=== PATIENT | female | born 1935 | race Caucasian/White ===

== ENCOUNTER → 2017-11-01 11:33 | Outpatient (CLI) | payer MEDICARE, OTHER, SELFPAY ==
[2017-11-01 12:13] LABS: Add Manual Diff / Slide Review NO; Basophils Percent Auto 0.7 % (0-2); Eosinophils Percent Auto 1.3 % (2-4); Lymphocytes Percent Auto 14.5 % (25-40); Mean Corpuscular HGB Conc 33.4 % (30-36); Mean Corpuscular Hemoglobin 31.5 PG (26-34); Mean Corpuscular Volume 94.2 fL (80-100); Monocytes Percent Auto 5.5 % (3-14); Neutrophils Absolute Auto 5700 /uL (3000-5900); Platelet Count 206 X10^3/uL (150-400); Red Blood Cell Count 4.46 X10^6/uL (4.0-5.2); Red Cell Distribution Width 13.2 % (11.6-14.8); White Blood Cell Count 7.3 X10^3/uL (4.5-11.0)
[2017-11-01 12:35] LABS: Erythrocyte Sedimentation Rate 7 MM/HR (0-20)
[2017-11-01 12:59] LABS: Hemoglobin A1C% w Est Avg Glu 6.9 % (4.0-6.0)
[2017-11-01 13:33] LABS: Alanine Aminotransferase 37 IU/L (9-52); Albumin Globulin Ratio 1.6 (1.0-2.8); Alkaline Phosphatase 78 U/L (38-126); Aspartate Aminotransferase 32 IU/L (14-36); BUN Creatinine Ratio 27.1 (6-22); Bilirubin Total 1.4 mg/dL (0.2-1.3); Blood Urea Nitrogen 19 mg/dL (7-17); Calcium 9.3 mg/dL (8.4-10.2); Carbon Dioxide 31 mmol/L (22-32); Chloride 97 mmol/L (98-107); Estimated Glomerular Filt Rate > 60.0 mL/min (>60); Globulin 2.5 g/dL (1.7-4.1); Glucose 219 mg/dL (80-110); HEMOLYSIS < 15 (0-50); Potassium 4.6 mmol/L (3.4-5.1); Sodium 138 mmol/L (137-145); Total Protein 6.5 g/dL (6.3-8.2)
== END ==
PROVIDERS: PCP Family Medicine; Visit Provider Family Medicine
DX: R51 Headache (principal); E11.9 Type 2 diabetes mellitus without complications
CPT/HCPCS: 36415; 80053; 83036; 85025; 85651

== ENCOUNTER → 2018-01-30 11:17 | Outpatient (CLI) | payer MEDICARE, OTHER, SELFPAY ==
[2018-01-30 12:39] LABS: Hemoglobin A1C% w Est Avg Glu 6.9 % (4.0-6.0)
== END ==
PROVIDERS: Family Provider Physician Assistant; PCP Family Medicine; Visit Provider Family Medicine
DX: E11.9 Type 2 diabetes mellitus without complications (principal)
CPT/HCPCS: 36415; 83036

== ENCOUNTER 2020-06-08 13:27 | Emergency (ER) | payer MEDICARE, OTHER, SELFPAY ==
[2020-06-08 13:33] VITALS: BP 171/72; PULSE 79; RESP 22; TEMP 36.4; O2SAT 98
--- NOTE | 2020-06-08 13:38 | ED_ITS ---
HPI - Fall General Chief Complaint: Fall Stated Complaint: hit head in fall today Time Seen by Provider: 06/08/20 13:33 Source: patient and family Mode of arrival: Wheelchair Limitations: other (Dementia) History of Present Illness HPI Narrative: Patient is an 85-year-old female. History of Alzheimer's. Not on anticoagulation. Here for evaluation of head injury. Patient was in the parking lot here at the hospital getting out of the back of the vehicle when she lost her balance. She reached out to try to catch herself from the vehicle however missed and fell hitting her head on the ground. There was no loss of consciousness. Patient has no complaints other than a bump on the back of her head. She is at baseline mental status per family who is at bedside. Related Data Previous Rx's Medication Instructions Recorded divalproex 125 mg capsule,delayed 125 mg PO ONCE #60 cap 05/24/20 release sprinkle donepezil 10 mg tablet 10 mg PO BEDTIME #90 tab 05/24/20 Allergies Allergy/AdvReac Type Severity Reaction Status Date / Time No Known Drug Allergies Allergy Verified 05/24/20 10:37 Review of Systems Constitutional Constitutional: Denies headache(s) Eyes Eyes: Denies change in vision ENT Ears, Nose, Mouth, and Throat: Denies headache(s) Cardiovascular Cardiovascular: Denies chest pain and Denies dyspnea Respiratory Respiratory: Denies dyspnea Musculoskeletal Musculoskeletal: Denies back pain Integumentary/Breasts Comments: Bump on head Neurologic Neurologic: Denies behavioral changes and Denies headache(s) Psychiatric Psychiatric: Denies behavioral changes Hematologic/Lymphatic On Anticoagulants: No Allergic/Immunologic Allergic/Immunologic: Denies urticaria Patient History Medical History Advance care planning Anxiety (Unknown) Breast cancer (1979) Cataracts, bilateral (~1999) Chickenpox (Unknown) Dementia Depression (Unknown) Diabetes (Unknown) Fecal incontinence (2015) Fibromyalgia (Unknown) Generalized headaches (Unknown) Hoarseness Hypercholesterolemia (Unknown) Malaria (Unknown) Memory impairment (07/13/16) Memory loss (Unknown) Migraines (Unknown) Mumps (Unknown) Poor short term memory Stiff neck (09/10/17) Type 2 diabetes mellitus without complication, without long-term current use of insulin (09/10/17) Urinary incontinence (1999) Surgical History History of tonsillectomy Status post appendectomy Status post dilation and curettage Family History Father Heart disease Social History marital status: lives independently: Yes caregiver/support person: Yes education level: master's degree Smoking Status: Never smoker alcohol intake: current substance use type: does not use Smoking Status: Never smoker alcohol intake frequency: 0-2 drinks per day Substance Use Type: does not use Exam Initial Vital Signs Initial Vital Signs: Vital Signs Temperature 97.5 F L 06/08/20 13:33 Pulse Rate 79 06/08/20 13:33 Respiratory Rate 22 06/08/20 13:33 Blood Pressure 171/72 H 06/08/20 13:33 Pulse Oximetry 98 06/08/20 13:33 Const General: cooperative, healthy appearing and comfortable HENMT Head: abrasion, contusion and No laceration Resp Effort & Inspection: normal respiratory effort Cardio Rate: regular rate Back/Spine/Pelvis Cervical Spine: No cervical spinal tenderness Thoracic/Lumbar Spine: No thoracic spinal tenderness and No lumbar spinal tenderness Skin Other: Contusion to back of head Neuro Other: Baseline mental status per family at bedside Extrem General: normal to inspection and capillary refill normal Psych Appearance: grossly normal and well kempt Course Orders Ordered: ED Orders 06/08/20 13:37 CT head/brain wo con Stat Vital Signs Vital signs: Vital Signs - 8 hr 06/08/20 13:33 Temperature 97.5 F L Pulse Rate 79 Respiratory Rate 22 Blood Pressure 171/72 H Pulse Oximetry 98 MDM - Fall Imaging Data CT scan - head: Radiologist's Impression: [address] [id number] Scan ReportSigned Patient: Vickie Alston LMR#: [id number]: 5Acct:[id number]/Sex: 85 / FDate of Service: 06/08/20Loc: EDAccession Number: [id number] Procedure: CT head/brain wo con Ordering Provider: Puneet Delacruz D.O. PROCEDURE: CT HEAD/BRAIN WO CON INDICATIONS: fall hit head no blood thinners TECHNIQUE: Noncontrast 4.5 mm thick angled axial sections acquired from the foramen magnum to the vertex, with coronal and sagittal reformats. For radiation dose reduction, the following was used: automated exposure control, adjustment of mA and/or kV according to patient size. COMPARISON: None. FINDINGS: Image quality: Excellent. CSF spaces: Basal cisterns are patent. No extra-axial fluid collections. The ventricles are symmetric in size and shape. Brain: No intracranial bleeds or masses. There is cerebral volume loss for age, with resultant ventricular and sulcal prominence. There are periventricular and deep white matter chronic small vessel ischemic changes. There is intracranial internal carotid artery atherosclerosis. Skull and face: Calvarium and visualized facial bones appear intact, without suspicious lesions. Large midline parietal scalp hematoma. Sinuses: Visualized sinuses and mastoids are clear. IMPRESSION: No acute intracranial disease process. Dictated by: Maryam Riojas MD, PhD on 06/08/2020 at 13:04 Approved by: Maryam Riojas MD, PhD on 06/08/2020 at 13:07 [facility] Narrative Medical decision making narrative: The abrasion on the back of her head needs no intervention here in the ER. Head CT shows no signs of skull fracture or bleed. She is at baseline mental status per family who is at bedside. She does not report any musculoskeletal injury. I feel we can hold on any rib further radiologic studies for now. Patient and family given return precautions and fo llow-up instructions. They expressed understanding and agreement. Discharge Plan Departure Patient Disposition: Home Clinical Impression: Fall, Closed head injury, Abrasion of scalp, Contusion of scalp Instructions: How to Prevent Falls Activity Restrictions/Additional Instructions: She can shower like normal in use open water like normal. Be careful over the next couple days with brushing her hair. Return to the emergency department for any new worsening symptoms Prescriptions: No Action divalproex 125 mg capsule, delayed rel sprinkle 125 mg PO ONCE Qty: 60 RF: 1 donepezil 10 mg tablet 10 mg PO BEDTIME Qty: 90 RF: 3 Referrals: Samantha Light ARNP [Primary Care Provider] -
== END 2020-06-08 14:34 | disposition home or self-care (01) ==
PROVIDERS: Emergency Provider Emergency Medicine; Family Provider Physician Assistant; PCP Nurse Practitioner
DX: S09.90XA Unspecified injury of head, initial encounter (principal); S00.03XA Contusion of scalp, initial encounter; S00.01XA Abrasion of scalp, initial encounter; W19.XXXA Unspecified fall, initial encounter; G30.9 Alzheimer's disease, unspecified; F02.80 Dementia in other diseases classified elsewhere, unspecified severity, without behavioral disturbance, psychotic disturbance, mood disturbance, and anxiety; E11.9 Type 2 diabetes mellitus without complications
CPT/HCPCS: 70450; 99283; 99284

== ENCOUNTER → 2020-07-20 11:13 | Outpatient (CLI) | payer MEDICARE, OTHER, SELFPAY ==
--- NOTE | 2020-07-20 | DI.MG.S_ITS ---
UNILATERAL RIGHT DIGITAL SCREENING MAMMOGRAM 3D/2D WITH CAD: 07/20/2020 CLINICAL: Routine screening. Breast cancer. Comparison is made to exams dated: 08/09/2017 mammogram, 07/18/2017 mammogram, and 05/02/2016 mammogram - [facility]. The tissue of right breast is extremely dense, which lowers the sensitivity of mammography. Current study was also evaluated with a Computer Aided Detection (CAD) system. No significant masses, calcifications, or other findings are seen in the breast. There has been no significant interval change. IMPRESSION: NEGATIVE There is no mammographic evidence of malignancy. A 1 year screening mammogram is recommended. This exam was interpreted at Station ID: [id number]. NOTE: For mammograms, a report in lay terms will be sent to the patient. Approximately 15% of breast malignancies will not be visualized mammographically. In the management of a palpable breast mass, a negative mammogram must not discourage biopsy of a clinically suspicious lesion. Electronically Signed By: Piyush nicole/amy:07/20/2020 16:17:14 letter sent: Normal Exam ACR BI-RADS Category 1: Negative [id number]
== END ==
PROVIDERS: Family Provider Physician Assistant; PCP Nurse Practitioner; Referring Provider Nurse Practitioner; Visit Provider Nurse Practitioner
DX: Z12.31 Encounter for screening mammogram for malignant neoplasm of breast (principal); Z85.3 Personal history of malignant neoplasm of breast
CPT/HCPCS: 77063; 77067

== ENCOUNTER → 2020-10-12 11:04 | Outpatient (CLI) | payer MEDICARE, OTHER, SELFPAY ==
[2020-10-12] MEDS: COVID-19 VACC, Ad26(JANSSEN)/PF 0.5 ML IM (11:14)
== END ==
PROVIDERS: Family Provider Physician Assistant; PCP Nurse Practitioner; Visit Provider Internal Medicine
DX: Z23 Encounter for immunization (principal)
CPT/HCPCS: 0031A; 91303

== ENCOUNTER → 2020-10-25 15:28 | Outpatient (ROUT) | payer MEDICARE, OTHER, SELFPAY ==
[2020-10-25 15:30] LABS: RBC Urine None Seen (0-5/HPF)
[2020-10-25 15:42] LABS: Appearance Urine UA CLOUDY; Bilirubin Urine UA NEGATIVE (NEGATIVE); Color Urine UA YELLOW; Glucose Urine UA NEGATIVE (Negative); Ketones Urine UA NEGATIVE (NEGATIVE); Leukocyte Esterase Urine UA NEGATIVE (NEGATIVE); Nitrite Urine UA POSITIVE (Negative); Occult Blood Urine UA NEGATIVE (Negative); Protein Urine UA NEGATIVE (Negative); Urobilinogen Urine UA 0.2 E.U./dL (0.2)
[2020-10-25 15:57] LABS: Amorphous Sediment Urine 2+; Bacteria Urine Many (>30); Culture Indicated Urine Specimen Cultured; Squamous Epithelial Cell Urine 0-1 /HPF (0-5/HPF); WBC Urine 1-5/HPF (0-5/HPF)
== END ==
PROVIDERS: Family Provider Physician Assistant; PCP Nurse Practitioner; Visit Provider Nurse Practitioner Family
DX: R29.6 Repeated falls (principal); R41.0 Disorientation, unspecified
CPT/HCPCS: 81001; 87077; 87086; 87186

== ENCOUNTER 2020-11-22 19:12 | Emergency (ER) | payer MEDICARE, OTHER, SELFPAY ==
--- NOTE | 2020-11-22 19:12 | DI.CT.S_ITS ---
PROCEDURE: CT HEAD/BRAIN WO CON INDICATIONS: fall with hx of dementia, contusion on back of head TECHNIQUE: Noncontrast 4.5 mm thick angled axial sections acquired from the foramen magnum to the vertex, with coronal and sagittal reformats. For radiation dose reduction, the following was used: automated exposure control, adjustment of mA and/or kV according to patient size. COMPARISON: [facility], CT, CT HEAD/BRAIN WO CON, 06/08/2020, 13:37. FINDINGS: Image quality: Excellent. CSF spaces: Basal cisterns are patent. No extra-axial fluid collections. The ventricles are symmetric in size and shape. Brain: No intracranial bleeds or masses. There is moderate cerebral volume loss for age, with resultant ventricular and sulcal prominence. There are moderate periventricular and deep white matter chronic small vessel ischemic changes. There is intracranial internal carotid artery atherosclerosis. Skull and face: Calvarium and visualized facial bones appear intact, without suspicious lesions. Posterior vertex scalp contusion/hematoma. Sinuses: Visualized sinuses and mastoids are clear. IMPRESSION: 1. CT head without acute intracranial abnormalities or acute calvarial fractures. 2. Age-related senescent changes and sequela of chronic small vessel ischemic disease. 3. Posterior vertex scalp contusion/hematoma. Dictated by: Rufus Middleton M.D. on 11/22/2020 at 20:09 Approved by: Rufus Middleton M.D. on 11/22/2020 at 20:11
[2020-11-22 19:15] VITALS: BP 125/95; PULSE 75; RESP 16; TEMP 36.6; O2SAT 98; BMI 20.1
--- NOTE | 2020-11-22 20:23 | ED_ITS ---
HPI - Fall General Chief Complaint: Fall Stated Complaint: GLF, not on thinners Time Seen by Provider: 11/22/20 19:12 Source: patient and EMS Mode of arrival: EMS History of Present Illness HPI Narrative: Patient is an 85-year-old female not on anticoagulation who is brought in by EMS from the local [facility] for evaluation of a fall. Patient states that she fell ?because I am getting old ?it appears that she has had multiple falls recently. She did hit her head. There was no loss of consciousness. She does report some pain in her right shoulder but this potentially is not new from the fall today as she states that it is been hurting since she fell a couple days ago. She denies any hip pain. No neck pain. Related Data Previous Rx's Medication Instructions Recorded donepezil 10 mg tablet 10 mg PO BEDTIME #90 tab 05/24/20 divalproex 125 mg capsule,delayed 125 mg PO ONCE #180 cap 06/14/20 release sprinkle acetaminophen 325 mg capsule 650 mg PO Q4H PRN #30 cap 08/08/20 bisacodyl 5 mg tablet 10 mg PO BEDTIME PRN #30 tab 08/08/20 magnesium hydroxide 400 mg/5 mL 30 ml PO DAILY PRN #3000 ml 08/08/20 oral suspension (Milk of Magnesia) Allergies Allergy/AdvReac Type Severity Reaction Status Date / Time No Known Drug Allergies Allergy Verified 06/14/20 12:13 Review of Systems Constitutional Constitutional: Denies headache(s) Eyes Comments: Patient denies any vision changes ENT Ears, Nose, Mouth, and Throat: Denies headache(s) Cardiovascular Comments: She denies any chest pain Respiratory Comments: She denies any shortness of breath Gastrointestinal Comments: She denies any abdominal pain Musculoskeletal Musculoskeletal: Reports as per HPI Integumentary/Breasts Comments: A bump to the back of her head Neurologic Neurologic: Denies headache(s) Psychiatric Psychiatric: Reports system reviewed and no additional complaints, except as documented Hematologic/Lymphatic On Anticoagulants: No Allergic/Immunologic Allergic/Immunologic: Reports system reviewed and no additional complaints, except as documented Patient History Medical History Advance care planning Anxiety (Unknown) Breast cancer (1979) Cataracts, bilateral (~1999) Chickenpox (Unknown) Dementia Depression (Unknown) Diabetes (Unknown) Fecal incontinence (2016) Fibromyalgia (Unknown) Generalized headaches (Unknown) Hoarseness Hypercholesterolemia (Unknown) Malaria (Unknown) Memory impairment (07/13/16) Memory loss (Unknown) Migraines (Unknown) Mumps (Unknown) Poor short term memory Stiff neck (09/10/17) Type 2 diabetes mellitus without complication, without long-term current use of insulin (09/10/17) Urinary incontinence (1999) Surgical History History of tonsillectomy Status post appendectomy Status post dilation and curettage Family History Father Heart disease Social History marital status: lives independently: Yes caregiver/support person: Yes education level: master's degree Smoking Status: Never smoker alcohol intake: current substance use type: does not use Smoking Status: Never smoker alcohol intake frequency: 0-2 drinks per day Substance Use Type: does not use Exam Initial Vital Signs Initial Vital Signs: Vital Signs Temperature 98 F 11/22/20 19:15 Pulse Rate 75 11/22/20 19:15 Respiratory Rate 16 11/22/20 19:15 Blood Pressure 125/95 H 11/22/20 19:15 Pulse Oximetry 98 11/22/20 19:15 Const General: cooperative, healthy appearing and comfortable [facility] Head: No abrasion, contusion (Right posterior aspect to the scalp.) and No laceration Eyes General: appearance normal, both eyes and all related structures Resp Auscultation: clear to auscultation bilaterally Cardio Rate: regular rate Back/Spine/Pelvis Cervical Spine: No cervical spinal tenderness Skin General: no rashes or lesions noted Neuro General: patient alert, patient awake and moves all extremities Extrem Other: She has some discomfort with active movement of her right shoulder however with passive movement she reports no discomfort. Her right elbow and right wrist unremarkable. Left upper extremity is unremarkable. Pelvis is stable. No lower extremity findings. Psych Appearance: grossly normal and well kempt Course Orders Ordered: ED Orders 11/22/20 19:12 CT head/brain wo con Stat Vital Signs Vital signs: Vital Signs - 8 hr 11/22/20 20:46 Pulse Rate 72 Respiratory Rate 17 Pulse Oximetry 99 MDM - Fall Imaging Data CT scan - head: Radiologist's Impression: [place] [id number] [place] [id number] Scan ReportSigned Patient: Vickie Alston LMR#: [id number]: 5Acct:[id number]/Sex: 85 / FDate of Service: 11/22/20Loc: EDAccession Number: [id number] Procedure: CT head/brain wo con Ordering Provider: Puneet Delacruz D.O. PROCEDURE: CT HEAD/BRAIN WO CON INDICATIONS: fall with hx of dementia, contusion on back of head TECHNIQUE: Noncontrast 4.5 mm thick angled axial sections acquired from the foramen magnum to the vertex, with coronal and sagittal reformats. For radiation dose reduction, the following was used: automated exposure control, adjustment of mA and/or kV according to patient size. COMPARISON: Merged With [facility], CT, CT HEAD/BRAIN WO CON, 06/08/2020, 13:37. FINDINGS: Image quality: Excellent. CSF spaces: Basal cisterns are patent. No extra-axial fluid collections. The ventricles are symmetric in size and shape. Brain: No intracranial bleeds or masses. There is moderate cerebral volume loss for age, with resultant ventricular and sulcal prominence. There are moderate periventricular and deep white matter chronic small vessel ischemic changes. There is intracranial internal carotid artery atherosclerosis. Skull and face: Calvarium and visualized facial bones appear intact, without suspicious lesions. Posterior vertex scalp contusion/hematoma. Sinuses: Visualized sinuses and mastoids are clear. IMPRESSION: 1. CT head without acute intracranial abnormalities or acute calvarial fractures. 2. Age-related senescent changes and sequela of chronic small vessel ischemic disease. 3. Posterior vertex scalp contusion/hematoma. Dictated by: Rufus Middleton M.D. on 11/22/2020 at 20:09 Approved by: Rufus Middleton M.D. on 11/22/2020 at 20:11 [facility] Narrative Medical decision making narrative: CT scan of the head shows no acute bleed. No signs of skull fracture. She does have a contusion to the right side seen on the CT scan and this is consistent with what is found on the exam. There is no overlying skin issues that need intervention here in the ER. No other acute issues were found on the exam no reported by the patient or family who is at bedside. I feel that we can hold on further workup for now. Will discharge patient home with return precautions. Everyone expressed understanding and agreement. Discharge Plan Departure Patient Disposition: Home Clinical Impression: Fall, Contusion of scalp Instructions: How to Prevent Falls Activity Restrictions/Additional Instructions: She can continue all of her medications as directed. Contact her primary doctor for a follow-up. Return to the emergency department for any new or worsening symptoms Prescriptions: No Action magnesium hydroxide [Milk of Magnesia] 400 mg/5 mL suspension 30 ml PO DAILY PRN (Reason: constipation) Qty: 3000 RF: 3 bisacodyl 5 mg tablet 10 mg PO BEDTIME PRN (Reason: constipation) Qty: 30 RF: 3 acetaminophen 325 mg capsule 650 mg PO Q4H PRN (Reason: fever or pain) Qty: 30 RF: 3 divalproex 125 mg capsule, delayed rel sprinkle 125 mg PO ONCE Qty: 180 RF: 3 donepezil 10 mg tablet 10 mg PO BEDTIME Qty: 90 RF: 3 Referrals: Elvi Pendleton MD [Primary Care Provider] -
[2020-11-22 20:46] VITALS: PULSE 72; RESP 17; O2SAT 99
== END 2020-11-22 20:54 | disposition home or self-care (01) ==
PROVIDERS: Emergency Provider Emergency Medicine; Family Provider Physician Assistant; PCP Internal Medicine
DX: S00.03XA Contusion of scalp, initial encounter (principal); M25.511 Pain in right shoulder; W19.XXXA Unspecified fall, initial encounter
CPT/HCPCS: 70450; 99283; 99284

== ENCOUNTER → 2020-12-17 07:32 | Outpatient (ROUT) | payer MEDICARE, OTHER, SELFPAY ==
[2020-12-17 07:34] LABS: Bacteria Urine None Seen; RBC Urine None Seen (0-5/HPF); WBC Urine None Seen (0-5/HPF)
[2020-12-17 07:39] LABS: Appearance Urine UA CLEAR; Bilirubin Urine UA NEGATIVE (NEGATIVE); Color Urine UA YELLOW; Glucose Urine UA 2+ g/dL (Negative); Ketones Urine UA NEGATIVE (NEGATIVE); Leukocyte Esterase Urine UA NEGATIVE (NEGATIVE); Nitrite Urine UA NEGATIVE (Negative); Occult Blood Urine UA NEGATIVE (Negative); Protein Urine UA NEGATIVE (Negative); Urobilinogen Urine UA 0.2 E.U./dL (0.2)
[2020-12-17 07:44] LABS: Culture Indicated Urine Cult Not Indicated; Urine Comments Microscopic Normal
== END ==
PROVIDERS: PCP Internal Medicine; Visit Provider Registered Nurse
DX: N39.9 Disorder of urinary system, unspecified (principal)
CPT/HCPCS: 81001

== ENCOUNTER 2020-12-31 17:03 | Emergency (ER) | payer MEDICARE, OTHER, SELFPAY ==
[2020-12-31 17:05] VITALS: BP 183/81; PULSE 80; RESP 21; TEMP 36.8; O2SAT 99
--- NOTE | 2020-12-31 17:05 | DI.RAD.S_ITS ---
PROCEDURE: XR RIBS LT MIN 3V W CXR1V INDICATIONS: left rib pain, GLF TECHNIQUE: 2 views of the left ribs were acquired, along with a single view chest. COMPARISON: None. FINDINGS: Surgical changes and devices: None. Bones and chest wall: Nondisplaced left 9th and minimally displaced posterior 10th rib fractures noted. No pneumothorax. Lungs and pleura: No pleural effusions or pneumothorax. Lungs appear clear. Mediastinum: Mediastinal contours appear normal. Heart size is normal. IMPRESSION: Left 9th and 10th rib fractures without pneumothorax. Incidental cholelithiasis in the right upper quadrant noted. Approved by: Stiven Jackson M.D. on 12/31/2020 at 17:17
--- NOTE | 2020-12-31 17:10 | ED.FALL ---
HPI - Fall <Darius Gurrola PA-C - Last Filed: 01/01/21 13:38> General Chief Complaint: Fall Stated Complaint: GLF, hip pain Time Seen by Provider: 12/31/20 17:12 Source: EMS Mode of arrival: EMS History of Present Illness HPI Narrative: Vickie presents today with chief complaint of ground level fall that occurred at her memory care center earlier today. She has had frequent falls recently and was brought here via EMS. She is complaining of left-sided rib pain. EMS reports that there was no loss of consciousness. Patient reports that she tripped in her room. She has significant past medical if surgery of dementia, poor short-term memory, anxiety. Patient's POA came in about a half an hour after the initial history. She reported that the patient has had 3 falls over the last 3 days. She reports that she has frequent falls but this is a bit more frequent than normal. Related Data Previous Rx's Medication Instructions Recorded donepezil 10 mg tablet 10 mg PO BEDTIME #90 tab 05/24/20 divalproex 125 mg capsule,delayed 125 mg PO ONCE #180 cap 06/14/20 release sprinkle acetaminophen 325 mg capsule 650 mg PO Q4H PRN #30 cap 08/08/20 bisacodyl 5 mg tablet 10 mg PO BEDTIME PRN #30 tab 08/08/20 magnesium hydroxide 400 mg/5 mL 30 ml PO DAILY PRN #3000 ml 08/08/20 oral suspension (Milk of Magnesia) oxycodone 5 mg capsule 5 mg PO TID PRN #14 cap 12/31/20 Allergies Allergy/AdvReac Type Severity Reaction Status Date / Time No Known Drug Allergies Allergy Verified 12/31/20 17:05 Review of Systems <Darius Gurrola PA-C - Last Filed: 01/01/21 13:38> Review of Systems Narrative: As per HPI Patient History <Darius Gurrola PA-C - Last Filed: 01/01/21 13:38> Medical History Advance care planning Anxiety (Unknown) Breast cancer (1979) Cataracts, bilateral (~2000) Chickenpox (Unknown) Dementia Depression (Unknown) Diabetes (Unknown) Fecal incontinence (2016) Fibromyalgia (Unknown) Generalized headaches (Unknown) Hoarseness Hypercholesterolemia (Unknown) Malaria (Unknown) Memory impairment (07/13/16) Memory loss (Unknown) Migraines (Unknown) Mumps (Unknown) Poor short term memory Stiff neck (09/10/17) Type 2 diabetes mellitus without complication, without long-term current use of insulin (09/10/17) Urinary incontinence (1999) Surgical History History of tonsillectomy Status post appendectomy Status post dilation and curettage Family History Father Heart disease Social History marital status: lives independently: Yes caregiver/support person: Yes education level: master's degree Smoking Status: Never smoker alcohol intake: current substance use type: does not use Smoking Status: Never smoker alcohol intake frequency: 0-2 drinks per day Substance Use Type: does not use Exam <Darius Gurrola PA-C - Last Filed: 01/01/21 13:38> Narrative Exam Narrative: Exam Narrative: Const General: cooperative, healthy appearing, comfortable, no acute distress, well developed and well groomed Nutritional Appearance: average body habitus Orientation: alert and oriented x3 HENMT Head: normal to inspection and atraumatic, no hematoma or abrasions noted, no scalp tenderness Ears: hearing grossly normal bilaterally, no hemotympanum noted Nose: external nose normal and nares normal Face and sinus: normal facial exam Neck Neck: normal visual inspection and supple, no midline spinal tenderness, full range of motion without discomfort Resp Effort & Inspection: normal respiratory effort, able to speak in complete sentences, no audible wheezes, not labored, no nasal flaring and no respiratory distress, clear to auscultation bilaterally Cardiac Regular rate and rhythm, no discernible murmur, rubs or gallops. GI Nondistended, nontender to palpation Musculoskeletal No tenderness noted to bilateral upper extremities. Full range of motion of bilateral upper extremities and lower extremities. No bony tenderness to lower extremities. No pelvic pain or instability noted. Skin No abrasions or bruising noted. Neuro General: alert, oriented x3, gait normal, tone normal and moves all extremities Cognition: normal cognition Speech: speech normal Gait: normal gait Psych Appearance: grossly normal and well kempt Mental Status: mental status grossly normal Speech and Movement: speech and movement normal Mood: congruent mood Affect: normal affect Initial Vital Signs Initial Vital Signs: Vital Signs Temperature 98.2 F 12/31/20 17:05 Pulse Rate 80 12/31/20 17:05 Respiratory Rate 21 12/31/20 17:05 Blood Pressure 183/81 H 12/31/20 17:05 Pulse Oximetry 99 12/31/20 17:05 <Karmen Mesa MD - Last Filed: 01/01/21 17:02> Initial Vital Signs Initial Vital Signs: Vital Signs Temperature 98.2 F 12/31/20 17:05 Pulse Rate 80 12/31/20 17:05 Respiratory Rate 21 12/31/20 17:05 Blood Pressure 183/81 H 12/31/20 17:05 Pulse Oximetry 99 12/31/20 17:05 Course <Darius Gurrola PA-C - Last Filed: 01/01/21 13:38> Orders Ordered: Discontinued Medications Morphine Sulfate (Morphine 2 Mg/Ml Inj) 2 mg IV NOW ONE Stop: 12/31/20 18:05 Last Admin: 12/31/20 18:26 Dose: 2 mg Documented by: ATAYLOR Vital Signs Vital signs: Vital Signs - 8 hr 12/31/20 17:05 Temperature 98.2 F Pulse Rate 80 Respiratory Rate 21 Blood Pressure 183/81 H Pulse Oximetry 99 <Karmen Mesa MD - Last Filed: 01/01/21 17:02> Orders Ordered: Discontinued Medications Morphine Sulfate (Morphine 2 Mg/Ml Inj) 2 mg IV NOW ONE Stop: 12/31/20 18:05 Last Admin: 12/31/20 18:26 Dose: 2 mg Documented by: ATAYLOR Vital Signs Vital signs: Vital Signs - 8 hr 12/31/20 17:05 Temperature 98.2 F Pulse Rate 80 Respiratory Rate 21 Blood Pressure 183/81 H Pulse Oximetry 99 MDM - Fall <Darius Gurrola PA-C - Last Filed: 01/01/21 13:38> Lab Data Result diagrams: 12/31/20 18:40 12/31/20 18:40 Labs: Lab Results 12/31/20 12/31/20 12/31/20 Range/Units 18:40 18:40 18:40 WBC 9.3 (4.5-11.0) X10^3/uL RBC 4.56 (4.0-5.2) X10^6/uL Hgb 13.6 (12.0-16.0) g/dL Hct 41.2 (36-46) % MCV 90.4 (80-100) fL MCH 29.9 (26-34) PG MCHC 33.1 (30-36) % RDW 13.7 (11.6-14.8) % Plt Count 287 (150-400) X10^3/uL Neut % (Auto) 77.5 H (50-75) % Lymph % (Auto) 15.3 L (25-40) % Stephenson % (Auto) 5.9 (3-14) % Eos % (Auto) 0.7 L (2-4) % Baso % (Auto) 0.6 (0-2) % Neut # (Auto) 7200 H (4003-4898) /uL Lymph # (Auto) 1400 (8650-2264) /uL Stephenson # (Auto) 500 (0-900) /uL Eos # (Auto) 100 (0-450) /uL Baso # (Auto) 100 (0-100) /uL PT 10.9 (10.1-12.7) SECONDS INR 1.0 (0.9-1.3) Sodium 132 L (137-145) mmol/L Potassium 3.6 (3.4-5.1) mmol/L Chloride 99 (98-107) mmol/L Carbon Dioxide 23 (22-32) mmol/L BUN 16 (7-17) mg/dL Creatinine 0.62 (0.52-1.04) mg/dL Estimated GFR > 60.0 (>60) mL/min BUN/Creatinine Ratio 25.8 H (6-22) Glucose 258 H (80-110) mg/dL Calcium 9.3 (8.4-10.2) mg/dL Total Bilirubin 1.6 H (0.2-1.3) mg/dL AST 28 (14-36) IU/L ALT 18 (<35) IU/L Alkaline Phosphatase 109 (38-126) U/L Total Creatine Kinase (30-135) U/L CK-MB (CK-2) CK-MB (CK-2) Rel Index Troponin I (0.01-0.034) ng/mL Total Protein 6.8 (6.3-8.2) g/dL Albumin 4.1 (3.5-5.0) g/dL Globulin 2.7 (1.7-4.1) g/dL Albumin/Globulin Ratio 1.5 (1.0-2.8) SARS-CoV-2 (PCR) (Negative) 12/31/20 12/31/20 Range/Units 18:40 18:40 WBC (4.5-11.0) X10^3/uL RBC (4.0-5.2) X10^6/uL Hgb (12.0-16.0) g/dL Hct (36-46) % MCV (80-100) fL MCH (26-34) PG MCHC (30-36) % RDW (11.6-14.8) % Plt Count (150-400) X10^3/uL Neut % (Auto) (50-75) % Lymph % (Auto) (25-40) % Stephenson % (Auto) (3-14) % Eos % (Auto) (2-4) % Baso % (Auto) (0-2) % Neut # (Auto) (2532-2624) /uL Lymph # (Auto) (1466-5090) /uL Stephenson # (Auto) (0-900) /uL Eos # (Auto) (0-450) /uL Baso # (Auto) (0-100) /uL PT (10.1-12.7) SECONDS INR (0.9-1.3) Sodium (137-145) mmol/L Potassium (3.4-5.1) mmol/L Chloride (98-107) mmol/L Carbon Dioxide (22-32) mmol/L BUN (7-17) mg/dL Creatinine (0.52-1.04) mg/dL Estimated GFR (>60) mL/min BUN/Creatinine Ratio (6-22) Glucose (80-110) mg/dL Calcium (8.4-10.2) mg/dL Total Bilirubin (0.2-1.3) mg/dL AST (14-36) IU/L ALT (<35) IU/L Alkaline Phosphatase (38-126) U/L Total Creatine Kinase 67 (30-135) U/L CK-MB (CK-2) TNP CK-MB (CK-2) Rel Index TNP Troponin I < 0.012 (0.01-0.034) ng/mL Total Protein (6.3-8.2) g/dL Albumin (3.5-5.0) g/dL Globulin (1.7-4.1) g/dL Albumin/Globulin Ratio (1.0-2.8) SARS-CoV-2 (PCR) Negative (Negative) MDM Narrative Medical decision making narrative: Vickie presents with what appears to be an isolated fracture to 2 of her ribs. The rest of her examination is reassuring. I called and discussed her injuries and the case with her memory care unit and they agreed to bring her back as long she had a prescription for pain management. She has not required much pain medication here in the emergency department. We will send a prescription for oxycodone back with her. POA and patient both agree to this plan. <Karmen Mesa MD - Last Filed: 01/01/21 17:02> Lab Data Labs: Lab Results 12/31/20 12/31/20 12/31/20 Range/Units 18:40 18:40 18:40 WBC 9.3 (4.5-11.0) X10^3/uL RBC 4.56 (4.0-5.2) X10^6/uL Hgb 13.6 (12.0-16.0) g/dL Hct 41.2 (36-46) % MCV 90.4 (80-100) fL MCH 29.9 (26-34) PG MCHC 33.1 (30-36) % RDW 13.7 (11.6-14.8) % Plt Count 287 (150-400) X10^3/uL Neut % (Auto) 77.5 H (50-75) % Lymph % (Auto) 15.3 L (25-40) % Stephenson % (Auto) 5.9 (3-14) % Eos % (Auto) 0.7 L (2-4) % Baso % (Auto) 0.6 (0-2) % Neut # (Auto) 7200 H (0723-8012) /uL Lymph # (Auto) 1400 (3695-0267) /uL Stephenson # (Auto) 500 (0-900) /uL Eos # (Auto) 100 (0-450) /uL Baso # (Auto) 100 (0-100) /uL PT 10.9 (10.1-12.7) SECONDS INR 1.0 (0.9-1.3) Sodium 132 L (137-145) mmol/L Potassium 3.6 (3.4-5.1) mmol/L Chloride 99 (98-107) mmol/L Carbon Dioxide 23 (22-32) mmol/L BUN 16 (7-17) mg/dL Creatinine 0.62 (0.52-1.04) mg/dL Estimated GFR > 60.0 (>60) mL/min BUN/Creatinine Ratio 25.8 H (6-22) Glucose 258 H (80-110) mg/dL Calcium 9.3 (8.4-10.2) mg/dL Total Bilirubin 1.6 H (0.2-1.3) mg/dL AST 28 (14-36) IU/L ALT 18 (<35) IU/L Alkaline Phosphatase 109 (38-126) U/L Total Creatine Kinase (30-135) U/L CK-MB (CK-2) CK-MB (CK-2) Rel Index Troponin I (0.01-0.034) ng/mL Total Protein 6.8 (6.3-8.2) g/dL Albumin 4.1 (3.5-5.0) g/dL Globulin 2.7 (1.7-4.1) g/dL Albumin/Globulin Ratio 1.5 (1.0-2.8) SARS-CoV-2 (PCR) (Negative) 12/31/20 12/31/20 Range/Units 18:40 18:40 WBC (4.5-11.0) X10^3/uL RBC (4.0-5.2) X10^6/uL Hgb (12.0-16.0) g/dL Hct (36-46) % MCV (80-100) fL MCH (26-34) PG MCHC (30-36) % RDW (11.6-14.8) % Plt Count (150-400) X10^3/uL Neut % (Auto) (50-75) % Lymph % (Auto) (25-40) % Stephenson % (Auto) (3-14) % Eos % (Auto) (2-4) % Baso % (Auto) (0-2) % Neut # (Auto) (1965-7504) /uL Lymph # (Auto) (4367-8773) /uL Stephenson # (Auto) (0-900) /uL Eos # (Auto) (0-450) /uL Baso # (Auto) (0-100) /uL PT (10.1-12.7) SECONDS INR (0.9-1.3) Sodium (137-145) mmol/L Potassium (3.4-5.1) mmol/L Chloride (98-107) mmol/L Carbon Dioxide (22-32) mmol/L BUN (7-17) mg/dL Creatinine (0.52-1.04) mg/dL Estimated GFR (>60) mL/min BUN/Creatinine Ratio (6-22) Glucose (80-110) mg/dL Calcium (8.4-10.2) mg/dL Total Bilirubin (0.2-1.3) mg/dL AST (14-36) IU/L ALT (<35) IU/L Alkaline Phosphatase (38-126) U/L Total Creatine Kinase 67 (30-135) U/L CK-MB (CK-2) TNP CK-MB (CK-2) Rel Index TNP Troponin I < 0.012 (0.01-0.034) ng/mL Total Protein (6.3-8.2) g/dL Albumin (3.5-5.0) g/dL Globulin (1.7-4.1) g/dL Albumin/Globulin Ratio (1.0-2.8) SARS-CoV-2 (PCR) Negative (Negative) Discharge Plan Departure Patient Disposition: Home Clinical Impression: Closed traumatic nondisplaced fracture of rib Instructions: DI for Rib Fracture, How to Prevent Falls Activity Restrictions/Additional Instructions: It was very nice to meet you this evening. You Fractured 2 ribs on her left side. Please use the pain medication as needed for your symptoms. If you experience significant difficulty breathing, sudden worsening pain, or have any additional concerns or complaints do not hesitate to return for re-evaluation. Thank you Darius Gurrola PAC Prescriptions: New oxycodone 5 mg capsule 5 mg PO TID PRN (Reason: rib pain) Qty: 14 RF: 0 No Action magnesium hydroxide [Milk of Magnesia] 400 mg/5 mL suspension 30 ml PO DAILY PRN (Reason: constipation) Qty: 3000 RF: 3 bisacodyl 5 mg tablet 10 mg PO BEDTIME PRN (Reason: constipation) Qty: 30 RF: 3 acetaminophen 325 mg capsule 650 mg PO Q4H PRN (Reason: fever or pain) Qty: 30 RF: 3 divalproex 125 mg capsule, delayed rel sprinkle 125 mg PO ONCE Qty: 180 RF: 3 donepezil 10 mg tablet 10 mg PO BEDTIME Qty: 90 RF: 3 Referrals: Elvi Pendleton MD [Primary Care Provider] - <Karmen Mesa MD - Last Filed: 01/01/21 17:02> [facility]: I was immediately available in the department for consultation throughout this patient's visit. I agree with documentation as above. Karmen Mesa MD
--- NOTE | 2020-12-31 18:03 | DI.CT.S_ITS ---
PROCEDURE: CT HEAD/BRAIN WO CON INDICATIONS: fall, dizziness TECHNIQUE: Noncontrast 4.5 mm thick angled axial sections acquired from the foramen magnum to the vertex, with coronal and sagittal reformats. For radiation dose reduction, the following was used: automated exposure control, adjustment of mA and/or kV according to patient size. COMPARISON: [facility], CT, CT HEAD/BRAIN WO CON, 11/22/2020, 19:19. [facility], CT, CT HEAD/BRAIN WO CON, 06/08/2020, 13:37. FINDINGS: Image quality: Excellent. CSF spaces: Basal cisterns are patent. No extra-axial fluid collections. The ventricles are symmetric in size and shape. Brain: No acute intracranial hemorrhage or mass effect. There is cerebral volume loss for age, with resultant ventricular and sulcal prominence. There are periventricular and deep white matter chronic small vessel ischemic changes. There is intracranial internal carotid artery atherosclerosis. Skull and face: Calvarium and visualized facial bones appear intact, without suspicious lesions. Sinuses: Visualized sinuses and mastoids are clear. IMPRESSION: No acute intracranial abnormality. Chronic microvascular ischemic changes and diffuse cerebral volume loss appear stable. Dictated by: Piyush Sumner M.D. on 12/31/2020 at 19:16 Approved by: Piyush Sumner M.D. on 12/31/2020 at 19:21
[2020-12-31] MEDS: MORPHINE 2 MG/ML INJ IV (18:26)
[2020-12-31 18:39] VITALS: BP 179/84; PULSE 81; RESP 16; O2SAT 99
[2020-12-31 18:54] LABS: Add Manual Diff / Slide Review NO; Basophils Absolute Auto 100 /uL (0-100); Basophils Percent Auto 0.6 % (0-2); Eosinophils Absolute Auto 100 /uL (0-450); Eosinophils Percent Auto 0.7 % (2-4); Hematocrit 41.2 % (36-46); Hemoglobin 13.6 g/dL (12.0-16.0); Lymphocytes Absolute Auto 1400 /uL (1100-4500); Lymphocytes Percent Auto 15.3 % (25-40); Mean Corpuscular HGB Conc 33.1 % (30-36); Mean Corpuscular Hemoglobin 29.9 PG (26-34); Mean Corpuscular Volume 90.4 fL (80-100); Monocytes Absolute Auto 500 /uL (0-900); Monocytes Percent Auto 5.9 % (3-14); Neutrophils Absolute Auto 7200 /uL (1500-7000); Neutrophils Percent Auto 77.5 % (50-75); Platelet Count 287 X10^3/uL (150-400); Red Blood Cell Count 4.56 X10^6/uL (4.0-5.2); Red Cell Distribution Width 13.7 % (11.6-14.8); White Blood Cell Count 9.3 X10^3/uL (4.5-11.0)
[2020-12-31 18:56] LABS: Prothrombin Time 10.9 SECONDS (10.1-12.7)
[2020-12-31 19:01] LABS: Alanine Aminotransferase 18 IU/L (<35); Albumin 4.1 g/dL (3.5-5.0); Albumin Globulin Ratio 1.5 (1.0-2.8); Alkaline Phosphatase 109 U/L (38-126); Aspartate Aminotransferase 28 IU/L (14-36); BUN Creatinine Ratio 25.8 (6-22); Bilirubin Total 1.6 mg/dL (0.2-1.3); Blood Urea Nitrogen 16 mg/dL (7-17); Calcium 9.3 mg/dL (8.4-10.2); Carbon Dioxide 23 mmol/L (22-32); Chloride 99 mmol/L (98-107); Creatine Kinase 67 U/L (30-135); Estimated Glomerular Filt Rate > 60.0 mL/min (>60); Globulin 2.7 g/dL (1.7-4.1); Glucose 258 mg/dL (80-110); HEMOLYSIS 20 (0-50); Potassium 3.6 mmol/L (3.4-5.1); Sodium 132 mmol/L (137-145); Total Protein 6.8 g/dL (6.3-8.2)
[2020-12-31 19:03] VITALS: PULSE 80; O2SAT 93
[2020-12-31 19:12] LABS: Troponin I < 0.012 ng/mL (0.01-0.034)
[2020-12-31 21:22] LABS: COVID19 - ADMIT (NP swab/PCR) Negative (Negative)
[2020-12-31 21:34] VITALS: BP 167/73; O2SAT 91
[2020-12-31 21:45] VITALS: BP 167/73; PULSE 80; RESP 16; O2SAT 94
== END 2020-12-31 21:45 | disposition home or self-care (01) ==
PROVIDERS: Emergency Provider Physician Assistant; PCP Internal Medicine
DX: S22.42XA Multiple fractures of ribs, left side, initial encounter for closed fracture (principal); W19.XXXA Unspecified fall, initial encounter; R29.6 Repeated falls; Z20.822 Contact with and (suspected) exposure to COVID-19; R07.9 Chest pain, unspecified
CPT/HCPCS: 70450; 71101; 80053; 82550; 84484; 85025; 85610; 87635; 93005; 93010; 96374; 99284; C9803; J2270

== ENCOUNTER 2021-01-07 16:48 | Emergency (ER) | payer MEDICARE, OTHER, SELFPAY ==
[2021-01-07 17:16] VITALS: BP 150/70; PULSE 75; RESP 14; TEMP 36.7; O2SAT 94
--- NOTE | 2021-01-07 17:22 | PC.NURSE ---
patient has lump on posterior aspect more on the right side of her head without laceration. She also has bruising on her left ribs from a previous fall.
--- NOTE | 2021-01-07 18:16 | ED.FALL ---
HPI - Fall General Chief Complaint: Fall Stated Complaint: fall/head pain Time Seen by Provider: 01/07/21 17:51 Source: EMS Mode of arrival: EMS History of Present Illness HPI Narrative: Patient is an 85-year-old female who resides at [facility] presenting with fall today. She actually has had increasing falls per her POA. She was seen and evaluated here on 12/31/2020 after a fall. She was found to have left-sided rib fractures she does have significant contusion on the left side. She fell again today. POA thinks that was transitioning from a sitting to a standing position. She uses a wheelchair more often these days. The she apparently hit her head but there is no evidence of head injury trauma she is not on any anticoagulation or anti-platelet. She at her baseline mental status. She has previously had UTI. Related Data Previous Rx's Medication Instructions Recorded donepezil 10 mg tablet 10 mg PO BEDTIME #90 tab 05/24/20 divalproex 125 mg capsule,delayed 125 mg PO ONCE #180 cap 06/14/20 release sprinkle acetaminophen 325 mg capsule 650 mg PO Q4H PRN #30 cap 08/08/20 bisacodyl 5 mg tablet 10 mg PO BEDTIME PRN #30 tab 08/08/20 magnesium hydroxide 400 mg/5 mL 30 ml PO DAILY PRN #3000 ml 08/08/20 oral suspension (Milk of Magnesia) oxycodone 5 mg capsule 5 mg PO TID PRN #14 cap 12/31/20 Allergies Allergy/AdvReac Type Severity Reaction Status Date / Time No Known Drug Allergies Allergy Verified 12/31/20 17:05 Review of Systems Review of Systems Narrative: see HPI, patient is poor historian Patient History Medical History Advance care planning Anxiety (Unknown) Breast cancer (1979) Cataracts, bilateral (~1999) Chickenpox (Unknown) Dementia Depression (Unknown) Diabetes (Unknown) Fecal incontinence (2016) Fibromyalgia (Unknown) Generalized headaches (Unknown) Hoarseness Hypercholesterolemia (Unknown) Malaria (Unknown) Memory impairment (07/13/16) Memory loss (Unknown) Migraines (Unknown) Mumps (Unknown) Poor short term memory Stiff neck (09/10/17) Type 2 diabetes mellitus without complication, without long-term current use of insulin (09/10/17) Urinary incontinence (1999) Surgical History History of tonsillectomy Status post appendectomy Status post dilation and curettage Family History Father Heart disease Social History marital status: lives independently: Yes caregiver/support person: Yes education level: master's degree Smoking Status: Never smoker alcohol intake: current substance use type: does not use Smoking Status: Never smoker alcohol intake frequency: 0-2 drinks per day Substance Use Type: does not use Exam Initial Vital Signs Initial Vital Signs: Vital Signs Temperature 98.1 F 01/07/21 17:16 Pulse Rate 75 01/07/21 17:16 Respiratory Rate 14 01/07/21 17:16 Blood Pressure 150/70 H 01/07/21 17:16 Pulse Oximetry 94 01/07/21 17:16 GENERAL: Alert pleasant 85-year-old female and in no acute distress. HEENT: Head atraumatic,EOMI, pupils reactive, face symmetric, moist mucous membranes CARDIOVASCULAR: Regular rate and rhythm without murmurs, rubs or gallops. RESPIRATORY: Breath sounds equal bilaterally, no wheezes rales or rhonchi. ABDOMEN: Soft, nontender. Normoactive bowel sounds all 4 quadrants. No guarding or rebound. EXTREMITIES: Normal range of motion, no clubbing or edema. Neurovascularly intact NEUROLOGICAL: Alert and oriented x2.Normal gait and speech. SKIN: Significant left-sided contusion more on hip and ribs Course Orders Ordered: ED Orders 01/07/21 18:30 XR ribs LT min 3V w CXR1V Stat 01/07/21 18:31 CT head/brain wo con Stat 01/07/21 18:35 CT chest wo con Stat 01/07/21 18:54 COVID19 -Nasal swab/Pre-Proc Stat Complete Blood Count AUTO DIFF Stat 01/07/21 19:20 Urinalysis and Microscopic Stat 01/07/21 19:50 Comprehensive Metabolic Panel Stat Vital Signs Vital signs: Vital Signs - 8 hr 01/07/21 17:16 01/07/21 19:15 01/07/21 20:20 Temperature 98.1 F Pulse Rate 75 67 74 Respiratory Rate 14 17 23 Blood Pressure 150/70 H 159/71 H 158/74 H Pulse Oximetry 94 96 96 - Fall Lab Data Result diagrams: 01/07/21 18:54 01/07/21 19:50 Labs: Lab Results 01/07/21 01/07/21 01/07/21 Range/Units 18:54 18:54 19:20 WBC 6.3 (4.5-11.0) X10^3/uL RBC 4.34 (4.0-5.2) X10^6/uL Hgb 13.2 (12.0-16.0) g/dL Hct 39.6 (36-46) % MCV 91.2 (80-100) fL MCH 30.4 (26-34) PG MCHC 33.3 (30-36) % RDW 14.2 (11.6-14.8) % Plt Count 317 (150-400) X10^3/uL Neut % (Auto) 69.6 (50-75) % Lymph % (Auto) 22.0 L (25-40) % [place] % (Auto) 5.3 (3-14) % Eos % (Auto) 2.3 (2-4) % Baso % (Auto) 0.8 (0-2) % Neut # (Auto) 4400 (0672-8860) /uL Lymph # (Auto) 1400 (6556-0553) /uL [place] # (Auto) 300 (0-900) /uL Eos # (Auto) 100 (0-450) /uL Baso # (Auto) 0 (0-100) /uL Sodium (137-145) mmol/L Potassium (3.4-5.1) mmol/L Chloride (98-107) mmol/L Carbon Dioxide (22-32) mmol/L BUN (7-17) mg/dL Creatinine (0.52-1.04) mg/dL Estimated GFR (>60) mL/min BUN/Creatinine Ratio (6-22) Glucose (80-110) mg/dL Calcium (8.4-10.2) mg/dL Total Bilirubin (0.2-1.3) mg/dL AST (14-36) IU/L ALT (<35) IU/L Alkaline Phosphatase (38-126) U/L Total Protein (6.3-8.2) g/dL Albumin (3.5-5.0) g/dL Globulin (1.7-4.1) g/dL Albumin/Globulin Ratio (1.0-2.8) Urine Color Yellow Urine Appearance Clear Urine pH 6.0 (4.5-8.0) Ur Specific Or[place] 1.010 (1.000-1.035) Urine Protein Negative (Negative) Urine Glucose (UA) 2+ H (Negative) g/dL Urine Ketones Negative (NEGATIVE) Urine Occult Blood Negative (Negative) Urine Nitrate Negative (Negative) Urine Bilirubin Negative (NEGATIVE) Urine Urobilinogen 0.2 (0.2) E.U./dL Ur Leukocyte Esterase Negative (NEGATIVE) Urine RBC None seen (0-5/HPF) Urine WBC 1-5/hpf (0-5/HPF) Ur Squamous Epith Cells 1-5 /hpf (0-5/HPF) Urine Bacteria Few (2-10) H (None) Ur Culture Indicated? Cult not indicated SARS-CoV-2 (PCR) Negative (Negative) 01/07/21 Range/Units 19:50 WBC (4.5-11.0) X10^3/uL RBC (4.0-5.2) X10^6/uL Hgb (12.0-16.0) g/dL Hct (36-46) % MCV (80-100) fL MCH (26-34) PG MCHC (30-36) % RDW (11.6-14.8) % Plt Count (150-400) X10^3/uL Neut % (Auto) (50-75) % Lymph % (Auto) (25-40) % [place] % (Auto) (3-14) % Eos % (Auto) (2-4) % Baso % (Auto) (0-2) % Neut # (Auto) (4961-2082) /uL Lymph # (Auto) (5765-7542) /uL [place] # (Auto) (0-900) /uL Eos # (Auto) (0-450) /uL Baso # (Auto) (0-100) /uL Sodium 135 L (137-145) mmol/L Potassium 3.9 (3.4-5.1) mmol/L Chloride 100 (98-107) mmol/L Carbon Dioxide 30 (22-32) mmol/L BUN 12 (7-17) mg/dL Creatinine 0.51 L (0.52-1.04) mg/dL Estimated GFR > 60.0 (>60) mL/min BUN/Creatinine Ratio 23.5 H (6-22) Glucose 320 H (80-110) mg/dL Calcium 8.8 (8.4-10.2) mg/dL Total Bilirubin 1.2 (0.2-1.3) mg/dL AST 24 (14-36) IU/L ALT 18 (<35) IU/L Alkaline Phosphatase 84 (38-126) U/L Total Protein 6.0 L (6.3-8.2) g/dL Albumin 3.5 (3.5-5.0) g/dL Globulin 2.5 (1.7-4.1) g/dL Albumin/Globulin Ratio 1.4 (1.0-2.8) Urine Color Urine Appearance Urine pH (4.5-8.0) Ur Specific Orion (1.000-1.035) Urine Protein (Negative) Urine Glucose (UA) (Negative) g/dL Urine Ketones (NEGATIVE) Urine Occult Blood (Negative) Urine Nitrate (Negative) Urine Bilirubin (NEGATIVE) Urine Urobilinogen (0.2) E.U./dL Ur Leukocyte Esterase (NEGATIVE) Urine RBC (0-5/HPF) Urine WBC (0-5/HPF) Ur Squamous Epith Cells (0-5/HPF) Urine Bacteria (None) Ur Culture Indicated? SARS-CoV-2 (PCR) (Negative) Imaging Data CT scan - head: Radiologist's Impression: PROCEDURE: CT HEAD/BRAIN WO CON INDICATIONS: frequent falls TECHNIQUE: Noncontrast 4.5 mm thick angled axial sections acquired from the foramen magnum to the vertex, with coronal and sagittal reformats. For radiation dose reduction, the following was used: automated exposure control, adjustment of mA and/or kV according to patient size. COMPARISON: [facility], CT, CT HEAD/BRAIN WO CON, 11/22/2020, 19:19. [facility], CT, CT HEAD/BRAIN WO CON, 12/31/2020, 18:42. [facility], CT, CT HEAD/BRAIN WO CON, 06/08/2020, 13:37. FINDINGS: Image quality: Excellent. CSF spaces: Basal cisterns are patent. No extra-axial fluid collections. The ventricles are symmetric in size and shape. Brain: When compared with the prior study there is no significant change in the danced global cerebral volume loss and chronic microvascular ischemic change. No acute intracranial hemorrhage demonstrated. Cyr-white matter differentiation is grossly maintained, with no CT evidence of acute large territory infarct. Skull and face: Calvarium and visualized facial bones appear intact, without suspicious lesions. Sinuses: Visualized sinuses and mastoids are clear. IMPRESSION: No acute intracranial finding. Advanced global cerebral volume loss and chronic microvascular ischemic changes. Dictated by: Liang Valentin M.D. on 01/07/2021 at 19:02 CT scan - chest: Radiologist's Impression: PROCEDURE: CT CHEST WO CON INDICATIONS: known rib fractures TECHNIQUE: Noncontrast 5 mm thick sections acquired from the pulmonary apices to the posterior costophrenic angles. 1 mm lung window, 5 mm thick coronal and sagittal and 7 mm axial MIP reformats were then acquired. For radiation dose reduction, the following was used: automated exposure control, adjustment of mA and/or kV according to patient size. COMPARISON: [facility], CR, XR RIBS LT MIN 3V W CXR1V, 01/07/2021, 18:27. FINDINGS: There are fractures of the left 9th, 10th, 11th, and 12th ribs posteriorly. Each of the fractures is mildly displaced. The left 11th and 12th rib fractures are either new since the prior radiographic studies or radiographically occult due to their location inferiorly and posteriorly. There is a small left pleural effusion with overlying atelectasis. Remaining ribs and thoracic osseous structures intact. Normal thoracic vertebral body height and alignment. The right lung and pleural space are clear. Unenhanced mediastinal cardiac and vascular structures demonstrate no acute finding. There is coronary and aortic atherosclerosis. No thoracic lymphadenopathy identified. No acute finding in the included unenhanced upper abdomen. IMPRESSION: Acute mildly displaced fractures of left ribs 9-12. Degree of displacement at the 9th and 10th ribs has increased when compared with the rib radiographs obtained 12/31/2020. The 11th and 12th rib fractures have no definite radiographic correlate on the 12/31 or 01/07 examinations. Dictated by: Liang Valentin M.D. on 01/07/2021 at 19:07 Chest x-ray: Radiologist's Impression: PROCEDURE: XR RIBS LT MIN 3V W CXR1V INDICATIONS: rib fractures falls TECHNIQUE: 2 views of the left ribs were acquired, along with a single view chest. COMPARISON: [facility], CR, XR RIBS LT MIN 3V W CXR1V, 12/31/2020, 17:35. FINDINGS: Both the left 9th and 10th rib fractures have increased in displacement when compared with the prior study. No new rib fracture identified definitively. Thoracic vertebral body heights grossly maintained. There is some blunting of the left costophrenic angle which is likely a pleural effusion. No pneumothorax. No focal airspace opacity. IMPRESSION: Increased displacement of 9th and 10th rib fractures when compared with the recent prior study. Interval development of a small left pleural effusion. Dictated by: Liang Valentin M.D. on 01/07/2021 at 19:04 MDM Narrative Medical decision making narrative: The patient has contusion on left side from when she fell previously. Chest CT does show fractures of ribs 9 through 12 [address]. Head CT is negative. Blood work is overall reassuring no sign of UTI or other infection at this time. She fell 7 days ago and doing okay. Probably fell transitioning today. Encouraged wheelchair use with POA. At this time may return back to [facility] Discharge Plan Departure Patient Disposition: Home Clinical Impression: Fall, Fracture, rib Instructions: How to Prevent Falls Activity Restrictions/Additional Instructions: *You have been diagnosed with fall and known rib fracture *What to do: Read by through 12 are broken. Continue to use wheelchair. At this time blood work is reassuring no bladder infection. *Continue to take medications as directed Continue to take pain medication as directed *Follow up with your primary care provider in 2-3 days *Return to ER if you should have worsening falls, worsening confusion, fevers or any new, worsening or concerning symptoms Prescriptions: No Action magnesium hydroxide [Milk of Magnesia] 400 mg/5 mL suspension 30 ml PO DAILY PRN (Reason: constipation) Qty: 3000 RF: 3 bisacodyl 5 mg tablet 10 mg PO BEDTIME PRN (Reason: constipation) Qty: 30 RF: 3 acetaminophen 325 mg capsule 650 mg PO Q4H PRN (Reason: fever or pain) Qty: 30 RF: 3 divalproex 125 mg capsule, delayed rel sprinkle 125 mg PO ONCE Qty: 180 RF: 3 donepezil 10 mg tablet 10 mg PO BEDTIME Qty: 90 RF: 3 oxycodone 5 mg capsule 5 mg PO TID PRN (Reason: rib pain) Qty: 14 RF: 0 Referrals: Elvi Pendleton MD [Primary Care Provider] -
--- NOTE | 2021-01-07 18:30 | DI.RAD.S_ITS ---
PROCEDURE: XR RIBS LT MIN 3V W CXR1V INDICATIONS: rib fractures falls TECHNIQUE: 2 views of the left ribs were acquired, along with a single view chest. COMPARISON: [facility], , XR RIBS LT MIN 3V W CXR1V, 12/31/2020, 17:35. FINDINGS: Both the left 9th and 10th rib fractures have increased in displacement when compared with the prior study. No new rib fracture identified definitively. Thoracic vertebral body heights grossly maintained. There is some blunting of the left costophrenic angle which is likely a pleural effusion. No pneumothorax. No focal airspace opacity. IMPRESSION: Increased displacement of 9th and 10th rib fractures when compared with the recent prior study. Interval development of a small left pleural effusion. Dictated by: Liang Valentin M.D. on 01/07/2021 at 19:04 Approved by: Liang Valentin M.D. on 01/07/2021 at 19:06
--- NOTE | 2021-01-07 18:31 | DI.CT.S_ITS ---
PROCEDURE: CT HEAD/BRAIN WO CON INDICATIONS: frequent falls TECHNIQUE: Noncontrast 4.5 mm thick angled axial sections acquired from the foramen magnum to the vertex, with coronal and sagittal reformats. For radiation dose reduction, the following was used: automated exposure control, adjustment of mA and/or kV according to patient size. COMPARISON: [facility], CT, CT HEAD/BRAIN WO CON, 11/22/2020, 19:19. [facility], CT, CT HEAD/BRAIN WO CON, 12/31/2020, 18:42. [facility], CT, CT HEAD/BRAIN WO CON, 06/08/2020, 13:37. FINDINGS: Image quality: Excellent. CSF spaces: Basal cisterns are patent. No extra-axial fluid collections. The ventricles are symmetric in size and shape. Brain: When compared with the prior study there is no significant change in the danced global cerebral volume loss and chronic microvascular ischemic change. No acute intracranial hemorrhage demonstrated. Cyr-white matter differentiation is grossly maintained, with no CT evidence of acute large territory infarct. Skull and face: Calvarium and visualized facial bones appear intact, without suspicious lesions. Sinuses: Visualized sinuses and mastoids are clear. IMPRESSION: No acute intracranial finding. Advanced global cerebral volume loss and chronic microvascular ischemic changes. Dictated by: Liang Valentin M.D. on 01/07/2021 at 19:02 Approved by: Liang Valentin M.D. on 01/07/2021 at 19:03
--- NOTE | 2021-01-07 18:35 | DI.CT.S_ITS ---
PROCEDURE: CT CHEST WO CON INDICATIONS: known rib fractures TECHNIQUE: Noncontrast 5 mm thick sections acquired from the pulmonary apices to the posterior costophrenic angles. 1 mm lung window, 5 mm thick coronal and sagittal and 7 mm axial MIP reformats were then acquired. For radiation dose reduction, the following was used: automated exposure control, adjustment of mA and/or kV according to patient size. COMPARISON: [facility], CR, XR RIBS LT MIN 3V W CXR1V, 01/07/2021, 18:27. FINDINGS: There are fractures of the left 9th, 10th, 11th, and 12th ribs posteriorly. Each of the fractures is mildly displaced. The left 11th and 12th rib fractures are either new since the prior radiographic studies or radiographically occult due to their location inferiorly and posteriorly. There is a small left pleural effusion with overlying atelectasis. Remaining ribs and thoracic osseous structures intact. Normal thoracic vertebral body height and alignment. The right lung and pleural space are clear. Unenhanced mediastinal cardiac and vascular structures demonstrate no acute finding. There is coronary and aortic atherosclerosis. No thoracic lymphadenopathy identified. No acute finding in the included unenhanced upper abdomen. IMPRESSION: Acute mildly displaced fractures of left ribs 9-12. Degree of displacement at the 9th and 10th ribs has increased when compared with the rib radiographs obtained 12/31/2020. The 11th and 12th rib fractures have no definite radiographic correlate on the 12/31 or 01/07 examinations. Dictated by: Liang Valentin M.D. on 01/07/2021 at 19:07 Approved by: Liang Valentin M.D. on 01/07/2021 at 19:12
[2021-01-07 19:13] LABS: Add Manual Diff / Slide Review NO; Basophils Absolute Auto 0 /uL (0-100); Basophils Percent Auto 0.8 % (0-2); Eosinophils Absolute Auto 100 /uL (0-450); Eosinophils Percent Auto 2.3 % (2-4); Hematocrit 39.6 % (36-46); Hemoglobin 13.2 g/dL (12.0-16.0); Lymphocytes Absolute Auto 1400 /uL (1100-4500); Mean Corpuscular HGB Conc 33.3 % (30-36); Mean Corpuscular Hemoglobin 30.4 PG (26-34); Mean Corpuscular Volume 91.2 fL (80-100); Monocytes Absolute Auto 300 /uL (0-900); Monocytes Percent Auto 5.3 % (3-14); Neutrophils Absolute Auto 4400 /uL (1500-7000); Neutrophils Percent Auto 69.6 % (50-75); Platelet Count 317 X10^3/uL (150-400); Red Blood Cell Count 4.34 X10^6/uL (4.0-5.2); Red Cell Distribution Width 14.2 % (11.6-14.8); White Blood Cell Count 6.3 X10^3/uL (4.5-11.0)
[2021-01-07 19:15] VITALS: BP 159/71; PULSE 67; RESP 17; O2SAT 96
[2021-01-07 19:29] LABS: COVID19 -Nasal RAPID Negative (Negative)
[2021-01-07 19:32] LABS: RBC Urine None Seen (0-5/HPF)
[2021-01-07 19:33] LABS: Appearance Urine UA CLEAR; Bilirubin Urine UA NEGATIVE (NEGATIVE); Color Urine UA YELLOW; Glucose Urine UA 2+ g/dL (Negative); Ketones Urine UA NEGATIVE (NEGATIVE); Leukocyte Esterase Urine UA NEGATIVE (NEGATIVE); Nitrite Urine UA NEGATIVE (Negative); Occult Blood Urine UA NEGATIVE (Negative); Protein Urine UA NEGATIVE (Negative); Urobilinogen Urine UA 0.2 E.U./dL (0.2)
[2021-01-07 19:41] LABS: Bacteria Urine Few (2-10); Culture Indicated Urine Cult Not Indicated; Squamous Epithelial Cell Urine 1-5 /HPF (0-5/HPF); WBC Urine 1-5/HPF (0-5/HPF)
[2021-01-07 20:16] LABS: Alanine Aminotransferase 18 IU/L (<35); Albumin 3.5 g/dL (3.5-5.0); Albumin Globulin Ratio 1.4 (1.0-2.8); Alkaline Phosphatase 84 U/L (38-126); Aspartate Aminotransferase 24 IU/L (14-36); BUN Creatinine Ratio 23.5 (6-22); Bilirubin Total 1.2 mg/dL (0.2-1.3); Blood Urea Nitrogen 12 mg/dL (7-17); Calcium 8.8 mg/dL (8.4-10.2); Carbon Dioxide 30 mmol/L (22-32); Chloride 100 mmol/L (98-107); Estimated Glomerular Filt Rate > 60.0 mL/min (>60); Globulin 2.5 g/dL (1.7-4.1); Glucose 320 mg/dL (80-110); HEMOLYSIS < 15 (0-50); Potassium 3.9 mmol/L (3.4-5.1); Sodium 135 mmol/L (137-145)
[2021-01-07 20:20] VITALS: BP 158/74; PULSE 74; RESP 23; O2SAT 96
== END 2021-01-07 20:22 | disposition home or self-care (01) ==
PROVIDERS: Emergency Provider Emergency Medicine; PCP Internal Medicine
DX: S22.42XA Multiple fractures of ribs, left side, initial encounter for closed fracture (principal); S09.90XA Unspecified injury of head, initial encounter; R29.6 Repeated falls; W19.XXXA Unspecified fall, initial encounter; Z20.822 Contact with and (suspected) exposure to COVID-19
CPT/HCPCS: 36415; 70450; 71101; 71250; 80053; 81001; 85025; 87635; 93005; 93010; 99284; C9803

== ENCOUNTER 2021-01-12 19:20 | Emergency (ER) | payer MEDICARE, OTHER, SELFPAY ==
[2021-01-12 19:25] VITALS: BP 181/88; PULSE 81; RESP 16; TEMP 36.7; O2SAT 97
--- NOTE | 2021-01-12 19:38 | ED_ITS ---
HPI - Fall General Chief Complaint: Fall Stated Complaint: GLF Time Seen by Provider: 01/12/21 19:25 History of Present Illness HPI Narrative: 85-year-old female nonsmoker with history of dementia presents by EMS for evaluation of an unwitnessed ground level fall just prior to arrival. Matt santa does not take any blood thinners. She comes from a memory care center. She has no recall, which is baseline for her. She was recently seen for a fall in which she suffered some broken ribs on the left side. She has had no altered mental status per family. She has had no vomiting. She complains only of head pain over her occiput and some left thigh pain. She is otherwise well and free of complaint. She is activated as a modified trauma given her age and suspicion of injury. Related Data Previous Rx's Medication Instructions Recorded donepezil 10 mg tablet 10 mg PO BEDTIME #90 tab 05/24/20 divalproex 125 mg capsule,delayed 125 mg PO ONCE #180 cap 06/14/20 release sprinkle acetaminophen 325 mg capsule 650 mg PO Q4H PRN #30 cap 08/08/20 bisacodyl 5 mg tablet 10 mg PO BEDTIME PRN #30 tab 08/08/20 magnesium hydroxide 400 mg/5 mL 30 ml PO DAILY PRN #3000 ml 08/08/20 oral suspension (Milk of Magnesia) oxycodone 5 mg capsule 5 mg PO TID PRN #14 cap 12/31/20 Allergies Allergy/AdvReac Type Severity Reaction Status Date / Time No Known Drug Allergies Allergy Verified 12/31/20 17:05 Review of Systems Review of Systems Narrative: GENERAL: Denies chills, fatigue, malaise, fever, sweats. HEENT: Denies sinus pain, ear pain, sore throat, difficulty swallowing, dizziness. RESPIRATORY: Denies dyspnea, cough, wheezing, hemoptysis, sputum. CARDIOVASCULAR: Denies chest pain, palpitations, orthopnea, edema, GASTROINTESTINAL: Denies nausea, vomiting, abdominal pain, diarrhea, constipation, melena. : Denies dysuria, frequency, incontinence, hematuria, urinary retention. MUSCULOSKELETAL: see HPI SKIN: Denies rash, skin lesions, or other NEUROLOGIC: Denies weakness, headache, numbness, change in speech, confusion, seizures, incoordination. PSYCHIATRIC: No concerning psychosocial issues. 12 point review of systems is negative except for those stated above Patient History Medical History Advance care planning Anxiety (Unknown) Breast cancer (1979) Cataracts, bilateral (~1999) Chickenpox (Unknown) Dementia Depression (Unknown) Diabetes (Unknown) Fecal incontinence (2016) Fibromyalgia (Unknown) Generalized headaches (Unknown) Hoarseness Hypercholesterolemia (Unknown) Malaria (Unknown) Memory impairment (07/13/16) Memory loss (Unknown) Migraines (Unknown) Mumps (Unknown) Poor short term memory Stiff neck (09/10/17) Type 2 diabetes mellitus without complication, without long-term current use of insulin (09/10/17) Urinary incontinence (1999) Surgical History History of tonsillectomy Status post appendectomy Status post dilation and curettage Family History Father Heart disease Social History marital status: lives independently: Yes caregiver/support person: Yes education level: master's degree Smoking Status: Never smoker alcohol intake: current substance use type: does not use Smoking Status: Never smoker alcohol intake frequency: 0-2 drinks per day Substance Use Type: does not use Exam Narrative Exam Narrative: GENERAL: [85] year old patient appears stated age. Well- developed patient, in mild distress. Pleasantly confused, GCS 14 HEAD: Occipital hematoma, no bleeding or evidence of depressed skull fracture EYES: Pupils equal round and reactive. Extraocular motions intact. No scleral icterus. No injection or drainage. ENT: Nose without bleeding, purulent drainage. Throat without erythema, to nsillar hypertrophy or exudate. Airway patent. NECK: Trachea midline. Non tender CARDIOVASCULAR: Regular rate and rhythm without murmurs, gallops, or rubs. RESPIRATORY: Clear to auscultation. Breath sounds equal bilaterally. No wheezes, rales, or rhonchi. GASTROINTESTINAL: Abdomen soft, non-tender, nondistended. EXTREMITIES: Pain on palpation of left hip and left thigh on palpation. She does, however have excellent range of motion and no pain with axial loading.. BACK: Nontender without deformity or crepitance. No flank tenderness. NEURO: Awake and alert, CNII-XII grossly in tact SKIN: No rash or erythema of visible areas Initial Vital Signs Initial Vital Signs: Vital Signs Temperature 98.1 F 01/12/21 19:25 Pulse Rate 81 01/12/21 19:25 Respiratory Rate 16 01/12/21 19:25 Blood Pressure 181/88 H 01/12/21 19:25 Pulse Oximetry 97 01/12/21 19:25 Course Orders Ordered: ED Orders 01/12/21 19:42 CT head/brain wo con Stat 01/12/21 20:46 XR femur LT min 2V Stat XR pelvis 1-2V Stat Vital Signs Vital signs: Vital Signs - 8 hr 01/12/21 19:25 01/12/21 20:17 01/12/21 20:30 Temperature 98.1 F Pulse Rate 81 80 77 Respiratory Rate 16 Blood Pressure 181/88 H Pulse Oximetry 97 97 98 01/12/21 21:00 Temperature Pulse Rate 82 Respiratory Rate Blood Pressure Pulse Oximetry 98 MDM - Fall Imaging Data CT scan - head: Radiologist's Impression: [address] [id number] Scan ReportSigned Patient: Vickie Alston LMR#: [id number]: 5Acct:[id number]/Sex: 85 / FDate of Service: 01/12/21Loc: EDAccession Number: [id number] Procedure: CT head/brain wo con Ordering Provider: Wally Nieto D.O. PROCEDURE: CT HEAD/BRAIN WO CON INDICATIONS: fall with head injury TECHNIQUE: Noncontrast 4.5 mm thick angled axial sections acquired from the foramen magnum to the vertex, with coronal and sagittal reformats. For radiation dose reduction, the following was used: automated exposure control, adjustment of mA and/or kV according to patient size. COMPARISON: [facility], CT, CT HEAD/BRAIN WO CON, 01/07/2021, 18:36. FINDINGS: Image quality: Excellent. CSF spaces: Basal cisterns are patent. No extra-axial fluid collections. The lateral ventricles are diffusely enlarged, stable. 3rd and 4th ventricles remain midline. Brain: No intracranial bleeds or masses. There is moderate cerebral volume loss for age, with resultant ventricular and sulcal prominence. There are moderate periventricular and deep white matter chronic small vessel ischemic changes. There is intracranial internal carotid artery atherosclerosis. Skull and face: There is a soft tissue hematoma at the posterior vertex. No laceration or foreign body visible. No underlying fracture Calvarium and visualized facial bones appear otherwise intact, without suspicious lesions. Sinuses: Visualized sinuses and mastoids are clear. IMPRESSION: 1. No CT evidence of acute intracranial process. 2. Stable ventriculomegaly and moderate cortical volume loss. Consider normal- pressure hydrocephalus. 3. Moderate microvascular ischemic changes in the white matter. 4. Posterior vertex subcutaneous hematoma without underlying fracture or foreign body. Dictated by: Aniyah Gilbert M.D. on 01/12/2021 at 20:17 Approved by: Aniyah Gilbert M.D. on 01/12/2021 at 20:21 Extremity x-ray #1: Radiologist's Impression: [address] [id number] ReportSigned Patient: Vickie Alston LMR#: [id number]: 5Acct:[id number]/Sex: 85 / FDate of Service: 01/12/21Loc: EDAccession Number: [id number] Procedure: XR femur LT min 2V Ordering Provider: Wally Nieto D.O. PROCEDURE: XR FEMUR LT MIN 2V INDICATIONS: fall with pain TECHNIQUE: Two views of the femur were acquired. COMPARISON: None. FINDINGS: Bones: No fractures or dislocations. No suspicious bony lesions. Decreased mineralization. Decreased hip and knee joint space with axial migration of the femoral head. Soft tissues: No suspicious soft tissue calcifications or masses. IMPRESSION: 1. No visible fracture or dislocation. 2. Osteopenia. Dictated by: Aniyah Gilbert M.D. on 01/12/2021 at 21:30 Approved by: Aniyah Gilbert M.D. on 01/12/2021 at 21:32 MDM Narrative Medical decision making narrative: Images are all very reassuring. Though neisha holden did not have hip or thigh pain at the onset she developed this discomfort over the course of the visit. Physical exam amended, x-rays ordered, no significant findings. Patient stood up without pain and was able to ambulate at her baseline. Discharge Plan Departure Patient Disposition: Home Clinical Impression: Hematoma of occipital region of scalp Instructions: How to Prevent Falls Activity Restrictions/Additional Instructions: There is no evidence of an emergent or life threatening illness at this time, but follow up with your doctor in 1-2 days is recommended nonetheless to continue to rule out serious underlying causes of your symptoms. Please call the office for an appointment. Please return to the Emergency Department for any worsening or persistent symptoms. Please take medications as directed. Prescriptions: No Action magnesium hydroxide [Milk of Magnesia] 400 mg/5 mL suspension 30 ml PO DAILY PRN (Reason: constipation) Qty: 3000 RF: 3 bisacodyl 5 mg tablet 10 mg PO BEDTIME PRN (Reason: constipation) Qty: 30 RF: 3 acetaminophen 325 mg capsule 650 mg PO Q4H PRN (Reason: fever or pain) Qty: 30 RF: 3 divalproex 125 mg capsule, delayed rel sprinkle 125 mg PO ONCE Qty: 180 RF: 3 donepezil 10 mg tablet 10 mg PO BEDTIME Qty: 90 RF: 3 oxycodone 5 mg capsule 5 mg PO TID PRN (Reason: rib pain) Qty: 14 RF: 0 Referrals: Elvi Pendleton MD [Primary Care Provider] -
--- NOTE | 2021-01-12 19:42 | DI.CT.S_ITS ---
PROCEDURE: CT HEAD/BRAIN WO CON INDICATIONS: fall with head injury TECHNIQUE: Noncontrast 4.5 mm thick angled axial sections acquired from the foramen magnum to the vertex, with coronal and sagittal reformats. For radiation dose reduction, the following was used: automated exposure control, adjustment of mA and/or kV according to patient size. COMPARISON: [facility], CT, CT HEAD/BRAIN WO CON, 01/07/2021, 18:36. FINDINGS: Image quality: Excellent. CSF spaces: Basal cisterns are patent. No extra-axial fluid collections. The lateral ventricles are diffusely enlarged, stable. 3rd and 4th ventricles remain midline. Brain: No intracranial bleeds or masses. There is moderate cerebral volume loss for age, with resultant ventricular and sulcal prominence. There are moderate periventricular and deep white matter chronic small vessel ischemic changes. There is intracranial internal carotid artery atherosclerosis. Skull and face: There is a soft tissue hematoma at the posterior vertex. No laceration or foreign body visible. No underlying fracture Calvarium and visualized facial bones appear otherwise intact, without suspicious lesions. Sinuses: Visualized sinuses and mastoids are clear. IMPRESSION: 1. No CT evidence of acute intracranial process. 2. Stable ventriculomegaly and moderate cortical volume loss. Consider normal-pressure hydrocephalus. 3. Moderate microvascular ischemic changes in the white matter. 4. Posterior vertex subcutaneous hematoma without underlying fracture or foreign body. Dictated by: Aniyah Gilbert M.D. on 01/12/2021 at 20:17 Approved by: Aniyah Gilbert M.D. on 01/12/2021 at 20:21
[2021-01-12 20:17] VITALS: PULSE 80; O2SAT 97
[2021-01-12 20:30] VITALS: PULSE 77; O2SAT 98
--- NOTE | 2021-01-12 20:46 | DI.RAD.S_ITS ---
PROCEDURE: XR PELVIS 1-2V INDICATIONS: fall with left hip pain TECHNIQUE: One view(s) of the pelvis acquired. COMPARISON: None. FINDINGS: Bones: Decreased mineralization. No visible displaced fractures. Bony alignment is normal. The patient is slightly rotated. Soft tissues: Visualized bowel gas pattern is normal. No suspicious soft tissue calcifications. IMPRESSION: 1. No visible fractures, the bones are osteopenic and a nondisplaced occult fracture may be missed. If the patient cannot ambulate, CT or MRI may be useful for to detect an occult fracture. Dictated by: Aniyah Gilbert M.D. on 01/12/2021 at 21:32 Approved by: Aniyah Gilbert M.D. on 01/12/2021 at 21:34
--- NOTE | 2021-01-12 20:46 | DI.RAD.S_ITS ---
PROCEDURE: XR FEMUR LT MIN 2V INDICATIONS: fall with pain TECHNIQUE: Two views of the femur were acquired. COMPARISON: None. FINDINGS: Bones: No fractures or dislocations. No suspicious bony lesions. Decreased mineralization. Decreased hip and knee joint space with axial migration of the femoral head. Soft tissues: No suspicious soft tissue calcifications or masses. IMPRESSION: 1. No visible fracture or dislocation. 2. Osteopenia. Dictated by: Aniyah Gilbert M.D. on 01/12/2021 at 21:30 Approved by: Aniyah Gilbert M.D. on 01/12/2021 at 21:32
[2021-01-12 21:00] VITALS: PULSE 82; O2SAT 98
[2021-01-12 22:00] VITALS: BP 169/77; PULSE 72; O2SAT 100
== END 2021-01-12 22:02 | disposition home or self-care (01) ==
PROVIDERS: Emergency Provider Emergency Medicine; PCP Internal Medicine
DX: S00.03XA Contusion of scalp, initial encounter (principal); M79.652 Pain in left thigh; R41.0 Disorientation, unspecified; W19.XXXA Unspecified fall, initial encounter
CPT/HCPCS: 70450; 72170; 73552; 93005; 93010; 99284

== ENCOUNTER 2021-01-23 18:37 | Emergency (ER) | payer MEDICARE, OTHER, SELFPAY ==
[2021-01-23 18:40] VITALS: BP 114/55; PULSE 80; RESP 20; TEMP 36.4; O2SAT 97
--- NOTE | 2021-01-23 18:53 | PC.NURSE ---
pt forgetful. oriented to self and place. denies pain at this time. full ROM to all extremities and no pain to head or neck. no brusing or swelling noted
[2021-01-23 19:53] VITALS: BP 140/65; PULSE 79; O2SAT 97
[2021-01-23 20:00] VITALS: BP 123/60; PULSE 74; O2SAT 98
[2021-01-23 20:28] VITALS: PULSE 78; O2SAT 94
[2021-01-23 20:30] VITALS: BP 125/67
--- NOTE | 2021-01-23 20:45 | DI.RAD.S_ITS ---
PROCEDURE: XR CHEST 1V INDICATIONS: fall TECHNIQUE: One view of the chest was acquired. COMPARISON: [facility], CT, CT CERVICAL SPINE WO CON, 01/23/2021, 20:50. [facility], CR, CHEST 1 VIEW, 09/21/2011, 20:56. FINDINGS: Surgical changes and devices: None. Lungs and pleura: Lungs are clear. No substantial pleural effusions or pneumothorax. Mediastinum: Mediastinal contours appear normal. Heart size is normal. Bones and chest wall: No suspicious bony lesions. Overlying soft tissues appear unremarkable. IMPRESSION: Chest without acute cardiopulmonary abnormalities. No focal airspace disease. Small pleural effusions seen on comparison cervical spine CT is not appreciated on radiographic evaluation. Dictated by: Rufus Middleton M.D. on 01/23/2021 at 21:23 Approved by: Rufus Middleton M.D. on 01/23/2021 at 21:24
--- NOTE | 2021-01-23 20:46 | DI.CT.S_ITS ---
PROCEDURE: CT HEAD/BRAIN WO CON INDICATIONS: fall, dementia, lump on head. TECHNIQUE: Noncontrast 4.5 mm thick angled axial sections acquired from the foramen magnum to the vertex, with coronal and sagittal reformats. For radiation dose reduction, the following was used: automated exposure control, adjustment of mA and/or kV according to patient size. COMPARISON: [facility], CT, CT HEAD/BRAIN WO CON, 01/12/2021, 19:45. [facility], CT, CT HEAD/BRAIN WO CON, 01/07/2021, 18:36. FINDINGS: Image quality: Excellent. CSF spaces: Basal cisterns are patent. No extra-axial fluid collections. The ventricles are stable in size and shape. Stable prominence of the bilateral lateral ventricles. Brain: No intracranial bleeds or masses. There is moderate cerebral volume loss for age, with resultant ventricular and sulcal prominence. There are periventricular and deep white matter chronic small vessel ischemic changes. There is intracranial internal carotid artery atherosclerosis. Skull and face: Calvarium and visualized facial bones appear intact, without suspicious lesions. Posterior vertex scalp contusion/hematoma. Sinuses: Visualized sinuses and mastoids are clear. IMPRESSION: 1. CT head without acute intracranial abnormalities. 2. Posterior vertex scalp contusion/hematoma without underlying calvarial fracture 3. Stable appearance of ventriculomegaly and moderate cortical volume loss relative to age. Consider normal pressure hydrocephalus. 4. Stable appearance of chronic small vessel ischemic disease. Dictated by: Rufus Middleton M.D. on 01/23/2021 at 21:11 Approved by: Rufus Middleton M.D. on 01/23/2021 at 21:15
--- NOTE | 2021-01-23 20:46 | DI.CT.S_ITS ---
PROCEDURE: CT CERVICAL SPINE WO CON INDICATIONS: fall TECHNIQUE: Noncontrast 3 mm thick sections acquired from the skull base to the T4 level. Sagittal and coronal reformats were then constructed. For radiation dose reduction, the following was used: automated exposure control, adjustment of mA and/or kV according to patient size. COMPARISON: None. FINDINGS: Image quality: Excellent. Bones: No acute fractures or dislocations. No acute compression fractures of the vertebral bodies. Craniocervical junction is intact. C1-C2 relationship is preserved. Visualized superior ribs are intact. Multilevel cervical spondylosis. Soft tissues: Prevertebral soft tissues are normal in thickness. No paravertebral hematomas. No apical pneumothoraces. Small left pleural effusion. IMPRESSION: 1. CT cervical spine without acute fracture or malalignment. 2. Multilevel cervical spondylosis. 3. Small left pleural effusion. No adjacent rib fractures identified. Dictated by: Rufus Middleton M.D. on 01/23/2021 at 21:16 Approved by: Rufus Middleton M.D. on 01/23/2021 at 21:21
--- NOTE | 2021-01-23 20:47 | PC.NURSE ---
Per [facility] report and Patients friend Yamileth, Patient has been more confused than usual and falling quite frequently. Her friend has a calendar of all her falls and there are a ton for the last month. Discussed with Dr Martins
--- NOTE | 2021-01-23 20:55 | PC.NURSE ---
pt with swelling and some dry skin to LUE. Per family member at beside LUE with lymphedema and at baseline.
[2021-01-23 21:12] LABS: Alanine Aminotransferase 17 IU/L (<35); Albumin 3.6 g/dL (3.5-5.0); Albumin Globulin Ratio 1.4 (1.0-2.8); Alkaline Phosphatase 166 U/L (38-126); Aspartate Aminotransferase 32 IU/L (14-36); BUN Creatinine Ratio 21.5 (6-22); Bilirubin Total 1.9 mg/dL (0.2-1.3); Blood Urea Nitrogen 14 mg/dL (7-17); Calcium 8.7 mg/dL (8.4-10.2); Carbon Dioxide 27 mmol/L (22-32); Chloride 103 mmol/L (98-107); Estimated Glomerular Filt Rate > 60.0 mL/min (>60); Globulin 2.6 g/dL (1.7-4.1); Glucose 257 mg/dL (80-110); HEMOLYSIS 30 (0-50); Lipase 152 U/L (23-300); Potassium 3.7 mmol/L (3.4-5.1); Sodium 136 mmol/L (137-145); Total Protein 6.2 g/dL (6.3-8.2)
--- NOTE | 2021-01-23 21:14 | PC.NURSE ---
pt provided with water and daughter will continue to encourage pt take sips and educated on the need for UA
[2021-01-23 21:18] LABS: Add Manual Diff / Slide Review NO; Basophils Absolute Auto 0 /uL (0-100); Basophils Percent Auto 0.2 % (0-2); Eosinophils Absolute Auto 100 /uL (0-450); Eosinophils Percent Auto 1.7 % (2-4); Hematocrit 41.1 % (36-46); Hemoglobin 13.3 g/dL (12.0-16.0); Lymphocytes Absolute Auto 1900 /uL (1100-4500); Lymphocytes Percent Auto 25.2 % (25-40); Mean Corpuscular HGB Conc 32.4 % (30-36); Mean Corpuscular Volume 92.7 fL (80-100); Monocytes Absolute Auto 400 /uL (0-900); Monocytes Percent Auto 5.2 % (3-14); Neutrophils Absolute Auto 5200 /uL (1500-7000); Neutrophils Percent Auto 67.7 % (50-75); Platelet Count 312 X10^3/uL (150-400); Red Blood Cell Count 4.43 X10^6/uL (4.0-5.2); Red Cell Distribution Width 14.4 % (11.6-14.8); White Blood Cell Count 7.6 X10^3/uL (4.5-11.0)
--- NOTE | 2021-01-23 21:37 | ED_ITS ---
HPI - Fall General Chief Complaint: Trauma Stated Complaint: GLF Time Seen by Provider: 01/23/21 20:45 Source: EMS Mode of arrival: EMS History of Present Illness HPI Narrative: This is an 85-year-old female comes emergency department for gr ound level fall. This was unwitnessed fall heard by staff at patient's care facility. Patient may have hit her head today. She got stuck between a door jam. Patient has had multiple falls sometimes every other day or even more frequently. She has memory issues does not recall that she needs assistance getting out of and frequently falls transferring from her bed to wheelchair. Patient is not really ambulatory any longer. Patient herself does not recall the fall. She denies any pain currently. She is aware she is in an emergency department. She know she is in [place]. She really is unable to give much other history. She has friend at bedside who often helps with patient care. S he is not anticoagulated. She currently denies other symptoms. Related Data Previous Rx's Medication Instructions Recorded donepezil 10 mg tablet 10 mg PO BEDTIME #90 tab 05/24/20 divalproex 125 mg capsule,delayed 125 mg PO ONCE #180 cap 06/14/20 release sprinkle acetaminophen 325 mg capsule 650 mg PO Q4H PRN #30 cap 08/08/20 bisacodyl 5 mg tablet 10 mg PO BEDTIME PRN #30 tab 08/08/20 magnesium hydroxide 400 mg/5 mL 30 ml PO DAILY PRN #3000 ml 08/08/20 oral suspension (Milk of Magnesia) oxycodone 5 mg capsule 5 mg PO TID PRN #14 cap 12/31/20 cephalexin 500 mg capsule 500 mg PO Q6H 7 Days #28 cap 01/23/21 Allergies Allergy/AdvReac Type Severity Reaction Status Date / Time No Known Drug Allergies Allergy Verified 12/31/20 17:05 Review of Systems Review of Systems ROS Unobtainable: All systems reviewed & are unremarkable except as noted in HPI and below Patient History Medical History Advance care planning Anxiety (Unknown) Breast cancer (1979) Cataracts, bilateral (~1999) Chickenpox (Unknown) Dementia Depression (Unknown) Diabetes (Unknown) Fecal incontinence (2016) Fibromyalgia (Unknown) Generalized headaches (Unknown) Hoarseness Hypercholesterolemia (Unknown) Malaria (Unknown) Memory impairment (07/13/16) Memory loss (Unknown) Migraines (Unknown) Mumps (Unknown) Poor short term memory Stiff neck (09/10/17) Type 2 diabetes mellitus without complication, without long-term current use of insulin (09/10/17) Urinary incontinence (1999) Surgical History History of tonsillectomy Status post appendectomy Status post dilation and curettage Family History Father Heart disease Social History marital status: lives independently: Yes caregiver/support person: Yes education level: master's degree Smoking Status: Never smoker alcohol intake: current substance use type: does not use Smoking Status: Never smoker alcohol intake frequency: 0-2 drinks per day Substance Use Type: does not use Exam Narrative Exam Narrative: GEN: Patient appears in mild distress. HEAD: No evidence of trauma, no raccoon/Ag sign. NECK: Nontender, painless range of motion, trachea midline Positive Nexus criteria, there is no mid line tenderness, distracting injury, chronic but appears to be baseline altered mental status, no neuro deficit, recent EtOH. EYES: PERRLA, EOMI ENT: External inspection normal, trachea is midline, TM's are normal no hemotypanum, Nares are clear, no septal hematoma, no dental or oral injury, airway is normal and with normal occlusion, No bony tenderness RESP: Chest is nontender and has symmetric movement, no ecchymosis, breath so unds are normal no crackles, wheezes or rales CVS: Heart sounds are normal, no murmur noted, No JVD. ABG/GI: Nontender, soft, normal bowel sounds, no distention, no organomegaly, pelvic rock is negative NEURO: Alert, oriented to self and general location, patient does ask repetitive questions which per friend at bedside is her baseline, neuro is grossly intact, sensation and motor is normal all 4 extremities moving, cranial nerves II through XII are intact, GCS is 14 PSYCH: Normal mood and affect SKIN: Intact, warm and dry, no crepitus and without decubitus BACK: No CVA tenderness, no vertebral tenderness, no step-off's, no crepitus EXT: Atraumatic, hips are nontender, patient has full range of motion with passive movement with no tenderness. No pedal edema, normal color and temperature, normal range of motion of extremities with normal tendon exam, 2+ pulses in all four extremities. Patient is noted to have swelling of her left upper extremity which is chronic per her friend at bedside. She does have some mild erythema tracking with the left bicep and forearm that is nontender to touch. No warmth is truly appreciated. Initial Vital Signs Initial Vital Signs: Vital Signs Temperature 97.5 F L 01/23/21 18:40 Pulse Rate 80 01/23/21 18:40 Respiratory Rate 20 01/23/21 18:40 Blood Pressure 114/55 L 01/23/21 18:40 Pulse Oximetry 97 01/23/21 18:40 Scores GCS Ari coma scale eye opening: Spontaneous [place] coma scale verbal response: Confused Ari coma scale motor response: Obey commands Ari coma scale total score: 14 Course Orders Ordered: ED Orders 01/23/21 20:45 XR chest 1V Stat 01/23/21 20:46 CT cervical spine wo con Stat CT head/brain wo con Stat 01/23/21 20:50 Complete Blood Count AUTO DIFF Stat Comprehensive Metabolic Panel Stat Lipase Stat 01/23/21 21:53 US periph venous up extrem lt Stat Discontinued Medications Cefazolin Sodium (Cephalexin 250 Mg Prepack) 1 bottle MISC SEEINSTR ONE Stop: 01/23/21 22:51 Last Admin: 01/23/21 22:58 Dose: 500 mg Documented by: DONAVAN Vital Signs Vital signs: Vital Signs - 8 hr 01/23/21 23:05 Pulse Rate 75 Respiratory Rate 18 Blood Pressure 173/78 H Pulse Oximetry 96 MDM - Fall Lab Data Result diagrams: 01/23/21 20:50 01/23/21 20:50 Labs: Lab Results 01/23/21 01/23/21 Range/Units 20:50 20:50 WBC 7.6 (4.5-11.0) X10^3/uL RBC 4.43 (4.0-5.2) X10^6/uL Hgb 13.3 (12.0-16.0) g/dL Hct 41.1 (36-46) % MCV 92.7 (80-100) fL MCH 30.0 (26-34) PG MCHC 32.4 (30-36) % RDW 14.4 (11.6-14.8) % Plt Count 312 (150-400) X10^3/uL Neut % (Auto) 67.7 (50-75) % Lymph % (Auto) 25.2 (25-40) % [place] % (Auto) 5.2 (3-14) % Eos % (Auto) 1.7 L (2-4) % Baso % (Auto) 0.2 (0-2) % Neut # (Auto) 5200 (0262-0866) /uL Lymph # (Auto) 1900 (3564-9603) /uL [place] # (Auto) 400 (0-900) /uL Eos # (Auto) 100 (0-450) /uL Baso # (Auto) 0 (0-100) /uL Sodium 136 L (137-145) mmol/L Potassium 3.7 (3.4-5.1) mmol/L Chloride 103 (98-107) mmol/L Carbon Dioxide 27 (22-32) mmol/L BUN 14 (7-17) mg/dL Creatinine 0.65 (0.52-1.04) mg/dL Estimated GFR > 60.0 (>60) mL/min BUN/Creatinine Ratio 21.5 (6-22) Glucose 257 H (80-110) mg/dL Calcium 8.7 (8.4-10.2) mg/dL Total Bilirubin 1.9 H (0.2-1.3) mg/dL AST 32 (14-36) IU/L ALT 17 (<35) IU/L Alkaline Phosphatase 166 H (38-126) U/L Total Protein 6.2 L (6.3-8.2) g/dL Albumin 3.6 (3.5-5.0) g/dL Globulin 2.6 (1.7-4.1) g/dL Albumin/Globulin Ratio 1.4 (1.0-2.8) Lipase 152 (23-300) U/L Imaging Data CT scan - head: Radiologist's Impression: [address] [address] [address] Scan Report Signed Patient: Vickie Alston MR#: [id number] : 1935 Acct:[id number] Age/Sex: 85 / F Date of Service: 01/23/21 Loc: ED Accession Number: [id number] ?? Procedure: CT head/brain wo con Ordering Provider: Nicole Martins D.O. PROCEDURE:? CT HEAD/BRAIN WO CON ? INDICATIONS:? fall, dementia, lump on head. ? TECHNIQUE:? Noncontrast 4.5 mm thick angled axial sections acquired from the foramen magnum to the vertex, with coronal and sagittal reformats.? For radiation dose reduction, the following was used:? automated exposure control, adjustment of mA and/or kV according to patient size.? ? COMPARISON:? [facility], CT, CT HEAD/BRAIN WO CON, 01/12/2021, 19:45.? [facility], CT, CT HEAD/BRAIN WO CON, 01/07/2021, 18:36. ? FINDINGS:? Image quality:? Excellent.? ? CSF spaces:? Basal cisterns are patent.? No extra-axial fluid collections.? The ventricles are stable in size and shape.? Stable prominence of the bilateral lateral ventricles.? ? Brain:? No intracranial bleeds or masses.? There is moderate cerebral volume loss for age, with resultant ventricular and sulcal prominence.? There are periventricular and deep white matter chronic small vessel ischemic changes.? There is intracranial internal carotid artery atherosclerosis.? ? Skull and face:? Calvarium and visualized facial bones appear intact, without suspicious lesions.? Posterior vertex scalp contusion/hematoma. ? Sinuses:? Visualized sinuses and mastoids are clear.? ? IMPRESSION:? ? 1. CT head without acute intracranial abnormalities. ? 2. Posterior vertex scalp contusion/hematoma without underlying calvarial fracture ? 3. Stable appearance of ventriculomegaly and moderate cortical volume loss relative to age.? Consider normal pressure hydrocephalus. ? 4. Stable appearance of chronic small vessel ischemic disease.? ? ? Dictated by: Rufus Middleton M.D. on 01/23/2021 at 21:11 ? ? Approved by: Rufus Middleton M.D. on 01/23/2021 at 21:15?? CT - cervical spine: Radiologist's Impression: Launch?Image [address] [address] [address] Scan Report Signed Patient: Vickie Alston MR#: [id number] : 1935 Acct:[id number] Age/Sex: 85 / F Date of Service: 01/23/21 Loc: ED Accession Number: [id number] ?? Procedure: CT cervical spine wo con Ordering Provider: Nicole Martins D.O. PROCEDURE:? CT CERVICAL SPINE WO CON ? INDICATIONS:? fall ? TECHNIQUE:? Noncontrast 3 mm thick sections acquired from the skull base to the T4 level.? Sagittal and coronal reformats were then constructed.? For radiation dose reduction, the following was used:? automated exposure control, adjustment of mA and/or kV according to patient size.? ? COMPARISON:? None. ? FINDINGS:? Image quality:? Excellent.? ? Bones: No acute fractures or dislocations.? No acute compression fractures of the vertebral bodies. Craniocervical junction is intact. C1-C2 relationship is preserved. Visualized superior ribs are intact.? Multilevel cervical spondylosis.? ? Soft tissues:? Prevertebral soft tissues are normal in thickness.? No paravertebral hematomas.? No apical pneumothoraces.? Small left pleural effusion. ? ? IMPRESSION:? ? 1. CT cervical spine without acute fracture or malalignment. ? 2. Multilevel cervical spondylosis. ? 3. Small left pleural effusion.? No adjacent rib fractures identified.? Dictated by: Rufus Middleton M.D. on 01/23/2021 at 21:16 ? ? Approved by: Rufus Middleton M.D. on 01/23/2021 at 21:21?? Chest x-ray: Radiologist's Impression: [address] [address] XRay Report Signed Patient: Vickie Alston MR#: [id number] : 1935 Acct:[id number] Age/Sex: 85 / F Date of Service: 01/23/21 Loc: ED Accession Number: [id number] ?? Procedure: XR chest 1V Ordering Provider: Nicole Martins D.O. PROCEDURE:? XR CHEST 1V ? INDICATIONS:? fall ? TECHNIQUE:? One view of the chest was acquired.? ? COMPARISON:? [facility], CT, CT CERVICAL SPINE WO CON, 01/23/2021, 20:50.? [facility], CR, CHEST 1 VIEW, 09/21/2011, 20:56. ? FINDINGS:? ? Surgical changes and devices:? None.? ? Lungs and pleura:? Lungs are clear.? No substantial pleural effusions or pneumothorax.? ? Mediastinum:? Mediastinal contours appear normal.? Heart size is normal.? ? Bones and chest wall:? No suspicious bony lesions.? Overlying soft tissues appear unremarkable.? ? IMPRESSION:? ? Chest without acute cardiopulmonary abnormalities.? No focal airspace disease. ? Small pleural effusions seen on comparison cervical spine CT is not appreciated on radiographic evaluation. ? ? Dictated by: Rufus Middleton M.D. on 01/23/2021 at 21:23 ? ? Approved by: Rufus Middleton M.D. on 01/23/2021 at 21:24?? US - DVT: Radiologist's Impression: prelim is negative. MDM Narrative Medical decision making narrative: This is an 85-year-old female with unwitnessed ground level fall who has frequent falls likely secondary to forgetting to have assistance when trying to ambulate or transfer. Patient does not have any obvious fractures, head CT C-spine and chest x-ray were negative. She has chronic lymphedema in her left upper extremity but does appear to have some erythema which seems to be new according to her friend at bedside. Patient labs do not show major abnormalities. Patient was started on oral antibiotic after negative DVT ultrasound. Discharge Plan Departure Patient Disposition: Home Clinical Impression: Cellulitis of arm, left, Fall Instructions: DI for Cellulitis -- Adult Activity Restrictions/Additional Instructions: You appear to have a cellulitis of yourr left upper extremity. This is more likely to occur with chronic lymphedema. Take antibiotics daily until gone. [facility] was [facility] to [facility]. Please return for fevers, new or worsening redness, swelling or pain in your extremity, new changes to mental status, chest pain, shortness of breath, new neck or back pain, persistent vomiting, new weakness or other new or concerning symptoms. Prescriptions: New cephalexin 500 mg capsule 500 mg PO Q6H 7 Days Qty: 28 RF: 0 No Action magnesium hydroxide [Milk of Magnesia] 400 mg/5 mL suspension 30 ml PO DAILY PRN (Reason: constipation) Qty: 3000 RF: 3 bisacodyl 5 mg tablet 10 mg PO BEDTIME PRN (Reason: constipation) Qty: 30 RF: 3 acetaminophen 325 mg capsule 650 mg PO Q4H PRN (Reason: fever or pain) Qty: 30 RF: 3 divalproex 125 mg capsule, delayed rel sprinkle 125 mg PO ONCE Qty: 180 RF: 3 donepezil 10 mg tablet 10 mg PO BEDTIME Qty: 90 RF: 3 oxycodone 5 mg capsule 5 mg PO TID PRN (Reason: rib pain) Qty: 14 RF: 0
--- NOTE | 2021-01-23 21:53 | DI.US.S_ITS ---
PROCEDURE: US PERIPH VENOUS UP EXTREM LT INDICATIONS: CHRONIC LYMPHEDEMA. REDNESS. TECHNIQUE: Real-time imaging, as well as color and pulse Doppler interrogation, was performed of the left upper extremity deep veins from the inferior neck to the antecubital fossa. COMPARISON: None. FINDINGS: The internal jugular vein, visualized portions of the subclavian vein, axillary, and brachial veins are free of intraluminal thrombus. Where physically possible, the veins are normally compressible. Color and pulse Doppler demonstrate normal intraluminal flow, with expected phasicity and pulsatility. Additional scanning of the cephalic and basilic veins of the superficial system demonstrate normal compressibility, without thrombus. IMPRESSION: No evidence of deep vein thrombosis involving the left upper extremity. Dictated by: Maryam Riojas MD, PhD on 01/24/2021 at 8:14 Approved by: Maryam Riojas MD, PhD on 01/24/2021 at 8:14
[2021-01-23] MEDS: cephALEXin 250 MG PREPACK 1 BOTTLE MISC (22:58)
[2021-01-23 23:05] VITALS: BP 173/78; PULSE 75; RESP 18; O2SAT 96
== END 2021-01-23 23:06 | disposition home or self-care (01) ==
PROVIDERS: Emergency Provider Emergency Medicine
DX: L03.114 Cellulitis of left upper limb (principal); S09.90XA Unspecified injury of head, initial encounter; R29.6 Repeated falls; W19.XXXA Unspecified fall, initial encounter
CPT/HCPCS: 36415; 70450; 71045; 72125; 80053; 83690; 85025; 93971; 99284

== ENCOUNTER 2021-02-22 09:07 | Emergency (ER) | payer MEDICARE, OTHER, SELFPAY ==
[2021-02-22 09:10] VITALS: BP 130/69; PULSE 72; RESP 15; TEMP 36.4; O2SAT 100
--- NOTE | 2021-02-22 09:15 | ED_ITS ---
HPI - Fall General Chief Complaint: Fall Stated Complaint: GLF Time Seen by Provider: 02/22/21 09:10 History of Present Illness HPI Narrative: Patient is a 85-year-old female with history of breast cancer, dementia, malaria, diabetes presenting today from [facility] after ground level fall. She apparently tripped hit her head on the right side no loss of consciousness she is not on any anti-platelet or anticoagulation medication. She is also complaining of left hip pain. She overall is a poor historian. She does have left arm swelling previously had cellulitis. In January she had ultrasound placed on antibiotics. The notes do said that she has chronic left arm swelling does not appear to be new. She is here frequently for fall Related Data Previous Rx's Medication Instructions Recorded donepezil 10 mg tablet 10 mg PO BEDTIME #90 tab 05/24/20 divalproex 125 mg capsule,delayed 125 mg PO ONCE #180 cap 06/14/20 release sprinkle acetaminophen 325 mg capsule 650 mg PO Q4H PRN #30 cap 08/08/20 bisacodyl 5 mg tablet 10 mg PO BEDTIME PRN #30 tab 08/08/20 magnesium hydroxide 400 mg/5 mL 30 ml PO DAILY PRN #3000 ml 08/08/20 oral suspension (Milk of Magnesia) oxycodone 5 mg capsule 5 mg PO TID PRN #14 cap 12/31/20 Allergies Allergy/AdvReac Type Severity Reaction Status Date / Time No Known Drug Allergies Allergy Verified 02/22/21 09:13 Review of Systems Review of Systems ROS Unobtainable: Unobtainable due to medical condition Patient History Medical History Advance care planning Anxiety (Unknown) Breast cancer (1979) Cataracts, bilateral (~1999) Chickenpox (Unknown) Dementia Depression (Unknown) Diabetes (Unknown) Fecal incontinence (2015) Fibromyalgia (Unknown) Generalized headaches (Unknown) Hoarseness Hypercholesterolemia (Unknown) Malaria (Unknown) Memory impairment (07/13/16) Memory loss (Unknown) Migraines (Unknown) Mumps (Unknown) Poor short term memory Stiff neck (09/10/17) Type 2 diabetes mellitus without complication, without long-term current use of insulin (09/10/17) Urinary incontinence (1999) Surgical History History of tonsillectomy Status post appendectomy Status post dilation and curettage Family History Father Heart disease Social History marital status: lives independently: Yes caregiver/support person: Yes education level: master's degree Smoking Status: Never smoker alcohol intake: current substance use type: does not use Smoking Status: Never smoker alcohol intake frequency: 0-2 drinks per day Substance Use Type: does not use Exam Initial Vital Signs Initial Vital Signs: Vital Signs Temperature 97.5 F L 02/22/21 09:10 Pulse Rate 72 02/22/21 09:10 Respiratory Rate 15 02/22/21 09:10 Blood Pressure 130/69 02/22/21 09:10 Pulse Oximetry 100 02/22/21 09:10 GENERAL: Alert 85-year-old female pleasantly confused HEENT: Head contusion right parietal area, pupils reactive, face symmetric, moist mucous membranes NECK: The vertebral tenderness no step-off full range of motion CARDIOVASCULAR: Regular rate and rhythm without murmurs, rubs or gallops. RESPIRATORY: Breath sounds equal bilaterally, no wheezes rales or rhonchi. ABDOMEN: Soft, nontender. Normoactive bowel sounds all 4 quadrants. No guarding or rebound. EXTREMITIES: Normal range of motion, no clubbing or edema. Neurovascularly intact. Left arm on erythematous NEUROLOGICAL: Alert and oriented x1. Normal speech moving all extremities SKIN: Warm, dry, no laceration, no petechiae, no rashes or lesions. Course Orders Ordered: ED Orders 02/22/21 09:23 CT cervical spine wo con Stat CT head/brain wo con Stat XR hip w pel if done LT 2V Stat Discontinued Medications Acetaminophen (Acetaminophen 325 Mg Tablet) 650 mg PO NOW ONE Stop: 02/22/21 10:02 Last Admin: 02/22/21 10:06 Dose: 650 mg Documented by: Vital Signs Vital signs: Vital Signs - 8 hr 02/22/21 09:10 Temperature 97.5 F L Pulse Rate 72 Respiratory Rate 15 Blood Pressure 130/69 Pulse Oximetry 100 MDM - Fall Imaging Data CT scan - head: Radiologist's Impression: PROCEDURE:? CT HEAD/BRAIN WO CON ? INDICATIONS:? fall right head contusion ? TECHNIQUE:? Noncontrast 4.5 mm thick angled axial sections acquired from the foramen magnum to the vertex, with coronal and sagittal reformats.? For radiation dose reduction, the following was used:? automated exposure control, adjustment of mA and/or kV according to patient size.? ? COMPARISON:? [facility], CT, CT HEAD/BRAIN WO CON, 11/22/2020, 19:19.? [facility], CT, CT HEAD/BRAIN WO CON, 12/31/2020, 18:42.? [facility], CT, CT HEAD/BRAIN WO CON, 01/12/2021, 19:45.? [facility], CT, CT CERVICAL SPINE WO CON, 02/22/2021, 9:29.? [facility], CR, XR HIP W PEL IF DONE LT 2V, 02/22/2021, 9:25.? [facility], CT, CT HEAD/BRAIN WO CON, 01/23/2021, 20:50. ? FINDINGS:? Image quality:? Excellent.? ? CSF spaces:? Basal cisterns are patent.? No extra-axial fluid collections.? The ventricles are prominent and are more prominent than would be expected, given the degree of sulcal atrophy. ? Brain:? No intracranial bleeds or masses.? There is cerebral volume loss for age, with resultant ventricular and sulcal prominence.? There are periventricular and deep white matter chronic small vessel ischemic changes.? There is intracranial internal carotid artery atherosclerosis.? ? Skull and face:? There is a mild scalp hematoma seen involving the right occipital region.? No underlying calvarial fracture can be seen.? Calvarium and visualized facial bones appear intact, without suspicious lesions.? ? Sinuses:? Visualized sinuses and mastoids are clear.? ? IMPRESSION:? Right scalp hematoma, without an associated fracture or associated intracranial hemorrhage. ? No acute intracranial process is seen.? ? Stable prominent lateral ventricles are again seen.? Please consider normal pressure hydrocephalus. ? Note is made of age-appropriate brain parenchymal volume loss and chronic small vessel ischemic changes. ? ? Dictated by: Kyrie Kirk M.D. on 02/22/2021 at 8:42 ? ? Approved by: Kyrie Kirk M.D. on 02/22/2021 at 8:44 ? CT - cervical spine: Radiologist's Impression: PROCEDURE:? CT CERVICAL SPINE WO CON ? INDICATIONS:? fall ? TECHNIQUE:? Noncontrast 3 mm thick sections acquired from the skull base to the T4 level.? Sagittal and coronal reformats were then constructed.? For radiation dose reduction, the following was used:? automated exposure control, adjustment of mA and/or kV according to patient size.? ? COMPARISON:? [facility], CT, CT HEAD/BRAIN WO CON, 02/22/2021, 9:29.? [facility], CR, XR HIP W PEL IF DONE LT 2V, 02/22/2021, 9:25.? [facility], CT, CT CERVICAL SPINE WO CON, 01/23/2021, 20:50. ? FINDINGS:? Image quality:? Excellent.? ? Bones:? No fractures or dislocations.? Visualized superior ribs are intact.? ? Focal degenerative change is seen involving the C1-C2 interface anteriorly.? Focal moderate disc space narrowing is seen at C4-C5.? Posteriorly directed endplate osteophytes are seen at this level.? Bridging anterior osteophytes are seen at C6-C7.? Milder degenerative changes are seen elsewhere.? ? Soft tissues:? Prevertebral soft tissues are normal in thickness.? No paravert ebral hematomas.? No apical pneumothoraces.? The previously seen left-sided pleural effusion has resolved. ? ? IMPRESSION:? Negative for fracture. ? Degenerative changes are seen. ? Resolution of the previously seen left-sided pleural effusion. ? ? ? Dictated by: Kyrie Kirk M.D. on 02/22/2021 at 8:46 ? ? Extremity x-ray #1: Radiologist's Impression: PROCEDURE:? XR HIP W PEL IF DONE LT 2V ? INDICATIONS:? fall pain ? TECHNIQUE:? AP pelvis with lateral view(s) of the left hip(s).? ? COMPARISON:? [facility], CR, XR PELVIS 1-2V, 01/12/2021, 21:02.? [facility], CR, XR FEMUR LT MIN 2V, 01/12/2021, 21:02.? [facility], CT, CT HEAD/BRAIN WO CON, 02/22/2021, 9:29.? [facility], CT, CT CERVICAL SPINE WO CON, 02/22/2021, 9:29. ? FINDINGS:? ? Bones:? No fractures or dislocations.? Pelvic ring appears intact.? No suspicious bony lesions.? ? Degenerative changes and osteopenia can be seen throughout. ? Soft tissues:? The visualized bowel gas pattern is normal.? No suspicious soft tissue calcifications.? ? ? IMPRESSION:? ? No displaced fractures are seen on these plain films.? ? If there is focal tenderness, or other clinical concern for a fracture not seen on these images in this patient with a given history of trauma, please consider a dedicated CT or a short-term followup plain film series (in 1-2 weeks) for further evaluation.? ? Degenerative changes and osteopenia are noted. ? ? ? Dictated by: Kyrie Kirk M.D. on 02/22/2021 at 8:45 MDM Narrative Medical decision making narrative: The patient falls frequently. No sign of obvious injury today. DPOA at bedside, at baseline. Agrees with no further workup. Patient is able to put both legs on the wall without any difficulty. She was assisted back into the car and went back to [facility]. Discharge Plan Departure Patient Disposition: Home Clinical Impression: Closed head injury, Contusion of hip, left Instructions: How to Prevent Falls, Closed Head Injury Activity Restrictions/Additional Instructions: *You have been diagnosed with closed head injury left hip contusion *What to do: Try to use wheelchair or walker to help avoid falls. May ice 20- 30 minutes at a time to help with pain. *Continue to take medications as directed Tylenol as needed painful *Follow up with your primary care provider in 2-3 days *Return to ER if you should have increased any falls, increasing confusion,or any new, worsening or concerning symptoms Prescriptions: No Action magnesium hydroxide [Milk of Magnesia] 400 mg/5 mL suspension 30 ml PO DAILY PRN (Reason: constipation) Qty: 3000 RF: 3 bisacodyl 5 mg tablet 10 mg PO BEDTIME PRN (Reason: constipation) Qty: 30 RF: 3 acetaminophen 325 mg capsule 650 mg PO Q4H PRN (Reason: fever or pain) Qty: 30 RF: 3 divalproex 125 mg capsule, delayed rel sprinkle 125 mg PO ONCE Qty: 180 RF: 3 donepezil 10 mg tablet 10 mg PO BEDTIME Qty: 90 RF: 3 oxycodone 5 mg capsule 5 mg PO TID PRN (Reason: rib pain) Qty: 14 RF: 0
--- NOTE | 2021-02-22 09:23 | DI.CT.S_ITS ---
PROCEDURE: CT HEAD/BRAIN WO CON INDICATIONS: fall right head contusion TECHNIQUE: Noncontrast 4.5 mm thick angled axial sections acquired from the foramen magnum to the vertex, with coronal and sagittal reformats. For radiation dose reduction, the following was used: automated exposure control, adjustment of mA and/or kV according to patient size. COMPARISON: [facility], CT, CT HEAD/BRAIN WO CON, 11/22/2020, 19:19. [facility], CT, CT HEAD/BRAIN WO CON, 12/31/2020, 18:42. [facility], CT, CT HEAD/BRAIN WO CON, 01/12/2021, 19:45. [facility], CT, CT CERVICAL SPINE WO CON, 02/22/2021, 9:29. [facility], CR, XR HIP W PEL IF DONE LT 2V, 02/22/2021, 9:25. [facility], CT, CT HEAD/BRAIN WO CON, 01/23/2021, 20:50. FINDINGS: Image quality: Excellent. CSF spaces: Basal cisterns are patent. No extra-axial fluid collections. The ventricles are prominent and are more prominent than would be expected, given the degree of sulcal atrophy. Brain: No intracranial bleeds or masses. There is cerebral volume loss for age, with resultant ventricular and sulcal prominence. There are periventricular and deep white matter chronic small vessel ischemic changes. There is intracranial internal carotid artery atherosclerosis. Skull and face: There is a mild scalp hematoma seen involving the right occipital region. No underlying calvarial fracture can be seen. Calvarium and visualized facial bones appear intact, without suspicious lesions. Sinuses: Visualized sinuses and mastoids are clear. IMPRESSION: Right scalp hematoma, without an associated fracture or associated intracranial hemorrhage. No acute intracranial process is seen. Stable prominent lateral ventricles are again seen. Please consider normal pressure hydrocephalus. Note is made of age-appropriate brain parenchymal volume loss and chronic small vessel ischemic changes. Dictated by: Kyrie Kirk M.D. on 02/22/2021 at 8:42 Approved by: Kyrie Kirk M.D. on 02/22/2021 at 8:44
--- NOTE | 2021-02-22 09:23 | DI.RAD.S_ITS ---
PROCEDURE: XR HIP W PEL IF DONE LT 2V INDICATIONS: fall pain TECHNIQUE: AP pelvis with lateral view(s) of the left hip(s). COMPARISON: [facility], CR, XR PELVIS 1-2V, 01/12/2021, 21:02. [facility], CR, XR FEMUR LT MIN 2V, 01/12/2021, 21:02. [facility], CT, CT HEAD/BRAIN WO CON, 02/22/2021, 9:29. [facility], CT, CT CERVICAL SPINE WO CON, 02/22/2021, 9:29. FINDINGS: Bones: No fractures or dislocations. Pelvic ring appears intact. No suspicious bony lesions. Degenerative changes and osteopenia can be seen throughout. Soft tissues: The visualized bowel gas pattern is normal. No suspicious soft tissue calcifications. IMPRESSION: No displaced fractures are seen on these plain films. If there is focal tenderness, or other clinical concern for a fracture not seen on these images in this patient with a given history of trauma, please consider a dedicated CT or a short-term followup plain film series (in 1-2 weeks) for further evaluation. Degenerative changes and osteopenia are noted. Dictated by: Kyrie Kirk M.D. on 02/22/2021 at 8:45 Approved by: Kyrie Kirk M.D. on 02/22/2021 at 8:46
--- NOTE | 2021-02-22 09:28 | DI.CT.S_ITS ---
PROCEDURE: CT CERVICAL SPINE WO CON INDICATIONS: fall TECHNIQUE: Noncontrast 3 mm thick sections acquired from the skull base to the T4 level. Sagittal and coronal reformats were then constructed. For radiation dose reduction, the following was used: automated exposure control, adjustment of mA and/or kV according to patient size. COMPARISON: [facility], CT, CT HEAD/BRAIN WO CON, 02/22/2021, 9:29. [facility], CR, XR HIP W PEL IF DONE LT 2V, 02/22/2021, 9:25. [facility], CT, CT CERVICAL SPINE WO CON, 01/23/2021, 20:50. FINDINGS: Image quality: Excellent. Bones: No fractures or dislocations. Visualized superior ribs are intact. Focal degenerative change is seen involving the C1-C2 interface anteriorly. Focal moderate disc space narrowing is seen at C4-C5. Posteriorly directed endplate osteophytes are seen at this level. Bridging anterior osteophytes are seen at C6-C7. Milder degenerative changes are seen elsewhere. Soft tissues: Prevertebral soft tissues are normal in thickness. No paravertebral hematomas. No apical pneumothoraces. The previously seen left-sided pleural effusion has resolved. IMPRESSION: Negative for fracture. Degenerative changes are seen. Resolution of the previously seen left-sided pleural effusion. Dictated by: Kyrie Kirk M.D. on 02/22/2021 at 8:46 Approved by: Kyrie Kirk M.D. on 02/22/2021 at 8:48
[2021-02-22] MEDS: ACETAMINOPHEN 325 MG TABLET 650 MG PO (10:06)
== END 2021-02-22 10:16 | disposition home or self-care (01) ==
PROVIDERS: Emergency Provider Emergency Medicine
DX: S09.90XA Unspecified injury of head, initial encounter (principal); M25.552 Pain in left hip; W19.XXXA Unspecified fall, initial encounter
CPT/HCPCS: 70450; 72125; 73502; 99284

== ENCOUNTER 2021-02-23 05:44 | Emergency (ER) | payer MEDICARE, OTHER, SELFPAY ==
[2021-02-23 05:51] VITALS: BP 164/74; PULSE 83; RESP 22; TEMP 36.6; O2SAT 98; BMI 21.4
--- NOTE | 2021-02-23 05:54 | ED_ITS ---
HPI - Fall General Chief Complaint: Fall Stated Complaint: GLF Time Seen by Provider: 02/23/21 05:52 History of Present Illness HPI Narrative: Patient is a 85-year-old female with history of breast cancer, dementia, malaria, diabetes presenting today from [facility] after ground level fall. She presents by EMS after staff witnessed her fall and strike the back of her head. She had apparently been refusing to use her walker. She was seen yesterday for the same and has frequent visits for the same. She is otherwise at her baseline and is here for evaluation of a possible head injury. She is a terrible historian and does not contribute any to the exam. The same medics brought her today that brought her yesterday and state that she is otherwise at her baseline. She does have known chronic swelling of her left upper extremity which is unchanged. She is otherwise at baseline. Related Data Previous Rx's Medication Instructions Recorded donepezil 10 mg tablet 10 mg PO BEDTIME #90 tab 05/24/20 divalproex 125 mg capsule,delayed 125 mg PO ONCE #180 cap 06/14/20 release sprinkle acetaminophen 325 mg capsule 650 mg PO Q4H PRN #30 cap 08/08/20 bisacodyl 5 mg tablet 10 mg PO BEDTIME PRN #30 tab 08/08/20 magnesium hydroxide 400 mg/5 mL 30 ml PO DAILY PRN #3000 ml 08/08/20 oral suspension (Milk of Magnesia) oxycodone 5 mg capsule 5 mg PO TID PRN #14 cap 12/31/20 Allergies Allergy/AdvReac Type Severity Reaction Status Date / Time No Known Drug Allergies Allergy Verified 02/22/21 09:13 Review of Systems Review of Systems ROS Unobtainable: Unobtainable due to mental status/LOC Patient History Medical History Advance care planning Anxiety (Unknown) Breast cancer (1979) Cataracts, bilateral (~1999) Chickenpox (Unknown) Dementia Depression (Unknown) Diabetes (Unknown) Fecal incontinence (2016) Fibromyalgia (Unknown) Generalized headaches (Unknown) Hoarseness Hypercholesterolemia (Unknown) Malaria (Unknown) Memory impairment (07/13/16) Memory loss (Unknown) Migraines (Unknown) Mumps (Unknown) Poor short term memory Stiff neck (09/10/17) Type 2 diabetes mellitus without complication, without long-term current use of insulin (09/10/17) Urinary incontinence (1999) Surgical History History of tonsillectomy Status post appendectomy Status post dilation and curettage Family History Father Heart disease Social History marital status: lives independently: Yes caregiver/support person: Yes education level: master's degree Smoking Status: Never smoker alcohol intake: current substance use type: does not use Smoking Status: Never smoker alcohol intake frequency: 0-2 drinks per day Substance Use Type: does not use Exam Narrative Exam Narrative: GENERAL: [85] year old patient appears stated age. Resting comfortably, confused, but at baseline HEAD: Tender to palpation on the occiput, no obvious swelling, hematoma, contusion abrasion or evidence of depressed skull fracture EYES: Pupils equal round and reactive. No hyphema Extraocular motions intact. No scleral icterus. No injection or drainage. ENT: Nose without bleeding, purulent drainage. Throat without erythema, tonsillar hypertrophy or exudate. Airway patent. NECK: Trachea midline. Non tender, no step-offs, crepitance. CARDIOVASCULAR: Regular rate and rhythm without murmurs, gallops, or rubs. RESPIRATORY: Clear to auscultation. Breath sounds equal bilaterally. No wheezes, rales, or rhonchi. GASTROINTESTINAL: Abdomen soft, non-tender, nondistended. EXTREMITIES: Noted left upper extremity swelling, absent of any tenderness, no erythema, warmth or fluctuance BACK: Nontender without deformity or crepitance. No flank tenderness. NEURO: AOx3. SKIN: No rash or erythema of visible areas Initial Vital Signs Initial Vital Signs: Vital Signs Temperature 97.8 F 02/23/21 05:51 Pulse Rate 83 02/23/21 05:51 Respiratory Rate 22 02/23/21 05:51 Blood Pressure 164/74 H 02/23/21 05:51 Pulse Oximetry 98 02/23/21 05:51 Course Orders Ordered: ED Orders 02/23/21 05:55 CT head/brain wo con Stat Vital Signs Vital signs: Vital Signs - 8 hr 02/23/21 05:51 Temperature 97.8 F Pulse Rate 83 Respiratory Rate 22 Blood Pressure 164/74 H Pulse Oximetry 98 Discharge Plan Departure Patient Disposition: Home Clinical Impression: Contusion of scalp Qualifiers: Encounter type: subsequent encounter Qualified Code(s): S00.03XD - Contusion of scalp, subsequent encounter Contusion of left hip Qualifiers: Encounter type: initial encounter Qualified Code(s): S70.02XA - Contusion of left hip, initial encounter Instructions: How to Prevent Falls Activity Restrictions/Additional Instructions: *You have been diagnosed with [fall with scalp contusion, very reassuring physical exam and CT scan *What to do: *Please continue to take your regular medications as directed. *Please follow up with your primary care provider in 2-3 days, call for an appointment. Let them know you were seen in the Emergency Department and that we ask that you be seen in follow up. We will electronically transmit a record of today's note if your PCP is in our system *If you do not have a primary care provider please contact the [facility] Resource line at [phone]. They will ask some questions about your medical history and help get you set up with a doctor in the community. *Return to Emergency Department if you should have any new, worsening or concerning symptoms, such as [fever greater than 101 F, shaking chills, worsening pain, persistent vomiting or other bothersome symptoms] Prescriptions: No Action magnesium hydroxide [Milk of Magnesia] 400 mg/5 mL suspension 30 ml PO DAILY PRN (Reason: constipation) Qty: 3000 RF: 3 bisacodyl 5 mg tablet 10 mg PO BEDTIME PRN (Reason: constipation) Qty: 30 RF: 3 acetaminophen 325 mg capsule 650 mg PO Q4H PRN (Reason: fever or pain) Qty: 30 RF: 3 divalproex 125 mg capsule, delayed rel sprinkle 125 mg PO ONCE Qty: 180 RF: 3 donepezil 10 mg tablet 10 mg PO BEDTIME Qty: 90 RF: 3 oxycodone 5 mg capsule 5 mg PO TID PRN (Reason: rib pain) Qty: 14 RF: 0
--- NOTE | 2021-02-23 05:55 | DI.CT.S_ITS ---
PROCEDURE: CT HEAD/BRAIN WO CON INDICATIONS: fall with head injury TECHNIQUE: Noncontrast 4.5 mm thick angled axial sections acquired from the foramen magnum to the vertex, with coronal and sagittal reformats. For radiation dose reduction, the following was used: automated exposure control, adjustment of mA and/or kV according to patient size. COMPARISON: None. FINDINGS: Image quality: Excellent. CSF spaces: Basal cisterns are patent. No extra-axial fluid collections. The ventricles are symmetric in size and shape. Brain: No intracranial bleeds or masses. There is cerebral volume loss for age, with resultant ventricular and sulcal prominence. There are periventricular and deep white matter chronic small vessel ischemic changes. There is intracranial internal carotid artery atherosclerosis. Skull and face: Calvarium and visualized facial bones appear intact, without suspicious lesions. Right occipital-parietal scalp contusion. Sinuses: Visualized sinuses and mastoids are clear. IMPRESSION: No acute intracranial disease process. Dictated by: Maryam Riojas MD, PhD on 02/23/2021 at 7:21 Approved by: Maryam Riojas MD, PhD on 02/23/2021 at 7:24
[2021-02-23 07:11] VITALS: BP 168/80; PULSE 90; RESP 18; O2SAT 95
== END 2021-02-23 07:41 | disposition home or self-care (01) ==
PROVIDERS: Emergency Provider Emergency Medicine
DX: S00.03XA Contusion of scalp, initial encounter (principal); S70.02XA Contusion of left hip, initial encounter; W19.XXXA Unspecified fall, initial encounter
CPT/HCPCS: 70450; 99284

== ENCOUNTER 2021-03-18 07:24 | Emergency (ER) | payer MEDICARE, OTHER, SELFPAY ==
[2021-03-18 07:24] VITALS: BP 124/86; PULSE 53; RESP 18; TEMP 36.1; O2SAT 99; BMI 21.3
[2021-03-18 07:30] VITALS: BP 124/86; PULSE 61; RESP 18; O2SAT 94
--- NOTE | 2021-03-18 07:37 | DI.CT.S_ITS ---
PROCEDURE: CT HEAD/BRAIN WO CON INDICATIONS: Fall. Head injury. No anticoagulation. TECHNIQUE: Noncontrast 4.5 mm thick angled axial sections acquired from the foramen magnum to the vertex, with coronal and sagittal reformats. For radiation dose reduction, the following was used: automated exposure control, adjustment of mA and/or kV according to patient size. COMPARISON: [facility], CT, CT HEAD/BRAIN WO CON, 02/22/2021, 9:29. [facility], CT, CT HEAD/BRAIN WO CON, 02/23/2021, 6:04. FINDINGS: Image quality: Excellent. CSF spaces: Basal cisterns are patent. No extra-axial fluid collections. Prominence of the lateral and 3rd ventricles are grossly unchanged. This is greater than degree of sulcal atrophy. Brain: No intracranial bleeds or masses. There is cerebral volume loss for age, with resultant ventricular and sulcal prominence. There are periventricular and deep white matter chronic small vessel ischemic changes. There is intracranial internal carotid artery atherosclerosis. Skull and face: Calvarium and visualized facial bones appear intact, without suspicious lesions. Sinuses: Visualized sinuses and mastoids are clear. IMPRESSION: No acute intracranial hemorrhage or displaced skull fracture. Stable prominent lateral and 3rd ventricles greater than expected for sulcal atrophy. Recommend correlation for normal pressure hydrocephalus. Findings most consistent with microvascular ischemic changes. Dictated by: Drew Tolentino D.O. on 03/18/2021 at 7:38 Approved by: Drew Tolentino D.O. on 03/18/2021 at 7:42
--- NOTE | 2021-03-18 07:37 | ED.FALL ---
HPI - Fall General Chief Complaint: Fall Stated Complaint: GLF Time Seen by Provider: 03/18/21 07:32 History of Present Illness HPI Narrative: The patient has dementia. She has known multiple falls. She apparently fell this morning, hitting her head. She is not anticoagulated. She arrives by EMS. She has no complaints of pain all over, no specific head injury. No obvious head injury was observed by the paramedics. She is alert, talking and responsive. She can give no history of fall. She is not anticoagulated. She resides at [facility]. She has no specific complaints, other than hurting all over. Paramedics provided no additional information. Related Data Previous Rx's Medication Instructions Recorded donepezil 10 mg tablet 10 mg PO BEDTIME #90 tab 05/24/20 divalproex 125 mg capsule,delayed 125 mg PO ONCE #180 cap 06/14/20 release sprinkle acetaminophen 325 mg capsule 650 mg PO Q4H PRN #30 cap 08/08/20 bisacodyl 5 mg tablet 10 mg PO BEDTIME PRN #30 tab 08/08/20 magnesium hydroxide 400 mg/5 mL 30 ml PO DAILY PRN #3000 ml 08/08/20 oral suspension (Milk of Magnesia) oxycodone 5 mg capsule 5 mg PO TID PRN #14 cap 12/31/20 Allergies Allergy/AdvReac Type Severity Reaction Status Date / Time No Known Drug Allergies Allergy Verified 02/22/21 09:13 Review of Systems Review of Systems Narrative: Unavailable due to the patient's medical condition as noted HPI. Patient History Medical History Advance care planning Anxiety (Unknown) Breast cancer (1979) Cataracts, bilateral (~1999) Chickenpox (Unknown) Dementia Depression (Unknown) Diabetes (Unknown) Fecal incontinence (2015) Fibromyalgia (Unknown) Generalized headaches (Unknown) Hoarseness Hypercholesterolemia (Unknown) Malaria (Unknown) Memory impairment (07/13/16) Memory loss (Unknown) Migraines (Unknown) Mumps (Unknown) Poor short term memory Stiff neck (09/10/17) Type 2 diabetes mellitus without complication, without long-term current use of insulin (09/10/17) Urinary incontinence (1999) Surgical History History of tonsillectomy Status post appendectomy Status post dilation and curettage Family History Father Heart disease Social History marital status: lives independently: Yes caregiver/support person: Yes education level: master's degree Smoking Status: Never smoker alcohol intake: current substance use type: does not use Smoking Status: Never smoker alcohol intake frequency: 0-2 drinks per day Substance Use Type: does not use Exam Initial Vital Signs Initial Vital Signs: Vital Signs Temperature 97 F L 03/18/21 07:24 Pulse Rate 53 L 03/18/21 07:24 Respiratory Rate 18 03/18/21 07:24 Blood Pressure 124/86 03/18/21 07:24 Pulse Oximetry 99 03/18/21 07:24 Const General: cooperative, comfortable and disheveled Nutritional Appearance: thin (Frail) HENMT Head: normal to inspection, normocephalic, atraumatic and other (No visible or palpable tenderness.) Ears: TM's normal bilaterally Nose: nares normal Face and sinus: normal facial exam Mouth: oral mucosae normal Eyes General: appearance normal, both eyes and all related structures Pupils: PERRL EOM: EOM intact bilaterally Neck Neck: normal visual inspection, trachea midline and No tender Chest Chest: normal inspection of the chest and No tenderness Resp Effort & Inspection: normal respiratory effort Auscultation: clear to auscultation bilaterally Cardio Rate: regular rate Rhythm: regular rhythm Heart Sounds: S1 normal, S2 normal and no murmurs GI Palpation: soft, No mass and No tender Auscultation: normal bowel sounds Back/Spine/Pelvis Back: back tenderness and ecchymosis (Yellow contusion across the mid back.) Thoracic/Lumbar Spine: thoracic and lumbar spine normal to inspection Skin General: other (Multiple old contusions. Left hand. Mid back. Right hip. ) Neuro General: patient awake and no focal motor deficits (Although there is a degree of rigidity in all extremities) Cranial Nerves: CN's II-XI intact bilaterally Speech: speech normal Motor: other (Generalized weakness) Sensory Exam: no sensory deficits noted Extrem Left upper extremity: hand (Contusion to the left lateral hand. Left fingers are nontender) Other: Contusion of the right hip. Full range of motion the right hip, no deformity. Normal range of motion in all joints of the lower extremities. Psych Appearance: disheveled Mental Status: other (Disoriented to time and place. Cooperative.) Mood: other (Disoriented to time and place. Cooperative.) Attitude: other (Cooperative with evaluation, but limited communication) Procedures Orthopedic Splinting/Casting Injury #1: Time of procedure: 09:07 Side: left Upper Extremity Injury Location: finger Upper Extremity Immobilizer: ulnar gutter Post splinting neuro exam: intact Post splinting vascular exam: intact Placed by: Provider Additional Comments: The splint was formed from Ortho Glass. Course Course Course Narrative: The patient has multiple injuries, appearing to represent multiple falls over time. There is no acute head or neck injury. A left 5th finger fractures discovered and splinted. Orders Ordered: ED Orders 03/18/21 07:37 CT head/brain wo con Stat 03/18/21 07:38 CT cervical spine wo con Stat XR hand LT min 3V Stat Discontinued Medications Acetaminophen (Acetaminophen 325 Mg Tablet) 650 mg PO NOW ONE Stop: 03/18/21 09:04 Last Admin: 03/18/21 09:12 Dose: 650 mg Documented by: Vital Signs Vital signs: Vital Signs - 8 hr 03/18/21 07:24 03/18/21 07:30 03/18/21 08:03 Temperature 97 F L Pulse Rate 53 L 61 61 Respiratory Rate 18 18 Blood Pressure 124/86 124/86 Pulse Oximetry 99 94 100 MDM - Fall Imaging Data CT scan - head: Radiologist's Impression: Launch?[place] [address] CT Scan Report Signed Patient: Vickie Alston MR#: [id number] : 1935 Acct:[id number] Age/Sex: 85 / F Date of Service: 03/18/21 Loc: ED Accession Number: [id number] ?? Procedure: CT head/brain wo con Ordering Provider: Miguel Santos MD PROCEDURE:? CT HEAD/BRAIN WO CON ? INDICATIONS:? Fall. Head injury.? No anticoagulation. ? TECHNIQUE:? Noncontrast 4.5 mm thick angled axial sections acquired from the foramen magnum to the vertex, with coronal and sagittal reformats.? For radiation dose reduction, the following was used:? automated exposure control, adjustment of mA and/or kV according to patient size.? ? COMPARISON:? [facility], CT, CT HEAD/BRAIN WO CON, 02/22/2021, 9:29.? [facility], CT, CT HEAD/BRAIN WO CON, 02/23/2021, 6:04. ? FINDINGS:? Image quality:? Excellent.? ? CSF spaces:? Basal cisterns are patent.? No extra-axial fluid collections.? Prominence of the lateral and 3rd ventricles are grossly unchanged.? This is greater than degree of sulcal atrophy. ? Brain:? No intracranial bleeds or masses.? There is cerebral volume loss for age, with resultant ventricular and sulcal prominence.? There are periventricular and deep white matter chronic small vessel ischemic changes.? There is intracranial internal carotid artery atherosclerosis.? ? Skull and face:? Calvarium and visualized facial bones appear intact, without suspicious lesions.? ? Sinuses:? Visualized sinuses and mastoids are clear.? ? IMPRESSION:? ? No acute intracranial hemorrhage or displaced skull fracture. ? Stable prominent lateral and 3rd ventricles greater than expected for sulcal atrophy.? Recommend correlation for normal pressure hydrocephalus. ? Findings most consistent with microvascular ischemic changes. ? ? Dictated by: Drew Tolentino D.O. on 03/18/2021 at 7:38 ? ? Approved by: Drew Tolentino D.O. on 03/18/2021 at 7:42?? CT - cervical spine: Radiologist's Impression: DJD. No fracture. Left hand XR: My Impression: 5th finger XR Discharge Plan Departure Patient Disposition: Home Clinical Impression: Multiple falls Dementia Qualifiers: Dementia type: unspecified type Dementia behavioral disturbance: without behavioral disturbance Qualified Code(s): F03.90 - Unspecified dementia without behavioral disturbance Finger fracture, left Qualifiers: Encounter type: initial encounter Finger: little finger Fracture type: closed Phalanx: proximal Fracture alignment: nondisplaced Qualified Code(s): S62.647A - Nondisplaced fracture of proximal phalanx of left little finger, initial encounter for closed fracture Instructions: DI for Finger Fracture Activity Restrictions/Additional Instructions: The splint should remain in place. Her caregiver should check on the fracture in about 2 weeks. Tylenol 2 tablets every 4 hours as needed for pain. Prescriptions: No Action magnesium hydroxide [Milk of Magnesia] 400 mg/5 mL suspension 30 ml PO DAILY PRN (Reason: constipation) Qty: 3000 RF: 3 bisacodyl 5 mg tablet 10 mg PO BEDTIME PRN (Reason: constipation) Qty: 30 RF: 3 acetaminophen 325 mg capsule 650 mg PO Q4H PRN (Reason: fever or pain) Qty: 30 RF: 3 divalproex 125 mg capsule, delayed rel sprinkle 125 mg PO ONCE Qty: 180 RF: 3 donepezil 10 mg tablet 10 mg PO BEDTIME Qty: 90 RF: 3 oxycodone 5 mg capsule 5 mg PO TID PRN (Reason: rib pain) Qty: 14 RF: 0
--- NOTE | 2021-03-18 07:38 | DI.RAD.S_ITS ---
PROCEDURE: XR HAND LT MIN 3V INDICATIONS: Fall. Uncertain timeline. Obvious left hand injury. TECHNIQUE: 3 views of the hand(s) acquired. COMPARISON: None. FINDINGS: Bones: Osseous demineralization limiting evaluation for nondisplaced fracture. Mildly displaced oblique fracture of the proximal 5th phalanx. Carpal bones are normally aligned. Degenerative changes of the wrist and hand worse at the 1st carpometacarpal joint are noted. No suspicious bony lesions. Soft tissues: No suspicious soft tissue calcifications. There is soft tissue swelling noted adjacent to the 5th finger. IMPRESSION: Mildly displaced oblique fracture of the 5th proximal phalanx. Degenerative changes of the wrist and hand worse of the wrist and hand worse at the 1st carpometacarpal joint. Dictated by: Drew Tolentino D.O. on 03/18/2021 at 7:48 Approved by: Drew Tolentino D.O. on 03/18/2021 at 7:50
--- NOTE | 2021-03-18 07:38 | DI.CT.S_ITS ---
PROCEDURE: CT CERVICAL SPINE WO CON INDICATIONS: Fall. Head injury. Dementia. TECHNIQUE: Noncontrast 3 mm thick sections acquired from the skull base to the T4 level. Sagittal and coronal reformats were then constructed. For radiation dose reduction, the following was used: automated exposure control, adjustment of mA and/or kV according to patient size. COMPARISON: [facility], CT, CT CERVICAL SPINE WO CON, 02/22/2021, 9:29. [facility], CT, CT CERVICAL SPINE WO CON, 01/23/2021, 20:50. FINDINGS: Image quality: Somewhat limited by rotation and motion artifact. This is worse at the craniocervical junction. Bones: No fractures or dislocations. Visualized superior ribs are intact. Hypertrophic degenerative changes of the atlantoaxial articulation. Multiple levels of degenerative changes of the cervical spine worse at C4-C5 where there is at least moderate intervertebral disc space loss with endplate osteophytes, uncovertebral and facet arthropathy, mild spinal canal stenosis and at least moderate neural foraminal stenosis. Soft tissues: Prevertebral soft tissues are normal in thickness. No paravertebral hematomas. No apical pneumothoraces. Stable calcification within the right thyroid lobe. IMPRESSION: Negative for fracture. Degenerative changes of the cervical spine are stable worse at C4-C5. Dictated by: Drew Tolentino D.O. on 03/18/2021 at 7:43 Approved by: Drew Tolentino D.O. on 03/18/2021 at 7:47
[2021-03-18 08:03] VITALS: PULSE 61; O2SAT 100
[2021-03-18 08:42] VITALS: PULSE 60; RESP 18
[2021-03-18 09:00] VITALS: BP 120/74; PULSE 57; O2SAT 100
[2021-03-18] MEDS: ACETAMINOPHEN 325 MG TABLET 650 MG PO (09:12)
== END 2021-03-18 09:25 | disposition home or self-care (01) ==
PROVIDERS: Emergency Provider Emergency Medicine
DX: S62.647A Nondisplaced fracture of proximal phalanx of left little finger, initial encounter for closed fracture (principal); F03.90 Unspecified dementia, unspecified severity, without behavioral disturbance, psychotic disturbance, mood disturbance, and anxiety; W19.XXXA Unspecified fall, initial encounter; R29.6 Repeated falls
CPT/HCPCS: 70450; 72125; 73130; 99284

== ENCOUNTER 2021-06-17 16:52 | Emergency (ER) | payer MEDICARE, OTHER, SELFPAY ==
[2021-06-17] VITALS (7 sets, daily range): BP systolic 134–173; BP diastolic 60–120; PULSE 64–80; RESP 18–27; TEMP 36.2; O2SAT 95–99
--- NOTE | 2021-06-17 17:15 | ED_ITS ---
HPI - Fall General Chief Complaint: Fall Stated Complaint: unwitnessed fall, neck pain Time Seen by Provider: 06/17/21 17:11 Source: EMS Mode of arrival: EMS History of Present Illness HPI Narrative: Patient is an 86-year-old female who resides at [facility] history of dementia hypertension, diabetes presenting today with an unwitnessed fall. She previously has had multiple unwitnessed fall she has also had UTIs in the past. She was seen multiple times in February for following up has not been seen since. It is thought that she has falls transferring. It is unclear what happened today she has no sign of injury. She is awake alert and is answering some questions. She does not remember how she fell she does not complain of any pain. She does have tremors which are apparently baseline. She is not on any anti-platelet or anticoagulation medication. She does say that she might be slightly dizzy. Related Data Previous Rx's Medication Instructions Recorded donepezil 10 mg tablet 10 mg PO BEDTIME #90 tab 05/24/20 divalproex 125 mg capsule,delayed 125 mg PO ONCE #180 cap 06/14/20 release sprinkle acetaminophen 325 mg capsule 650 mg PO Q4H PRN #30 cap 08/08/20 bisacodyl 5 mg tablet 10 mg PO BEDTIME PRN #30 tab 08/08/20 magnesium hydroxide 400 mg/5 mL 30 ml PO DAILY PRN #3000 ml 08/08/20 oral suspension (Milk of Magnesia) oxycodone 5 mg capsule 5 mg PO TID PRN #14 cap 12/31/20 cephalexin 500 mg capsule 500 mg PO BID 7 Days #14 cap 06/17/21 Allergies Allergy/AdvReac Type Severity Reaction Status Date / Time No Known Drug Allergies Allergy Verified 02/22/21 09:13 Review of Systems Review of Systems ROS Unobtainable: Unobtainable due to medical condition Patient History Medical History Advance care planning Anxiety (Unknown) Breast cancer (1979) Cataracts, bilateral (~1999) Chickenpox (Unknown) Dementia Depression (Unknown) Diabetes (Unknown) Fecal incontinence (2016) Fibromyalgia (Unknown) Generalized headaches (Unknown) Hoarseness Hypercholesterolemia (Unknown) Malaria (Unknown) Memory impairment (07/13/16) Memory loss (Unknown) Migraines (Unknown) Mumps (Unknown) Poor short term memory Stiff neck (09/10/17) Type 2 diabetes mellitus without complication, without long-term current use of insulin (09/10/17) Urinary incontinence (1999) Surgical History History of tonsillectomy Status post appendectomy Status post dilation and curettage Family History Father Heart disease Social History marital status: lives independently: Yes caregiver/support person: Yes education level: master's degree Smoking Status: Never smoker alcohol intake: current substance use type: does not use Smoking Status: Never smoker alcohol intake frequency: 0-2 drinks per day Substance Use Type: does not use Exam Initial Vital Signs Initial Vital Signs: Vital Signs Temperature 97.2 F L 06/17/21 16:55 Pulse Rate 65 06/17/21 16:55 Respiratory Rate 18 06/17/21 16:55 Blood Pressure 173/70 H 06/17/21 16:55 Pulse Oximetry 99 06/17/21 16:55 GENERAL: Alert 86-year-old female weak and in no acute distress. HEENT: Head atraumatic,EOMI, pupils reactive, face symmetric, moist mucous membranes NECK no vertebral tenderness no step-off CARDIOVASCULAR: Regular rate and rhythm without murmurs, rubs or gallops. RESPIRATORY: Breath sounds equal bilaterally, no wheezes rales or rhonchi. ABDOMEN: Soft, nontender. Normoactive bowel sounds all 4 quadrants. No guarding or rebound. EXTREMITIES: Normal range of motion, no clubbing or edema. 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 Course Orders Ordered: ED Orders 06/17/21 17:24 CT cervical spine wo con Stat CT head/brain wo con Stat 06/17/21 18:00 UA Complete [Urinalysis and Microscopic] Stat Urine Culture Stat 06/17/21 18:05 CBC Auto Diff [Complete Blood Count AUTO DIFF] Stat CMP [Comprehensive Metabolic Panel] Stat Discontinued Medications Cefazolin Sodium (Cephalexin 250 Mg Prepack) 1 bottle MISC SEEINSTR ONE Stop: 06/17/21 19:10 Last Admin: 06/17/21 19:44 Dose: 1 bottle Documented by: RULA Vital Signs Vital signs: Vital Signs - 8 hr 06/17/21 18:04 06/17/21 18:30 06/17/21 18:31 Pulse Rate 76 73 80 Respiratory Rate 27 H 25 H 26 H Blood Pressure 160/120 H Pulse Oximetry 98 95 06/17/21 19:20 06/17/21 19:50 Pulse Rate 69 78 Respiratory Rate 22 Blood Pressure 134/60 134/60 Pulse Oximetry 98 MDM - Fall Lab Data Result diagrams: 06/17/21 18:05 06/17/21 18:05 Labs: Lab Results 06/17/21 06/17/21 06/17/21 Range/Units 18:00 18:05 18:05 WBC 6.0 (4.5-11.0) X10^3/uL RBC 4.44 (4.0-5.2) X10^6/uL Hgb 13.2 (12.0-16.0) g/dL Hct 39.2 (36-46) % MCV 88.3 (80-100) fL MCH 29.8 (26-34) PG MCHC 33.7 (30-36) % RDW 14.3 (11.6-14.8) % Plt Count 238 (150-400) X10^3/uL Neut % (Auto) 58.6 (50-75) % Lymph % (Auto) 30.9 (25-40) % [place] % (Auto) 6.6 (3-14) % Eos % (Auto) 2.8 (2-4) % Baso % (Auto) 1.1 (0-2) % Neut # (Auto) 3500 (4539-5822) /uL Lymph # (Auto) 1900 (2656-4847) /uL [place] # (Auto) 400 (0-900) /uL Eos # (Auto) 200 (0-450) /uL Baso # (Auto) 100 (0-100) /uL Sodium 135 L (137-145) mmol/L Potassium 4.2 (3.4-5.1) mmol/L Chloride 103 (98-107) mmol/L Carbon Dioxide 27 (22-32) mmol/L BUN 15 (7-17) mg/dL Creatinine 0.74 (0.52-1.04) mg/dL Estimated GFR > 60.0 (>60) mL/min BUN/Creatinine Ratio 20.3 (6-22) Glucose 196 H (80-110) mg/dL Calcium 8.9 (8.4-10.2) mg/dL Total Bilirubin 0.8 (0.2-1.3) mg/dL AST 21 (14-36) IU/L ALT 11 (<35) IU/L Alkaline Phosphatase 101 (38-126) U/L Total Protein 6.4 (6.3-8.2) g/dL Albumin 3.9 (3.5-5.0) g/dL Globulin 2.5 (1.7-4.1) g/dL Albumin/Globulin Ratio 1.6 (1.0-2.8) Urine Color Yellow Urine Appearance Cloudy Urine pH 6.5 (4.5-8.0) Ur Specific [place] 1.010 (1.000-1.035) Urine Protein Trace H (Negative) Urine Glucose (UA) Trace H (Negative) g/dL Urine Ketones Trace H (NEGATIVE) Urine Occult Blood Trace-intact (Negative) Urine Nitrate Negative (Negative) Urine Bilirubin Negative (NEGATIVE) Urine Urobilinogen 0.2 (0.2) E.U./dL Ur Leukocyte Esterase 1+ H (NEGATIVE) Urine RBC 0-1/hpf (0-5/HPF) Urine WBC 5-10/hpf H (0-5/HPF) Ur Transition Epith Cell 5-10/hpf H (0-5/HPF) Urine Bacteria Many (>30) H (None) Ur Culture Indicated? Specimen cultured Imaging Data CT scan - head: Radiologist's Impression: PROCEDURE:? CT HEAD/BRAIN WO CON ? INDICATIONS:? fall ? TECHNIQUE:? Noncontrast 4.5 mm thick angled axial sections acquired from the foramen magnum to the vertex, with coronal and sagittal reformats.? For radiation dose reduction, the following was used:? automated exposure control, adjustment of mA and/or kV according to patient size.? ? COMPARISON:? [facility], CT, CT HEAD/BRAIN WO CON, 03/18/2021, 7:57. ? FINDINGS:? Image quality:? Excellent.? ? CSF spaces:? Basal cisterns are patent.? No extra-axial fluid collections.? The ventricles are symmetric in size and shape.? ? Brain:? No intracranial bleeds or masses.? There is cerebral volume loss for age, with resultant ventricular and sulcal prominence.? There are periventricular and deep white matter chronic small vessel ischemic changes.? There is intracranial internal carotid artery atherosclerosis.? ? Skull and face:? Calvarium and visualized facial bones appear intact, without suspicious lesions.? ? Sinuses:? Visualized sinuses and mastoids are clear.? ? IMPRESSION:? ? Moderate atrophy and chronic ischemic change without acute intracranial hemorrhage or mass effect. ? ? ? Approved by: Stiven Jackson M.D. on 06/17/2021 at 17:07? CT - cervical spine: Radiologist's Impression: PROCEDURE:? CT CERVICAL SPINE WO CON ? INDICATIONS:? fall ? TECHNIQUE:? Noncontrast 3 mm thick sections acquired from the skull base to the T4 level.? Sagittal and coronal reformats were then constructed.? For radiation dose reduction, the following was used:? automated exposure control, adjustment of mA and/or kV according to patient size.? ? COMPARISON:? [facility], CT, CT CERVICAL SPINE WO CON, 03/18/2021, 7:57. ? FINDINGS:? Image quality:? Excellent.? ? Bones:? No fractures or dislocations.? Visualized superior ribs are intact.? T0 degenerative disc disease and arthropathy noted in the mid cervical spine.? Moderate central right foraminal stenosis present C4-5, similar prior. ? Soft tissues:? Prevertebral soft tissues are normal in thickness.? No paravertebral hematomas.? No apical pneumothoraces.? ? ? IMPRESSION:? ? 1. No evidence of fracture or traumatic malalignment ? 2. Multilevel degenerative disc disease and arthropathy resulting in C4-5 moderate central stenosis, stable from the prior. ? Approved by: Stiven Jackson M.D. on 06/17/2021 at 17:10? [facility] Narrative Medical decision making narrative: Patient had an unwitnessed fall today. She previously had multiple falls in February but has been here for number of months. No evidence of injury. She previously had UTIs. Blood work and scans are overall reassuring. However urine does confirm UTI, which may have contributed to her fall today. Given antibiotics. Discharge Plan Departure Patient Disposition: Home Clinical Impression: Acute UTI Instructions: DI for Urinary Tract Infection (UTI) Activity Restrictions/Additional Instructions: *You have been diagnosed with UTI *What to do: Blood work and CT scans are reassuring found to have bladder infection *Continue to take medications as directed Keflex 500 mg twice a day for 7 days--> SENT TO [facility] *Follow up with your primary care provider in 2-3 days or call [phone] *Return to ER if you should have been, increasing falls oror any new, worsening or concerning symptoms Prescriptions: New cephalexin 500 mg capsule 500 mg PO BID 7 Days Qty: 14 0RF No Action magnesium hydroxide [Milk of Magnesia] 400 mg/5 mL suspension 30 ml PO DAILY PRN (Reason: constipation) Qty: 3000 3RF Rx Instructions: Give 30ml of milk of magnesia or generic equivalent by mouth if no BM in 3 days or for complaint of constipation PRN. If ineffective after 24 hours, give bisacodyl suppository per order bisacodyl 5 mg tablet 10 mg PO BEDTIME PRN (Reason: constipation) Qty: 30 3RF Rx Instructions: Take Bisacodyl 5mg, 2 tablets by mouth for constipation not relieved by MOM. If ineffective after 24 hours notify MD acetaminophen 325 mg capsule 650 mg PO Q4H PRN (Reason: fever or pain) Qty: 30 3RF Rx Instructions: Give 2 tablets (650mg) by mouth every four hours as needed for complaints of mild/moderate headaches, musculoskeletal pain or fever>100F. If pain is not relieved or fever not <100 in 4 hours, notify MD. Do not exceed 3000mg APAP/24 hours from all sources. divalproex 125 mg capsule, delayed rel sprinkle 125 mg PO ONCE Qty: 180 3RF Rx Instructions: Take 1 cap at bedtime daily, may repeat 1x/24 hours as needed for agitation donepezil 10 mg tablet 10 mg PO BEDTIME Qty: 90 3RF Rx Instructions: Take 1 tab by mouth daily for confusion oxycodone 5 mg capsule 5 mg PO TID PRN (Reason: rib pain) Qty: 14 0RF
--- NOTE | 2021-06-17 17:24 | DI.CT.S_ITS ---
PROCEDURE: CT HEAD/BRAIN WO CON INDICATIONS: fall TECHNIQUE: Noncontrast 4.5 mm thick angled axial sections acquired from the foramen magnum to the vertex, with coronal and sagittal reformats. For radiation dose reduction, the following was used: automated exposure control, adjustment of mA and/or kV according to patient size. COMPARISON: [facility], CT, CT HEAD/BRAIN WO CON, 03/18/2021, 7:57. FINDINGS: Image quality: Excellent. CSF spaces: Basal cisterns are patent. No extra-axial fluid collections. The ventricles are symmetric in size and shape. Brain: No intracranial bleeds or masses. There is cerebral volume loss for age, with resultant ventricular and sulcal prominence. There are periventricular and deep white matter chronic small vessel ischemic changes. There is intracranial internal carotid artery atherosclerosis. Skull and face: Calvarium and visualized facial bones appear intact, without suspicious lesions. Sinuses: Visualized sinuses and mastoids are clear. IMPRESSION: Moderate atrophy and chronic ischemic change without acute intracranial hemorrhage or mass effect. Approved by: Stiven Jackson M.D. on 06/17/2021 at 17:07
--- NOTE | 2021-06-17 17:24 | DI.CT.S_ITS ---
PROCEDURE: CT CERVICAL SPINE WO CON INDICATIONS: fall TECHNIQUE: Noncontrast 3 mm thick sections acquired from the skull base to the T4 level. Sagittal and coronal reformats were then constructed. For radiation dose reduction, the following was used: automated exposure control, adjustment of mA and/or kV according to patient size. COMPARISON: [facility], CT, CT CERVICAL SPINE WO CON, 03/18/2021, 7:57. FINDINGS: Image quality: Excellent. Bones: No fractures or dislocations. Visualized superior ribs are intact. T0 degenerative disc disease and arthropathy noted in the mid cervical spine. Moderate central right foraminal stenosis present C4-5, similar prior. Soft tissues: Prevertebral soft tissues are normal in thickness. No paravertebral hematomas. No apical pneumothoraces. IMPRESSION: 1. No evidence of fracture or traumatic malalignment 2. Multilevel degenerative disc disease and arthropathy resulting in C4-5 moderate central stenosis, stable from the prior. Approved by: Stiven Jackson M.D. on 06/17/2021 at 17:10
[2021-06-17 18:16] LABS: Add Manual Diff / Slide Review NO; Basophils Absolute Auto 100 /uL (0-100); Basophils Percent Auto 1.1 % (0-2); Eosinophils Absolute Auto 200 /uL (0-450); Eosinophils Percent Auto 2.8 % (2-4); Hematocrit 39.2 % (36-46); Hemoglobin 13.2 g/dL (12.0-16.0); Lymphocytes Absolute Auto 1900 /uL (1100-4500); Lymphocytes Percent Auto 30.9 % (25-40); Mean Corpuscular HGB Conc 33.7 % (30-36); Mean Corpuscular Hemoglobin 29.8 PG (26-34); Mean Corpuscular Volume 88.3 fL (80-100); Monocytes Absolute Auto 400 /uL (0-900); Monocytes Percent Auto 6.6 % (3-14); Neutrophils Absolute Auto 3500 /uL (1500-7000); Neutrophils Percent Auto 58.6 % (50-75); Platelet Count 238 X10^3/uL (150-400); Red Blood Cell Count 4.44 X10^6/uL (4.0-5.2); Red Cell Distribution Width 14.3 % (11.6-14.8)
[2021-06-17 18:20] LABS: Appearance Urine UA CLOUDY; Bilirubin Urine UA NEGATIVE (NEGATIVE); Color Urine UA YELLOW; Glucose Urine UA TRACE g/dL (Negative); Ketones Urine UA TRACE (NEGATIVE); Leukocyte Esterase Urine UA 1+ (NEGATIVE); Nitrite Urine UA NEGATIVE (Negative); Occult Blood Urine UA TRACE-INTACT (Negative); Protein Urine UA TRACE (Negative); Urobilinogen Urine UA 0.2 E.U./dL (0.2)
[2021-06-17 18:25] LABS: pH Urine UA 6.5 (4.5-8.0)
[2021-06-17 18:30] LABS: Alanine Aminotransferase 11 IU/L (<35); Albumin 3.9 g/dL (3.5-5.0); Albumin Globulin Ratio 1.6 (1.0-2.8); Alkaline Phosphatase 101 U/L (38-126); Aspartate Aminotransferase 21 IU/L (14-36); BUN Creatinine Ratio 20.3 (6-22); Bilirubin Total 0.8 mg/dL (0.2-1.3); Blood Urea Nitrogen 15 mg/dL (7-17); Calcium 8.9 mg/dL (8.4-10.2); Carbon Dioxide 27 mmol/L (22-32); Chloride 103 mmol/L (98-107); Estimated Glomerular Filt Rate > 60.0 mL/min (>60); Globulin 2.5 g/dL (1.7-4.1); Glucose 196 mg/dL (80-110); HEMOLYSIS < 15 (0-50); Potassium 4.2 mmol/L (3.4-5.1); Sodium 135 mmol/L (137-145); Total Protein 6.4 g/dL (6.3-8.2)
[2021-06-17 18:41] LABS: RBC Urine 0-1/HPF (0-5/HPF); WBC Urine 5-10/HPF (0-5/HPF)
[2021-06-17 18:42] LABS: Bacteria Urine Many (>30); Culture Indicated Urine Specimen Cultured; Transitional Epi Cells Urine 5-10/HPF (0-5/HPF)
[2021-06-17] MEDS: cephALEXin 250 MG PREPACK 1 BOTTLE MISC (19:44)
== END 2021-06-17 19:54 | disposition home or self-care (01) ==
PROVIDERS: Emergency Provider Emergency Medicine
DX: N39.0 Urinary tract infection, site not specified (principal); Z46.6 Encounter for fitting and adjustment of urinary device
CPT/HCPCS: 51701; 70450; 72125; 80053; 81001; 85025; 87077; 87086; 87186; 99283; 99284

== ENCOUNTER 2021-06-21 16:29 | Emergency (ER) | payer MEDICARE, OTHER, SELFPAY ==
--- NOTE | 2021-06-21 16:34 | DI.RAD.S_ITS ---
PROCEDURE: XR HIP W PEL IF DONE RT 2V INDICATIONS: fall TECHNIQUE: AP pelvis with lateral view(s) of the right hip(s). COMPARISON: [facility], CR, XR HIP W PEL IF DONE LT 2V, 02/22/2021, 9:25. FINDINGS: Bones: No fractures or dislocations. Mild to moderate right hip joint osteoarthritic changes are seen. No evidence of avascular necrosis of femoral head. Pelvic ring appears intact. No suspicious bony lesions. Soft tissues: The visualized bowel gas pattern is normal. No suspicious soft tissue calcifications. IMPRESSION: No acute pelvic or hip fracture. Right worse than left bilateral hip joint osteoarthritis. No evidence of avascular necrosis. Dictated by: Shawn Meadows M.D. on 06/21/2021 at 16:49 Approved by: Shawn Meadows M.D. on 06/21/2021 at 16:50
--- NOTE | 2021-06-21 16:34 | DI.RAD.S_ITS ---
PROCEDURE: XR KNEE RT 1TO2V INDICATIONS: fall TECHNIQUE: 2 views of the knee were acquired. COMPARISON: None. FINDINGS: Bones: No acute fractures or dislocations. No suspicious bony lesions. Soft tissues: No joint effusion. No suspicious soft tissue calcifications. IMPRESSION: No acute osseous abnormality. If clinical suspicion and/or symptoms persist, additional imaging with repeat plain films, or advanced imaging (e.g. CT, MRI) may be helpful for further assessment. Dictated by: Piyush Sumner M.D. on 06/21/2021 at 16:52 Approved by: Piyush Sumner M.D. on 06/21/2021 at 16:53
[2021-06-21 16:35] VITALS: BP 199/88; PULSE 70; RESP 24; TEMP 36.4; O2SAT 96
--- NOTE | 2021-06-21 16:57 | ED_ITS ---
HPI - Fall General Chief Complaint: Fall Stated Complaint: GLF Time Seen by Provider: 06/21/21 16:46 Source: EMS Mode of arrival: EMS Limitations: altered mental status History of Present Illness HPI Narrative: Patient is a 86-year-old female with a history of dementia is brought in by EMS for evaluation of right hip and knee pain. Reported by the facility that this was a witnessed fall where the patient fell on the right side. Is also reported that she was unable to put any pressure on her right lower extremity. No reports of head injury. Not on anticoagulation. Patient unable to provide any HPI secondary to her dementia. Related Data Previous Rx's Medication Instructions Recorded donepezil 10 mg tablet 10 mg PO BEDTIME #90 tab 05/24/20 divalproex 125 mg capsule,delayed 125 mg PO ONCE #180 cap 06/14/20 release sprinkle acetaminophen 325 mg capsule 650 mg PO Q4H PRN #30 cap 08/08/20 bisacodyl 5 mg tablet 10 mg PO BEDTIME PRN #30 tab 08/08/20 magnesium hydroxide 400 mg/5 mL 30 ml PO DAILY PRN #3000 ml 08/08/20 oral suspension (Milk of Magnesia) oxycodone 5 mg capsule 5 mg PO TID PRN #14 cap 12/31/20 cephalexin 500 mg capsule 500 mg PO BID 7 Days #14 cap 06/17/21 Allergies Allergy/AdvReac Type Severity Reaction Status Date / Time No Known Drug Allergies Allergy Verified 02/22/21 09:13 Review of Systems Review of Systems ROS Unobtainable: Unobtainable due to mental status/LOC Patient History Medical History Advance care planning Anxiety (Unknown) Breast cancer (1979) Cataracts, bilateral (~1999) Chickenpox (Unknown) Dementia Depression (Unknown) Diabetes (Unknown) Fecal incontinence (2015) Fibromyalgia (Unknown) Generalized headaches (Unknown) Hoarseness Hypercholesterolemia (Unknown) Malaria (Unknown) Memory impairment (07/13/16) Memory loss (Unknown) Migraines (Unknown) Mumps (Unknown) Poor short term memory Stiff neck (09/10/17) Type 2 diabetes mellitus without complication, without long-term current use of insulin (09/10/17) Urinary incontinence (1999) Surgical History History of tonsillectomy Status post appendectomy Status post dilation and curettage Family History Father Heart disease Social History marital status: lives independently: Yes caregiver/support person: Yes education level: master's degree Smoking Status: Never smoker alcohol intake: current substance use type: does not use Smoking Status: Never smoker alcohol intake frequency: 0-2 drinks per day Substance Use Type: does not use Exam Initial Vital Signs Initial Vital Signs: Vital Signs Temperature 97.5 F L 06/21/21 16:35 Pulse Rate 70 06/21/21 16:35 Respiratory Rate 24 06/21/21 16:35 Blood Pressure 199/88 H 06/21/21 16:35 Pulse Oximetry 96 06/21/21 16:35 HENMT Head: normal to inspection and normocephalic Resp Effort & Inspection: normal respiratory effort Auscultation: clear to auscultation bilaterally Cardio Rate: regular rate Rhythm: regular rhythm GI Inspection: non-distended Palpation: soft Skin General: no rashes or lesions noted Neuro General: patient awake and moves all extremities Other: Confusion. Does not know where she is or year or date. Extrem Other: Patient able to move bilateral upper and lower extremities without apparent discomfort. Can flex and extend the right hip without apparent discomfort. Patient was able to stand at bedside without apparent discomfort. Course Orders Ordered: ED Orders 06/21/21 16:34 XR hip w pel if done RT 2V Stat XR knee RT 1to2V Stat Discontinued Medications Quetiapine Fumarate (Quetiapine 25 Mg Tablet) 50 mg PO NOW ONE Stop: 06/21/21 18:01 Vital Signs Vital signs: Vital Signs - 8 hr 06/21/21 16:35 Temperature 97.5 F L Pulse Rate 70 Respiratory Rate 24 Blood Pressure 199/88 H Pulse Oximetry 96 MDM - Fall Imaging Data Extremity x-ray #1: Radiologist's Impression: [address] [address] XRay Report Signed Patient: Vickie Alston MR#: [id number] : 1935 Acct:[id number] Age/Sex: 86 / F Date of Service: 06/21/21 Loc: ED Accession Number: [id number] ?? Procedure: XR hip w pel if done RT 2V Ordering Provider: Puneet Delacruz D.O. PROCEDURE:? XR HIP W PEL IF DONE RT 2V ? INDICATIONS:? fall ? TECHNIQUE:? AP pelvis with lateral view(s) of the right hip(s).? ? COMPARISON:? [facility], CR, XR HIP W PEL IF DONE LT 2V, 02/22/2021, 9:25. ? FINDINGS:? ? Bones:? No fractures or dislocations.? Mild to moderate right hip joint osteoarthritic changes are seen.? No evidence of avascular necrosis of femoral head.? Pelvic ring appears intact.? No suspicious bony lesions.? ? Soft tissues:? The visualized bowel gas pattern is normal.? No suspicious soft tissue calcifications.? ? ? IMPRESSION:? No acute pelvic or hip fracture.? Right worse than left bilateral hip joint osteoarthritis.? No evidence of avascular necrosis.? ? ? Dictated by: Shawn Meadows M.D. on 06/21/2021 at 16:49 ? ? Approved by: Shawn Meadows M.D. on 06/21/2021 at 16:50?? Extremity x-ray #2: Radiologist's Impression: [place] [address] XRay Report Signed Patient: Vickie Alston MR#: [id number] : 1935 Acct:[id number] Age/Sex: 86 / F Date of Service: 06/21/21 Loc: ED Accession Number: [id number] ?? Procedure: XR knee RT 1to2V Ordering Provider: Puneet Delacruz D.O. PROCEDURE:? XR KNEE RT 1TO2V ? INDICATIONS:? fall ? TECHNIQUE:? 2 views of the knee were acquired.? ? COMPARISON:? None. ? FINDINGS:? ? Bones:? No acute fractures or dislocations.? No suspicious bony lesions.? ? Soft tissues:? No joint effusion.? No suspicious soft tissue calcifications.? ? ? IMPRESSION:? No acute osseous abnormality.? If clinical suspicion and/or symptoms persist, additional imaging with repeat plain films, or advanced imaging (e.g. CT, MRI) may be helpful for further assessment. ? ? Dictated by: Piyush Sumner M.D. on 06/21/2021 at 16:52 ? ? Approved by: Piyush Sumner M.D. on 06/21/2021 at 16:53?? [facility] Narrative Medical decision making narrative: There were no fractures noted on the x-rays. She does not have any apparent dis comfort with movement or palpation of her 4 extremities and she was able to put pressure on her right lower extremity at bedside. Patient is a DNR with comfort measures only. POLST was at bedside. Will discharge back to her living facility without further workup. Discharge Plan Departure Patient Disposition: Home Clinical Impression: Fall, Acute pain of right hip Instructions: How to Prevent Falls Activity Restrictions/Additional Instructions: She can continue to take all of her medications as directed. Contact her primary provider for a follow-up. She can return to the emergency department for any new or worsening symptoms Prescriptions: No Action magnesium hydroxide [Milk of Magnesia] 400 mg/5 mL suspension 30 ml PO DAILY PRN (Reason: constipation) Qty: 3000 3RF Rx Instructions: Give 30ml of milk of magnesia or generic equivalent by mouth if no BM in 3 days or for complaint of constipation PRN. If ineffective after 24 hours, give bisacodyl suppository per order bisacodyl 5 mg tablet 10 mg PO BEDTIME PRN (Reason: constipation) Qty: 30 3RF Rx Instructions: Take Bisacodyl 5mg, 2 tablets by mouth for constipation not relieved by MOM. If ineffective after 24 hours notify acetaminophen 325 mg capsule 650 mg PO Q4H PRN (Reason: fever or pain) Qty: 30 3RF Rx Instructions: Give 2 tablets (650mg) by mouth every four hours as needed for complaints of mild/moderate headaches, musculoskeletal pain or fever>100F. If pain is not relieved or fever not <100 in 4 hours, notify MD. Do not exceed 3000mg APAP/24 hours from all sources. divalproex 125 mg capsule, delayed rel sprinkle 125 mg PO ONCE Qty: 180 3RF Rx Instructions: Take 1 cap at bedtime daily, may repeat 1x/24 hours as needed for agitation donepezil 10 mg tablet 10 mg PO BEDTIME Qty: 90 3RF Rx Instructions: Take 1 tab by mouth daily for confusion oxycodone 5 mg capsule 5 mg PO TID PRN (Reason: rib pain) Qty: 14 0RF cephalexin 500 mg capsule 500 mg PO BID 7 Days Qty: 14 0RF
[2021-06-21] MEDS: QUETIAPINE 25 MG TABLET 50 MG PO (18:14)
--- NOTE | 2021-06-21 18:15 | PC.NURSE ---
Patient tries to climb out of bed. This SUPPLIER DEVELOPMENT MANAGER intervenes by asking patient to stay in the bed. This SUPPLIER DEVELOPMENT MANAGER gently places legs back on the bed and off the side rail.
--- NOTE | 2021-06-21 18:20 | PC.NURSE ---
pt has AMS d/t dementia and is a fall risk, pt continually attempting to get OOB home medications ordered for agitation per MAR
[2021-06-21] MEDS: clonazePAM 0.5 MG TABLET PO (19:08)
--- NOTE | 2021-06-21 19:23 | PC.NURSE ---
report called to Lenora at [facility] for her return after BLS tx
[2021-06-21 20:01] VITALS: BP 156/70; PULSE 77; O2SAT 97
--- NOTE | 2021-06-21 20:56 | PC.NURSE ---
Patient tries to get out of bed by putting legs over the side rails. This ANIMAL CARE PROVIDER continues to monitor and intervene by asking patient to stay in bed and assisting patient with putting legs back on the bed.
[2021-06-21 21:11] VITALS: BP 163/72; PULSE 63; RESP 16; O2SAT 96
== END 2021-06-21 21:12 | disposition home or self-care (01) ==
PROVIDERS: Emergency Provider Emergency Medicine
DX: M25.551 Pain in right hip (principal); W18.30XA Fall on same level, unspecified, initial encounter
CPT/HCPCS: 73502; 73560; 99283

== ENCOUNTER 2021-06-23 15:12 | Emergency (ER) | payer MEDICARE, OTHER, SELFPAY ==
[2021-06-23 15:15] VITALS: BP 150/69; PULSE 60; RESP 18; TEMP 36.1; O2SAT 96; BMI 20.3
--- NOTE | 2021-06-23 16:23 | DI.CT.S_ITS ---
PROCEDURE: CT HEAD/BRAIN WO CON INDICATIONS: unresponsive TECHNIQUE: Noncontrast 4.5 mm thick angled axial sections acquired from the foramen magnum to the vertex, with coronal and sagittal reformats. For radiation dose reduction, the following was used: automated exposure control, adjustment of mA and/or kV according to patient size. COMPARISON: [facility], CT, CT HEAD/BRAIN WO CON, 06/17/2021, 17:30. FINDINGS: Image quality: Excellent. CSF spaces: Basal cisterns are patent. No extra-axial fluid collections. The ventricles are symmetric in size and shape. Brain: No intracranial bleeds or masses. There is cerebral volume loss for age, with resultant ventricular and sulcal prominence. There are periventricular and deep white matter chronic small vessel ischemic changes. There is intracranial internal carotid artery atherosclerosis. Skull and face: Calvarium and visualized facial bones appear intact, without suspicious lesions. Sinuses: Visualized sinuses and mastoids are clear. IMPRESSION: Moderate atrophy and chronic ischemic change without acute hemorrhage or mass effect. No change from the prior exam. Approved by: Stiven Jackson M.D. on 06/23/2021 at 16:01
--- NOTE | 2021-06-23 16:28 | ED.FALL ---
HPI - Fall <Ken Mayfield PA-C - Last Filed: 06/23/21 19:29> General Chief Complaint: Fall Stated Complaint: Fall from chair to wheelchair Time Seen by Provider: 06/23/21 16:12 Mode of arrival: Ambulatory History of Present Illness HPI Narrative: Patient is an 86-year-old female who presents to the ED via EMS for reported fall. Patient has fallen frequently amount times no family present to offer any additional history patient is difficult to arouse has a known history of dementia vital signs appear stable. Report from EMS was that patient had fallen from ground level and was found on the floor. Patient is a poor historian. Related Data Previous Rx's Medication Instructions Recorded donepezil 10 mg tablet 10 mg PO BEDTIME #90 tab 05/24/20 divalproex 125 mg capsule,delayed 125 mg PO ONCE #180 cap 06/14/20 release sprinkle acetaminophen 325 mg capsule 650 mg PO Q4H PRN #30 cap 08/08/20 bisacodyl 5 mg tablet 10 mg PO BEDTIME PRN #30 tab 08/08/20 magnesium hydroxide 400 mg/5 mL 30 ml PO DAILY PRN #3000 ml 08/08/20 oral suspension (Milk of Magnesia) oxycodone 5 mg capsule 5 mg PO TID PRN #14 cap 12/31/20 cephalexin 500 mg capsule 500 mg PO BID 7 Days #14 cap 06/17/21 Allergies Allergy/AdvReac Type Severity Reaction Status Date / Time No Known Drug Allergies Allergy Verified 02/22/21 09:13 Review of Systems <Ken Mayfield PA-C - Last Filed: 06/23/21 19:29> Review of Systems Narrative: Unable to perform review of systems due to patient's mental state ROS Unobtainable: Unobtainable due to mental status/LOC Patient History <Ken Mayfield PA-C - Last Filed: 06/23/21 19:29> Medical History Advance care planning Anxiety (Unknown) Breast cancer (1979) Cataracts, bilateral (~2000) Chickenpox (Unknown) Dementia Depression (Unknown) Diabetes (Unknown) Fecal incontinence (2015) Fibromyalgia (Unknown) Generalized headaches (Unknown) Hoarseness Hypercholesterolemia (Unknown) Malaria (Unknown) Memory impairment (07/13/16) Memory loss (Unknown) Migraines (Unknown) Mumps (Unknown) Poor short term memory Stiff neck (09/10/17) Type 2 diabetes mellitus without complication, without long-term current use of insulin (09/10/17) Urinary incontinence (1999) Surgical History History of tonsillectomy Status post appendectomy Status post dilation and curettage Family History Father Heart disease Social History marital status: lives independently: Yes caregiver/support person: Yes education level: master's degree Smoking Status: Never smoker alcohol intake: current substance use type: does not use Smoking Status: Never smoker alcohol intake frequency: 0-2 drinks per day Substance Use Type: does not use Exam <Ken Mayfield PA-C - Last Filed: 06/23/21 19:29> Initial Vital Signs Initial Vital Signs: Vital Signs Temperature 96.9 F L 06/23/21 15:15 Pulse Rate 60 06/23/21 15:15 Respiratory Rate 18 06/23/21 15:15 Blood Pressure 150/69 H 06/23/21 15:15 Pulse Oximetry 96 06/23/21 15:15 Const General: lethargic Nutritional Appearance: average body habitus HENMT Head: normal to inspection, normocephalic and atraumatic Ears: external ears normal Nose: external nose normal, nares normal and nasal mucous membranes and turbinates normal Face and sinus: face symmetric Mouth: oral mucosae normal Teeth and gingiva: dentition normal Eyes General: appearance normal, both eyes and all related structures Neck Neck: normal visual inspection Chest Chest: normal inspection of the chest and normal palpation of entire chest wall Resp Effort & Inspection: normal respiratory effort Auscultation: clear to auscultation bilaterally Percussion: percussion normal Cardio Palpation: normal PMI Rate: regular rate Rhythm: regular rhythm Heart Sounds: S1 normal and S2 normal GI Inspection: normal to inspection Palpation: soft Percussion: normal to percussion Auscultation: normal bowel sounds Neuro General: patient confused <Sue White DO - Last Filed: 06/23/21 23:26> Initial Vital Signs Initial Vital Signs: Vital Signs Temperature 96.9 F L 06/23/21 15:15 Pulse Rate 60 06/23/21 15:15 Respiratory Rate 18 06/23/21 15:15 Blood Pressure 150/69 H 06/23/21 15:15 Pulse Oximetry 96 06/23/21 15:15 Course <Ken Mayfield PA-C - Last Filed: 06/23/21 19:29> Orders Ordered: ED Orders 06/23/21 16:23 CT head/brain wo con Stat 06/23/21 16:30 CT cervical spine wo con Stat 06/23/21 16:55 CBC Auto Diff [Complete Blood Count AUTO DIFF] Stat CMP [Comprehensive Metabolic Panel] Stat Troponin & CK Cardiac Panel Stat 06/23/21 17:58 EKG-12 Lead Stat 06/23/21 19:10 UA Complete [Urinalysis and Microscopic] Stat Discontinued Medications Sodium Chloride (Normal Saline 0.9%) 1,000 mls @ 1,000 mls/hr IV BOLUS PRN PRN Reason: Fluid replacement Reevaluation(s) Reevaluation #1: Patient was awake however extremely confused was trying to climb out of bed. Nursing staff to assist vital signs are stable Vital Signs Vital signs: Vital Signs - 8 hr 06/23/21 15:15 Temperature 96.9 F L Pulse Rate 60 Respiratory Rate 18 Blood Pressure 150/69 H Pulse Oximetry 96 <Sue White DO - Last Filed: 06/23/21 23:26> Orders Ordered: ED Orders 06/23/21 16:23 CT head/brain wo con Stat 06/23/21 16:30 CT cervical spine wo con Stat 06/23/21 16:55 CBC Auto Diff [Complete Blood Count AUTO DIFF] Stat CMP [Comprehensive Metabolic Panel] Stat Troponin & CK Cardiac Panel Stat 06/23/21 17:58 EKG-12 Lead Stat 06/23/21 19:10 UA Complete [Urinalysis and Microscopic] Stat Discontinued Medications Sodium Chloride (Normal Saline 0.9%) 1,000 mls @ 1,000 mls/hr IV BOLUS PRN PRN Reason: Fluid replacement Vital Signs Vital signs: Vital Signs - 8 hr 06/23/21 15:15 Temperature 96.9 F L Pulse Rate 60 Respiratory Rate 18 Blood Pressure 150/69 H Pulse Oximetry 96 MDM - Fall <Ken Mayfield PA-C - Last Filed: 06/23/21 19:29> Differential Diagnosis Differential diagnosis: Likely other Lab Data Result diagrams: 06/23/21 16:55 06/23/21 16:55 Labs: Lab Results 06/23/21 06/23/21 06/23/21 Range/Units 16:55 16:55 16:55 WBC 6.5 (4.5-11.0) X10^3/uL RBC 4.50 (4.0-5.2) X10^6/uL Hgb 13.6 (12.0-16.0) g/dL Hct 40.0 (36-46) % MCV 88.8 (80-100) fL MCH 30.1 (26-34) PG MCHC 33.9 (30-36) % RDW 14.5 (11.6-14.8) % Plt Count 237 (150-400) X10^3/uL Neut % (Auto) 62.7 (50-75) % Lymph % (Auto) 26.7 (25-40) % [facility] % (Auto) 5.9 (3-14) % Eos % (Auto) 3.7 (2-4) % Baso % (Auto) 1.0 (0-2) % Neut # (Auto) 4100 (4681-1812) /uL Lymph # (Auto) 1700 (9939-8955) /uL [facility] # (Auto) 400 (0-900) /uL Eos # (Auto) 200 (0-450) /uL Baso # (Auto) 100 (0-100) /uL Sodium 134 L (137-145) mmol/L Potassium 4.4 (3.4-5.1) mmol/L Chloride 103 (98-107) mmol/L Carbon Dioxide 30 (22-32) mmol/L BUN 13 (7-17) mg/dL Creatinine 0.69 (0.52-1.04) mg/dL Estimated GFR > 60.0 (>60) mL/min BUN/Creatinine Ratio 18.8 (6-22) Glucose 292 H (80-110) mg/dL Calcium 8.5 (8.4-10.2) mg/dL Total Bilirubin 0.9 (0.2-1.3) mg/dL AST 27 (14-36) IU/L ALT 12 (<35) IU/L Alkaline Phosphatase 83 (38-126) U/L Total Creatine Kinase 31 (30-135) U/L CK-MB (CK-2) TNP CK-MB (CK-2) Rel Index TNP Troponin I < 0.012 (0.01-0.034) ng/mL Total Protein 6.2 L (6.3-8.2) g/dL Albumin 3.6 (3.5-5.0) g/dL Globulin 2.6 (1.7-4.1) g/dL Albumin/Globulin Ratio 1.4 (1.0-2.8) Urine Color Urine Appearance Urine pH (4.5-8.0) Ur Specific C[place] (1.000-1.035) Urine Protein (Negative) Urine Glucose (UA) (Negative) g/dL Urine Ketones (NEGATIVE) Urine Occult Blood (Negative) Urine Nitrate (Negative) Urine Bilirubin (NEGATIVE) Urine Urobilinogen (0.2) E.U./dL Ur Leukocyte Esterase (NEGATIVE) Urine RBC (0-5/HPF) Urine WBC (0-5/HPF) Ur Squamous Epith Cells (0-5/HPF) Ur Transition Epith Cell (0-5/HPF) Urine Bacteria (None) Ur Culture Indicated? 06/23/21 Range/Units 19:10 WBC (4.5-11.0) X10^3/uL RBC (4.0-5.2) X10^6/uL Hgb (12.0-16.0) g/dL Hct (36-46) % MCV (80-100) fL MCH (26-34) PG MCHC (30-36) % RDW (11.6-14.8) % Plt Count (150-400) X10^3/uL Neut % (Auto) (50-75) % Lymph % (Auto) (25-40) % [facility] % (Auto) (3-14) % Eos % (Auto) (2-4) % Baso % (Auto) (0-2) % Neut # (Auto) (3407-4179) /uL Lymph # (Auto) (3415-2521) /uL [facility] # (Auto) (0-900) /uL Eos # (Auto) (0-450) /uL Baso # (Auto) (0-100) /uL Sodium (137-145) mmol/L Potassium (3.4-5.1) mmol/L Chloride (98-107) mmol/L Carbon Dioxide (22-32) mmol/L BUN (7-17) mg/dL Creatinine (0.52-1.04) mg/dL Estimated GFR (>60) mL/min BUN/Creatinine Ratio (6-22) Glucose (80-110) mg/dL Calcium (8.4-10.2) mg/dL Total Bilirubin (0.2-1.3) mg/dL AST (14-36) IU/L ALT (<35) IU/L Alkaline Phosphatase (38-126) U/L Total Creatine Kinase (30-135) U/L CK-MB (CK-2) CK-MB (CK-2) Rel Index Troponin I (0.01-0.034) ng/mL Total Protein (6.3-8.2) g/dL Albumin (3.5-5.0) g/dL Globulin (1.7-4.1) g/dL Albumin/Globulin Ratio (1.0-2.8) Urine Color Yellow Urine Appearance Clear Urine pH 6.0 (4.5-8.0) Ur Specific [place] 1.010 (1.000-1.035) Urine Protein Negative (Negative) Urine Glucose (UA) 1+ H (Negative) g/dL Urine Ketones Negative (NEGATIVE) Urine Occult Blood Negative (Negative) Urine Nitrate Negative (Negative) Urine Bilirubin Negative (NEGATIVE) Urine Urobilinogen 0.2 (0.2) E.U./dL Ur Leukocyte Esterase Negative (NEGATIVE) Urine RBC 0-1/hpf (0-5/HPF) Urine WBC 0-1/hpf (0-5/HPF) Ur Squamous Epith Cells 0-1 /hpf (0-5/HPF) Ur Transition Epith Cell 0-1/hpf (0-5/HPF) Urine Bacteria None seen (None) Ur Culture Indicated? Cult not indicated Point of Care Testing Glucose POC 304 MDM Narrative Medical decision making narrative: Patient was evaluated today for a ground level fall that she sustained at her residential unit. She has been confused and not able to answer any questions while here and she has remained stable the entire time. <Sue White, DO - Last Filed: 06/23/21 23:26> Lab Data Labs: Lab Results 06/23/21 06/23/21 06/23/21 Range/Units 16:55 16:55 16:55 WBC 6.5 (4.5-11.0) X10^3/uL RBC 4.50 (4.0-5.2) X10^6/uL Hgb 13.6 (12.0-16.0) g/dL Hct 40.0 (36-46) % MCV 88.8 (80-100) fL MCH 30.1 (26-34) PG MCHC 33.9 (30-36) % RDW 14.5 (11.6-14.8) % Plt Count 237 (150-400) X10^3/uL Neut % (Auto) 62.7 (50-75) % Lymph % (Auto) 26.7 (25-40) % [facility] % (Auto) 5.9 (3-14) % Eos % (Auto) 3.7 (2-4) % Baso % (Auto) 1.0 (0-2) % Neut # (Auto) 4100 (3349-3420) /uL Lymph # (Auto) 1700 (2844-8623) /uL [facility] # (Auto) 400 (0-900) /uL Eos # (Auto) 200 (0-450) /uL Baso # (Auto) 100 (0-100) /uL Sodium 134 L (137-145) mmol/L Potassium 4.4 (3.4-5.1) mmol/L Chloride 103 (98-107) mmol/L Carbon Dioxide 30 (22-32) mmol/L BUN 13 (7-17) mg/dL Creatinine 0.69 (0.52-1.04) mg/dL Estimated GFR > 60.0 (>60) mL/min BUN/Creatinine Ratio 18.8 (6-22) Glucose 292 H (80-110) mg/dL Calcium 8.5 (8.4-10.2) mg/dL Total Bilirubin 0.9 (0.2-1.3) mg/dL AST 27 (14-36) IU/L ALT 12 (<35) IU/L Alkaline Phosphatase 83 (38-126) U/L Total Creatine Kinase 31 (30-135) U/L CK-MB (CK-2) TNP CK-MB (CK-2) Rel Index TNP Troponin I < 0.012 (0.01-0.034) ng/mL Total Protein 6.2 L (6.3-8.2) g/dL Albumin 3.6 (3.5-5.0) g/dL Globulin 2.6 (1.7-4.1) g/dL Albumin/Globulin Ratio 1.4 (1.0-2.8) Urine Color Urine Appearance Urine pH (4.5-8.0) Ur Specific C[place] (1.000-1.035) Urine Protein (Negative) Urine Glucose (UA) (Negative) g/dL Urine Ketones (NEGATIVE) Urine Occult Blood (Negative) Urine Nitrate (Negative) Urine Bilirubin (NEGATIVE) Urine Urobilinogen (0.2) E.U./dL Ur Leukocyte Esterase (NEGATIVE) Urine RBC (0-5/HPF) Urine WBC (0-5/HPF) Ur Squamous Epith Cells (0-5/HPF) Ur Transition Epith Cell (0-5/HPF) Urine Bacteria (None) Ur Culture Indicated? 06/23/21 Range/Units 19:10 WBC (4.5-11.0) X10^3/uL RBC (4.0-5.2) X10^6/uL Hgb (12.0-16.0) g/dL Hct (36-46) % MCV (80-100) fL MCH (26-34) PG MCHC (30-36) % RDW (11.6-14.8) % Plt Count (150-400) X10^3/uL Neut % (Auto) (50-75) % Lymph % (Auto) (25-40) % [facility] % (Auto) (3-14) % Eos % (Auto) (2-4) % Baso % (Auto) (0-2) % Neut # (Auto) (4613-8376) /uL Lymph # (Auto) (3553-4805) /uL [facility] # (Auto) (0-900) /uL Eos # (Auto) (0-450) /uL Baso # (Auto) (0-100) /uL Sodium (137-145) mmol/L Potassium (3.4-5.1) mmol/L Chloride (98-107) mmol/L Carbon Dioxide (22-32) mmol/L BUN (7-17) mg/dL Creatinine (0.52-1.04) mg/dL Estimated GFR (>60) mL/min BUN/Creatinine Ratio (6-22) Glucose (80-110) mg/dL Calcium (8.4-10.2) mg/dL Total Bilirubin (0.2-1.3) mg/dL AST (14-36) IU/L ALT (<35) IU/L Alkaline Phosphatase (38-126) U/L Total Creatine Kinase (30-135) U/L CK-MB (CK-2) CK-MB (CK-2) Rel Index Troponin I (0.01-0.034) ng/mL Total Protein (6.3-8.2) g/dL Albumin (3.5-5.0) g/dL Globulin (1.7-4.1) g/dL Albumin/Globulin Ratio (1.0-2.8) Urine Color Yellow Urine Appearance Clear Urine pH 6.0 (4.5-8.0) Ur Specific [place] 1.010 (1.000-1.035) Urine Protein Negative (Negative) Urine Glucose (UA) 1+ H (Negative) g/dL Urine Ketones Negative (NEGATIVE) Urine Occult Blood Negative (Negative) Urine Nitrate Negative (Negative) Urine Bilirubin Negative (NEGATIVE) Urine Urobilinogen 0.2 (0.2) E.U./dL Ur Leukocyte Esterase Negative (NEGATIVE) Urine RBC 0-1/hpf (0-5/HPF) Urine WBC 0-1/hpf (0-5/HPF) Ur Squamous Epith Cells 0-1 /hpf (0-5/HPF) Ur Transition Epith Cell 0-1/hpf (0-5/HPF) Urine Bacteria None seen (None) Ur Culture Indicated? Cult not indicated Point of Care Testing Glucose POC 304 Discharge Plan Departure Patient Disposition: Home Clinical Impression: Dementia, Fall Instructions: How to Prevent Falls Activity Restrictions/Additional Instructions: Patient was evaluated for ground level fall. No identifiable fractures or injury was found. Patient will return back to residential unit via EMS. Prescriptions: No Action magnesium hydroxide [Milk of Magnesia] 400 mg/5 mL suspension 30 ml PO DAILY PRN (Reason: constipation) Qty: 3000 3RF Rx Instructions: Give 30ml of milk of magnesia or generic equivalent by mouth if no BM in 3 days or for complaint of constipation PRN. If ineffective after 24 hours, give bisacodyl suppository per order bisacodyl 5 mg tablet 10 mg PO BEDTIME PRN (Reason: constipation) Qty: 30 3RF Rx Instructions: Take Bisacodyl 5mg, 2 tablets by mouth for constipation not relieved by MOM. If ineffective after 24 hours notify MD acetaminophen 325 mg capsule 650 mg PO Q4H PRN (Reason: fever or pain) Qty: 30 3RF Rx Instructions: Give 2 tablets (650mg) by mouth every four hours as needed for complaints of mild/moderate headaches, musculoskeletal pain or fever>100F. If pain is not relieved or fever not <100 in 4 hours, notify MD. Do not exceed 3000mg APAP/24 hours from all sources. divalproex 125 mg capsule, delayed rel sprinkle 125 mg PO ONCE Qty: 180 3RF Rx Instructions: Take 1 cap at bedtime daily, may repeat 1x/24 hours as needed for agitation donepezil 10 mg tablet 10 mg PO BEDTIME Qty: 90 3RF Rx Instructions: Take 1 tab by mouth daily for confusion oxycodone 5 mg capsule 5 mg PO TID PRN (Reason: rib pain) Qty: 14 0RF cephalexin 500 mg capsule 500 mg PO BID 7 Days Qty: 14 0RF <Sue White DO - Last Filed: 06/23/21 23:26> Cosign ED Attending Demarco Attestation: I was immediately available in the department for consultation. Documentation has been reviewed. I agree with assessment and plan.
--- NOTE | 2021-06-23 16:30 | DI.CT.S_ITS ---
PROCEDURE: CT CERVICAL SPINE WO CON INDICATIONS: fall TECHNIQUE: Noncontrast 3 mm thick sections acquired from the skull base to the T4 level. Sagittal and coronal reformats were then constructed. For radiation dose reduction, the following was used: automated exposure control, adjustment of mA and/or kV according to patient size. COMPARISON: [facility], CT, CT CERVICAL SPINE WO CON, 06/17/2021, 17:30. FINDINGS: Image quality: Excellent. Bones: No fractures or dislocations. Visualized superior ribs are intact. Multilevel disc space narrowing and endplate osteophyte formation. Facet hypertrophy throughout the mid and lower cervical spine. Soft tissues: Prevertebral soft tissues are normal in thickness. No paravertebral hematomas. No apical pneumothoraces. IMPRESSION: 1. Multilevel degenerative disc and facet disease. 2. No fracture. Dictated by: Bijal Garg M.D. on 06/23/2021 at 16:47 Approved by: Bijal Garg M.D. on 06/23/2021 at 16:57
[2021-06-23 17:06] LABS: Add Manual Diff / Slide Review NO; Basophils Absolute Auto 100 /uL (0-100); Eosinophils Absolute Auto 200 /uL (0-450); Eosinophils Percent Auto 3.7 % (2-4); Hemoglobin 13.6 g/dL (12.0-16.0); Lymphocytes Absolute Auto 1700 /uL (1100-4500); Lymphocytes Percent Auto 26.7 % (25-40); Mean Corpuscular HGB Conc 33.9 % (30-36); Mean Corpuscular Hemoglobin 30.1 PG (26-34); Mean Corpuscular Volume 88.8 fL (80-100); Monocytes Absolute Auto 400 /uL (0-900); Monocytes Percent Auto 5.9 % (3-14); Neutrophils Absolute Auto 4100 /uL (1500-7000); Neutrophils Percent Auto 62.7 % (50-75); Platelet Count 237 X10^3/uL (150-400); Red Cell Distribution Width 14.5 % (11.6-14.8); White Blood Cell Count 6.5 X10^3/uL (4.5-11.0)
[2021-06-23 17:28] LABS: Creatine Kinase 31 U/L (30-135)
[2021-06-23 17:29] LABS: Alanine Aminotransferase 12 IU/L (<35); Albumin 3.6 g/dL (3.5-5.0); Albumin Globulin Ratio 1.4 (1.0-2.8); Alkaline Phosphatase 83 U/L (38-126); Aspartate Aminotransferase 27 IU/L (14-36); BUN Creatinine Ratio 18.8 (6-22); Bilirubin Total 0.9 mg/dL (0.2-1.3); Blood Urea Nitrogen 13 mg/dL (7-17); Calcium 8.5 mg/dL (8.4-10.2); Carbon Dioxide 30 mmol/L (22-32); Chloride 103 mmol/L (98-107); Estimated Glomerular Filt Rate > 60.0 mL/min (>60); Globulin 2.6 g/dL (1.7-4.1); Glucose 292 mg/dL (80-110); Potassium 4.4 mmol/L (3.4-5.1); Sodium 134 mmol/L (137-145); Total Protein 6.2 g/dL (6.3-8.2)
[2021-06-23 17:39] LABS: HEMOLYSIS 63 (0-50); Troponin I < 0.012 ng/mL (0.01-0.034)
[2021-06-23 19:25] LABS: Appearance Urine UA CLEAR; Bilirubin Urine UA NEGATIVE (NEGATIVE); Color Urine UA YELLOW; Glucose Urine UA 1+ g/dL (Negative); Ketones Urine UA NEGATIVE (NEGATIVE); Leukocyte Esterase Urine UA NEGATIVE (NEGATIVE); Nitrite Urine UA NEGATIVE (Negative); Occult Blood Urine UA NEGATIVE (Negative); Protein Urine UA NEGATIVE (Negative); Urobilinogen Urine UA 0.2 E.U./dL (0.2)
[2021-06-23 19:36] LABS: Bacteria Urine None Seen; Culture Indicated Urine Cult Not Indicated; RBC Urine 0-1/HPF (0-5/HPF); Squamous Epithelial Cell Urine 0-1 /HPF (0-5/HPF); Transitional Epi Cells Urine 0-1/HPF (0-5/HPF); WBC Urine 0-1/HPF (0-5/HPF)
== END 2021-06-23 20:04 | disposition home or self-care (01) ==
PROVIDERS: Emergency Provider Physician Assistant
DX: F03.90 Unspecified dementia, unspecified severity, without behavioral disturbance, psychotic disturbance, mood disturbance, and anxiety (principal); W18.30XA Fall on same level, unspecified, initial encounter; R03.0 Elevated blood-pressure reading, without diagnosis of hypertension
CPT/HCPCS: 36415; 70450; 72125; 80053; 81001; 82550; 82962; 84484; 85025; 93005; 93010; 99284

== ENCOUNTER 2021-06-28 10:43 | Emergency (ER) | payer MEDICARE, OTHER, SELFPAY ==
[2021-06-28] VITALS (8 sets, daily range): BP systolic 126–148; BP diastolic 60–72; PULSE 68–77; RESP 15–20; TEMP 36.4–36.6; O2SAT 94–99
[2021-06-28 11:01] LABS: Add Manual Diff / Slide Review NO; Basophils Absolute Auto 100 /uL (0-100); Basophils Percent Auto 0.7 % (0-2); Eosinophils Absolute Auto 100 /uL (0-450); Eosinophils Percent Auto 1.1 % (2-4); Hematocrit 40.8 % (36-46); Hemoglobin 13.8 g/dL (12.0-16.0); Lymphocytes Absolute Auto 1800 /uL (1100-4500); Lymphocytes Percent Auto 22.6 % (25-40); Mean Corpuscular HGB Conc 33.8 % (30-36); Mean Corpuscular Volume 88.8 fL (80-100); Monocytes Absolute Auto 500 /uL (0-900); Monocytes Percent Auto 5.9 % (3-14); Neutrophils Absolute Auto 5600 /uL (1500-7000); Neutrophils Percent Auto 69.7 % (50-75); Platelet Count 241 X10^3/uL (150-400); Red Cell Distribution Width 14.3 % (11.6-14.8); White Blood Cell Count 8.1 X10^3/uL (4.5-11.0)
[2021-06-28 11:07] LABS: BUN Creatinine Ratio 18.9 (6-22); Blood Urea Nitrogen 14 mg/dL (7-17); Carbon Dioxide 29 mmol/L (22-32); Chloride 103 mmol/L (98-107); Estimated Glomerular Filt Rate > 60.0 mL/min (>60); Glucose 244 mg/dL (80-110); HEMOLYSIS 16 (0-50); Potassium 3.9 mmol/L (3.4-5.1); Sodium 137 mmol/L (137-145)
--- NOTE | 2021-06-28 12:05 | PC.NURSE ---
[facility] to call us back for report and to recieve patient
--- NOTE | 2021-06-28 12:13 | DI.RAD.S_ITS ---
PROCEDURE: XR ACUTE ABDOMEN SERIES INDICATIONS: altered TECHNIQUE: One view chest and two views of the abdomen were acquired. COMPARISON: None. FINDINGS: Surgical changes and devices: Tiny metal sutures of probable remote appendectomy.. Chest: Diffuse interstitial prominence throughout the lungs. Alveolar opacity at both lung bases. No significant pleural effusions. Heart size is enlarged. Aortic contour is normal. Abdomen: Bowel gas pattern is within normal limits, the demonstrates solid stool throughout the colon. There is a collection of calcifications projecting in the region of the gallbladder fundus. Organ shadows are within normal limits. Bones: Multilevel degenerative changes in the spine. No obvious pelvic fractures. IMPRESSION: 1. Nonobstructive small bowel gas pattern and normal amount of solid stool present in the colon. 2. Diffuse interstitial thickening in both lungs and possible small lower lung airspace opacities. This may be infections or evidence of mild edema. 3. The heart appears enlarged compared to prior studies. Dictated by: Aniyah Gilbert M.D. on 06/28/2021 at 13:30 Approved by: Aniyah Gilbert M.D. on 06/28/2021 at 13:38
[2021-06-28 12:34] LABS: Creatine Kinase 39 U/L (30-135)
[2021-06-28 12:47] LABS: Troponin I < 0.012 ng/mL (0.01-0.034)
--- NOTE | 2021-06-28 13:42 | ED_ITS ---
HPI - Weakness General Chief complaint: Urogenital-Female Stated complaint: UTI, AMS Time Seen by Provider: 06/28/21 10:44 Source: EMS Mode of arrival: EMS History of Present Illness HPI Narrative: 86F nonsmoker with history of dementia presents with EMS from her nursing facility for evaluation of an episode of perceived pain just prior to arrival. Per medics she was writhing in pain and yelling out, this had resolved completely prior to arrival without any specific treatment. She has had no falls or known injuries. She is otherwise at baseline per medics and other staff. She has had no nausea, vomiting or diarrhea. She has had recent treatment of urinary tract infection so there is concern of a persistent UTI. Related Data Previous Rx's Medication Instructions Recorded donepezil 10 mg tablet 10 mg PO BEDTIME #90 tab 05/24/20 divalproex 125 mg capsule,delayed 125 mg PO ONCE #180 cap 06/14/20 release sprinkle acetaminophen 325 mg capsule 650 mg PO Q4H PRN #30 cap 08/08/20 bisacodyl 5 mg tablet 10 mg PO BEDTIME PRN #30 tab 08/08/20 magnesium hydroxide 400 mg/5 mL 30 ml PO DAILY PRN #3000 ml 08/08/20 oral suspension (Milk of Magnesia) oxycodone 5 mg capsule 5 mg PO TID PRN #14 cap 12/31/20 Allergies Allergy/AdvReac Type Severity Reaction Status Date / Time No Known Drug Allergies Allergy Verified 06/28/21 10:49 Review of Systems Review of Systems ROS Unobtainable: Unobtainable due to mental status/LOC Patient History Medical History Advance care planning Anxiety (Unknown) Breast cancer (1979) Cataracts, bilateral (~1999) Chickenpox (Unknown) Dementia Depression (Unknown) Diabetes (Unknown) Fecal incontinence (2015) Fibromyalgia (Unknown) Generalized headaches (Unknown) Hoarseness Hypercholesterolemia (Unknown) Malaria (Unknown) Memory impairment (07/13/16) Memory loss (Unknown) Migraines (Unknown) Mumps (Unknown) Poor short term memory Stiff neck (09/10/17) Type 2 diabetes mellitus without complication, without long-term current use of insulin (09/10/17) Urinary incontinence (1999) Surgical History History of tonsillectomy Status post appendectomy Status post dilation and curettage Family History Father Heart disease Social History marital status: lives independently: Yes caregiver/support person: Yes education level: master's degree Smoking Status: Never smoker alcohol intake: current substance use type: does not use Smoking Status: Never smoker alcohol intake frequency: 0-2 drinks per day Substance Use Type: does not use Exam Narrative Exam Narrative: GENERAL: [86] year old patient appears stated age. Well-developed patient, in no obvious distress, pleasantly confused HEAD: Atraumatic. Normocephalic. EYES: Pupils equal round and reactive. Extraocular motions intact. No scleral icterus. No injection or drainage. ENT: Nose without bleeding, purulent drainage. Throat without erythema, tonsillar hypertrophy or exudate. Airway patent. NECK: Trachea midline. Non tender CARDIOVASCULAR: Regular rate and rhythm without murmurs, gallops, or rubs. RESPIRATORY: Clear to auscultation. Breath sounds equal bilaterally. No wheezes, rales, or rhonchi. No increased work of breathing, cough, tachypnea or hypoxemia GASTROINTESTINAL: Abdomen soft, non-tender, nondistended. EXTREMITIES: No edema or joint tenderness. BACK: Nontender without deformity or crepitance. No flank tenderness. SKIN: No rash or erythema of visible areas Initial Vital Signs Initial Vital Signs: Vital Signs Temperature 97.5 F L 06/28/21 10:45 Pulse Rate 76 06/28/21 10:45 Respiratory Rate 15 06/28/21 10:45 Blood Pressure 126/60 06/28/21 10:45 Pulse Oximetry 95 06/28/21 10:45 Course Orders Ordered: ED Orders 06/28/21 10:51 BMP [Basic Metabolic Panel] Stat CBC Auto Diff [Complete Blood Count AUTO DIFF] Stat Troponin & CK Cardiac Panel Stat 06/28/21 12:13 XR acute abdomen series Stat Vital Signs Vital signs: Vital Signs - 8 hr 06/28/21 10:45 06/28/21 10:58 06/28/21 11:00 Temperature 97.5 F L Pulse Rate 77 73 Respiratory Rate 18 20 Blood Pressure 126/60 130/62 Pulse Oximetry 95 94 06/28/21 11:05 06/28/21 11:30 06/28/21 11:57 Temperature Pulse Rate 70 71 68 Respiratory Rate 20 17 Blood Pressure 127/62 127/62 Pulse Oximetry 95 95 98 06/28/21 12:42 Temperature Pulse Rate 74 Respiratory Rate 17 Blood Pressure 148/64 H Pulse Oximetry 99 MDM - Weakness Lab Data Result diagrams: 06/28/21 10:51 06/28/21 10:51 Labs: Lab Results 06/28/21 06/28/21 06/28/21 Range/Units 10:51 10:51 10:51 WBC 8.1 (4.5-11.0) X10^3/uL RBC 4.60 (4.0-5.2) X10^6/uL Hgb 13.8 (12.0-16.0) g/dL Hct 40.8 (36-46) % MCV 88.8 (80-100) fL MCH 30.0 (26-34) PG MCHC 33.8 (30-36) % RDW 14.3 (11.6-14.8) % Plt Count 241 (150-400) X10^3/uL Neut % (Auto) 69.7 (50-75) % Lymph % (Auto) 22.6 L (25-40) % [place] % (Auto) 5.9 (3-14) % Eos % (Auto) 1.1 L (2-4) % Baso % (Auto) 0.7 (0-2) % Neut # (Auto) 5600 (0411-8041) /uL Lymph # (Auto) 1800 (4843-5358) /uL [place] # (Auto) 500 (0-900) /uL Eos # (Auto) 100 (0-450) /uL Baso # (Auto) 100 (0-100) /uL Sodium 137 (137-145) mmol/L Potassium 3.9 (3.4-5.1) mmol/L Chloride 103 (98-107) mmol/L Carbon Dioxide 29 (22-32) mmol/L BUN 14 (7-17) mg/dL Creatinine 0.74 (0.52-1.04) mg/dL Estimated GFR > 60.0 (>60) mL/min BUN/Creatinine Ratio 18.9 (6-22) Glucose 244 H (80-110) mg/dL Calcium 9.0 (8.4-10.2) mg/dL Total Creatine Kinase 39 (30-135) U/L CK-MB (CK-2) TNP CK-MB (CK-2) Rel Index TNP Troponin I < 0.012 (0.01-0.034) ng/mL Urine Dip Bedside Urine Glucose 500 mg/dl Bedside Urine Bilirubin - Negative Bedside Urine Ketone - Negative Urine Specific [place] 1.025 Bedside Urine Occult Blood - Negative Bedside Urine pH 6.0 Bedside Urine Protein - Negative Bedside Urine Urobilinogen - Negative Bedside Urine Nitrite - Negative Bedside Urine Leukocytes - Negative Esterase Imaging Data Chest x-ray: Radiologist Impression: Vickie Alston??86??F??1935 ? Allergy/Adv: No Known Drug Allergies (More??) Close Chest/Abdomen X-ray (Signed) Aniyah Gilbert - 06/28/[address] (Signed) Bijal Garg - 06/23/[address] (Signed) JacksonStiven marquez - 06/23/21 Knee X-Ray (Signed) Piyush Sumner - 06/21/21 Hip X-Ray (Signed) Shawn Meadows - 06/21/[address] (Signed) JacksonStiven marquez - 06/17/[address] (Signed) Jackson,Stiven - 06/17/21 Hand X-Ray (Signed) Tolentino,Drew - 03/18/[address] (Signed) Tolentino,Drew 03/18/[address] (Signed) Tolentino,Drew - 03/18/[address] (Signed) Maryam Riojas - 02/23/[address] (Signed) Reagan,Kyrie - 02/22/21 Hip X-Ray (Signed) Reagan,Kyrie - 02/22/[address] (Signed) [place],Kyrie - 02/22/21 Peripheral Vascular Ultrasound (Signed) Shine,Maryam - 01/23/[address] (Signed) Middleton,Rufus - 01/23/[address] (Signed) Middleton,Rufus - 01/23/21 Chest X-Ray (Signed) Middleton,Rufus - 01/23/21 Pelvis X-Ray (Signed) VladimirAniyah - 01/12/21 Femur X-Ray (Signed) Aniyah Gilbert - 01/12/[address] (Signed) VladimirAniyah - 01/12/[address] (Signed) Liang Valentin - 01/07/[address] (Signed) Liang Valentin - 01/07/21 Ribs X-Ray (Signed) Liang Valentin - 01/07/[address] (Signed) Piyush Sumner - 12/31/20 Ribs X-Ray (Signed) Stiven Jackson - 12/31/[address] (Signed) Rufus Middleton - 11/22/20 Mammogram Screening (Signed) Piyush Sumner - 07/20/[address] (Signed) Maryam Riojas - 06/08/20 Peripheral Vascular Ultrasound (Signed) Rufus Middleton - 01/23/19 [address]?[place] [address] XRay Report Signed Patient: Vickie Alston MR#: [id number] : 1935 Acct:[id number] Age/Sex: 86 / F Date of Service: 06/28/21 Loc: ED Accession Number: [id number] ?? Procedure: XR acute abdomen series Ordering Provider: Wally Nieto D.O. PROCEDURE:? XR ACUTE ABDOMEN SERIES ? INDICATIONS:? altered ? TECHNIQUE:? One view chest and two views of the abdomen were acquired.? ? COMPARISON:? None. ? FINDINGS:? ? Surgical changes and devices:? Tiny metal sutures of probable remote appendectomy..? ? Chest:? Diffuse interstitial prominence throughout the lungs.? Alveolar opacity at both lung bases.? No significant pleural effusions.? Heart size is enlarged.? Aortic contour is normal. ? Abdomen:? Bowel gas pattern is within normal limits, the demonstrates solid stool throughout the colon.? There is a collection of calcifications projecting in the region of the gallbladder fundus.? Organ shadows are within normal limits. ? Bones:? Multilevel degenerative changes in the spine.? No obvious pelvic fractures. ? IMPRESSION:? ? 1. Nonobstructive small bowel gas pattern and normal amount of solid stool present in the colon. ? 2. Diffuse interstitial thickening in both lungs and possible small lower lung airspace opacities.? This may be infections or evidence of mild edema. ? 3. The heart appears enlarged compared to prior studies.? ? ? Dictated by: Aniyah Gilbert M.D. on 06/28/2021 at 13:30 ? ? Approved by: Aniyah Gilbert M.D. on 06/28/2021 at 13:38 ? MDM Narrative Medical decision making narrative: Patient has a reassuring history and physical exam. She is at her relative baseline per multiple staff members that know her as well as medics. Labs are very reassuring, urine shows no sign of infection, chest x-ray does show some mild airspace and interstitial thickening, however she has no fever, no cough or crackles, no hypoxemia or increased work of breathing. There is no sign of an obvious reversible cause of her episode earlier. Return precautions given to nursing staff Discharge Plan Departure Patient Disposition: Home Clinical Impression: Feared complaint without diagnosis Activity Restrictions/Additional Instructions: There is no evidence of an emergent or life threatening illness at this time, but follow up with your doctor in 1-2 days is recommended nonetheless to continue to rule out serious underlying causes of your symptoms. Please call the office for an appointment. Please return to the Emergency Department for any worsening or persistent symptoms. Please take medications as directed. Prescriptions: No Action magnesium hydroxide [Milk of Magnesia] 400 mg/5 mL suspension 30 ml PO DAILY PRN (Reason: constipation) Qty: 3000 3RF Rx Instructions: Give 30ml of milk of magnesia or generic equivalent by mouth if no BM in 3 days or for complaint of constipation PRN. If ineffective after 24 hours, give bisacodyl suppository per order bisacodyl 5 mg tablet 10 mg PO BEDTIME PRN (Reason: constipation) Qty: 30 3RF Rx Instructions: Take Bisacodyl 5mg, 2 tablets by mouth for constipation not relieved by MOM. If ineffective after 24 hours notify acetaminophen 325 mg capsule 650 mg PO Q4H PRN (Reason: fever or pain) Qty: 30 3RF Rx Instructions: Give 2 tablets (650mg) by mouth every four hours as needed for complaints of mild/moderate headaches, musculoskeletal pain or fever>100F. If pain is not relieved or fever not <100 in 4 hours, notify MD. Do not exceed 3000mg APAP/24 hours from all sources. divalproex 125 mg capsule, delayed rel sprinkle 125 mg PO ONCE Qty: 180 3RF Rx Instructions: Take 1 cap at bedtime daily, may repeat 1x/24 hours as needed for agitation donepezil 10 mg tablet 10 mg PO BEDTIME Qty: 90 3RF Rx Instructions: Take 1 tab by mouth daily for confusion oxycodone 5 mg capsule 5 mg PO TID PRN (Reason: rib pain) Qty: 14 0RF
--- NOTE | 2021-06-28 13:53 | PC.NURSE ---
phone report to maia nurse/rn at [facility] [phone]
== END 2021-06-28 14:10 | disposition home or self-care (01) ==
PROVIDERS: Emergency Provider Emergency Medicine
DX: Z03.89 Encounter for observation for other suspected diseases and conditions ruled out (principal)
CPT/HCPCS: 74022; 80048; 81003; 82550; 84484; 85025; 99284

== ENCOUNTER 2021-08-03 06:43 | Emergency (ER) | payer MEDICARE, OTHER, SELFPAY ==
[2021-08-03 06:47] VITALS: BP 126/73; PULSE 70; RESP 18; TEMP 35.6; O2SAT 99
--- NOTE | 2021-08-03 07:16 | DI.RAD.S_ITS ---
PROCEDURE: XR PELVIS 1-2V INDICATIONS: fall, trauma TECHNIQUE: AP view(s) of the pelvis acquired. COMPARISON: [facility], , XR PELVIS 1-2V, 01/12/2021, 21:02. FINDINGS: Bones: No fractures or dislocations. No suspicious bony lesions. 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 Soft tissues: Visualized bowel gas pattern is normal. No suspicious soft tissue calcifications. IMPRESSION: 1. No acute abnormality of the pelvis. 2. Degenerative changes of both hips. Dictated by: Tor Nails M.D. on 08/03/2021 at 8:20 Approved by: Tor Nails M.D. on 08/03/2021 at 8:22
--- NOTE | 2021-08-03 07:16 | DI.RAD.S_ITS ---
PROCEDURE: XR CHEST 1V INDICATIONS: fall, trauma TECHNIQUE: One view of the chest was acquired. COMPARISON: [facility], CR, XR CHEST 1V, 01/23/2021, 20:43. FINDINGS: Surgical changes and devices: None. Lungs and pleura: Lungs are clear. No pleural effusions or pneumothorax. Mediastinum: Mediastinal contours appear normal. Heart size is normal. Bones and chest wall: No suspicious bony lesions. Overlying soft tissues appear unremarkable. IMPRESSION: No acute cardiopulmonary abnormality. Dictated by: Tor Nails M.D. on 08/03/2021 at 8:23 Approved by: Tor Nails M.D. on 08/03/2021 at 8:23
--- NOTE | 2021-08-03 07:16 | DI.CT.S_ITS ---
PROCEDURE: CT HEAD/BRAIN WO CON INDICATIONS: fall TECHNIQUE: Noncontrast 4.5 mm thick angled axial sections acquired from the foramen magnum to the vertex, with coronal and sagittal reformats. For radiation dose reduction, the following was used: automated exposure control, adjustment of mA and/or kV according to patient size. COMPARISON: [facility], CT, CT HEAD/BRAIN WO CON, 06/23/2021, 16:37. FINDINGS: Image quality: Excellent. CSF spaces: Basal cisterns are patent. No extra-axial fluid collections. The ventricles are symmetric in size and shape. Brain: No intracranial bleeds or masses. There is cerebral volume loss for age, with resultant ventricular and sulcal prominence. There are periventricular and deep white matter chronic small vessel ischemic changes. There is intracranial internal carotid artery atherosclerosis. Skull and face: Calvarium and visualized facial bones appear intact, without suspicious lesions. Sinuses: Visualized sinuses and mastoids are clear. IMPRESSION: 1. No acute intracranial abnormality. 2. Cerebral volume loss and small vessel ischemic changes. Dictated by: Tor Nails M.D. on 08/03/2021 at 8:10 Approved by: Tor Nails M.D. on 08/03/2021 at 8:12
--- NOTE | 2021-08-03 07:38 | PC.NURSE ---
JAIMIE called to let us know she is unable to come in and sit with pt.
--- NOTE | 2021-08-03 07:49 | DI.CT.S_ITS ---
PROCEDURE: CT CERVICAL SPINE WO CON INDICATIONS: fall TECHNIQUE: Noncontrast 3 mm thick sections acquired from the skull base to the T4 level. Sagittal and coronal reformats were then constructed. For radiation dose reduction, the following was used: automated exposure control, adjustment of mA and/or kV according to patient size. COMPARISON: [facility], CT, CT CERVICAL SPINE WO CON, 06/23/2021, 16:37. FINDINGS: Image quality: Excellent. Bones: No fractures or dislocations. Visualized superior ribs are intact. Multilevel degenerative disc disease most prominent at C4-5 and C6-7. There is facet arthropathy at multiple levels. Soft tissues: Prevertebral soft tissues are normal in thickness. No paravertebral hematomas. No apical pneumothoraces. IMPRESSION: 1. Multilevel degenerative disc disease and facet arthropathy. 2. No acute abnormality. Dictated by: Tor Nails M.D. on 08/03/2021 at 8:12 Approved by: Tor Nails M.D. on 08/03/2021 at 8:15
--- NOTE | 2021-08-03 07:55 | ED_ITS ---
HPI - Fall General Chief Complaint: Fall Stated Complaint: GLF Time Seen by Provider: 08/03/21 07:14 Mode of arrival: EMS History of Present Illness HPI Narrative: 86-year-old female nonsmoker with history of dementia, anxiety, depression, type 2 diabetes, hyperlipidemia, fibromyalgia presents from a memory care facility for evaluation of an unwitnessed fall. There is no obvious injury and patient has no recall of the event or ability to contribute. EMS found her on the ground and attempted to help her up but she was not cooperative and therefore brought here for evaluation. There is no reported change in her medications or diet. She is a DNR with comfort measures. DPOA has been contacted by nursing Related Data Previous Rx's Medication Instructions Recorded donepezil 10 mg tablet 10 mg PO BEDTIME #90 tab 05/24/20 divalproex 125 mg capsule,delayed 125 mg PO ONCE #180 cap 06/14/20 release sprinkle acetaminophen 325 mg capsule 650 mg PO Q4H PRN #30 cap 08/08/20 bisacodyl 5 mg tablet 10 mg PO BEDTIME PRN #30 tab 08/08/20 magnesium hydroxide 400 mg/5 mL 30 ml PO DAILY PRN #3000 ml 08/08/20 oral suspension (Milk of Magnesia) oxycodone 5 mg capsule 5 mg PO TID PRN #14 cap 12/31/20 Allergies Allergy/AdvReac Type Severity Reaction Status Date / Time No Known Drug Allergies Allergy Verified 06/28/21 10:49 Review of Systems Review of Systems ROS Unobtainable: Unobtainable due to mental status/LOC Patient History Medical History Advance care planning Anxiety (Unknown) Breast cancer (1979) Cataracts, bilateral (~1999) Chickenpox (Unknown) Dementia Depression (Unknown) Diabetes (Unknown) Fecal incontinence (2015) Fibromyalgia (Unknown) Generalized headaches (Unknown) Hoarseness Hypercholesterolemia (Unknown) Malaria (Unknown) Memory impairment (07/13/16) Memory loss (Unknown) Migraines (Unknown) Mumps (Unknown) Poor short term memory Stiff neck (09/10/17) Type 2 diabetes mellitus without complication, without long-term current use of insulin (09/10/17) Urinary incontinence (1999) Surgical History History of tonsillectomy Status post appendectomy Status post dilation and curettage Family History Father Heart disease Social History marital status: lives independently: Yes caregiver/support person: Yes education level: master's degree Smoking Status: Never smoker alcohol intake: current substance use type: does not use Smoking Status: Never smoker alcohol intake frequency: 0-2 drinks per day Substance Use Type: does not use Exam Narrative Exam Narrative: GENERAL: [86 year old patient appears stated age. Well-developed patient, in mild distress. Neurologic status at baseline per medics and nursing staff. HEAD: Atraumatic. Normocephalic. EYES: Pupils equal round and reactive. Extraocular motions intact. No scleral icterus. No injection or drainage. ENT: Nose without bleeding, purulent drainage. Throat without erythema, tonsillar hypertrophy or exudate. Airway patent. NECK: Trachea midline. Non tender CARDIOVASCULAR: Regular rate and rhythm without murmurs, gallops, or rubs. RESPIRATORY: Clear to auscultation. Breath sounds equal bilaterally. No wheezes, rales, or rhonchi. GASTROINTESTINAL: Abdomen soft, non-tender, nondistended. EXTREMITIES: No edema or joint tenderness. BACK: Nontender without deformity or crepitance. No flank tenderness. NEURO: Cranial nerves 2-12 grossly intact. SKIN: No rash or erythema of visible areas Initial Vital Signs Initial Vital Signs: Vital Signs Temperature 96.1 F L 08/03/21 06:47 Pulse Rate 70 08/03/21 06:47 Respiratory Rate 18 08/03/21 06:47 Blood Pressure 126/73 08/03/21 06:47 Pulse Oximetry 99 08/03/21 06:47 Scores GCS [place] coma scale eye opening: Spontaneous [place] coma scale verbal response: Confused Ari coma scale motor response: Obey commands [place] coma scale total score: 14 Course Orders Ordered: ED Orders 08/03/21 07:16 CT head/brain wo con Stat XR chest 1V Stat XR pelvis 1-2V Stat 08/03/21 07:49 CT cervical spine wo con Stat Discontinued Medications Clonazepam (Clonazepam 0.5 Mg Tablet) 0.25 mg PO NOW ONE Stop: 08/03/21 09:01 Last Admin: 08/03/21 09:11 Dose: 0.25 mg Documented by: BTONER Vital Signs Vital signs: Vital Signs - 8 hr 08/03/21 06:47 Temperature 96.1 F L Pulse Rate 70 Respiratory Rate 18 Blood Pressure 126/73 Pulse Oximetry 99 MDM - Fall Imaging Data CT scan - head: Radiologist's Impression: [address] [address] [address] Scan Report Signed Patient: Vickie Alston MR#: [id number] : 1935 Acct:[id number] Age/Sex: 86 / F Date of Service: 08/03/21 Loc: ED Accession Number: [id number] ?? Procedure: CT head/brain wo con Ordering Provider: Wally Nieto D.O. PROCEDURE:? CT HEAD/BRAIN WO CON ? INDICATIONS:? fall ? TECHNIQUE:? Noncontrast 4.5 mm thick angled axial sections acquired from the foramen magnum to the vertex, with coronal and sagittal reformats.? For radiation dose reduction, the following was used:? automated exposure control, adjustment of mA and/or kV according to patient size.? ? COMPARISON:? [facility], CT, CT HEAD/BRAIN WO CON, 06/23/2021, 16:37. ? FINDINGS:? Image quality:? Excellent.? ? CSF spaces:? Basal cisterns are patent.? No extra-axial fluid collections.? The ventricles are symmetric in size and shape.? ? Brain:? No intracranial bleeds or masses.? There is cerebral volume loss for age, with resultant ventricular and sulcal prominence.? There are periventricular and deep white matter chronic small vessel ischemic changes.? There is intracranial internal carotid artery atherosclerosis.? ? Skull and face:? Calvarium and visualized facial bones appear intact, without suspicious lesions.? ? Sinuses:? Visualized sinuses and mastoids are clear.? ? IMPRESSION:? 1. No acute intracranial abnormality. 2. Cerebral volume loss and small vessel ischemic changes.? Dictated by: Tor Nails M.D. on 08/03/2021 at 8:10 ? ? Approved by: Tor Nails M.D. on 08/03/2021 at 8:12 ? CT - cervical spine: Radiologist's Impression: [address] [address] [address] Scan Report Signed Patient: Vickie Alston MR#: [id number] : 1935 Acct:[id number] Age/Sex: 86 / F Date of Service: 08/03/21 Loc: ED Accession Number: [id number] ?? Procedure: CT cervical spine wo con Ordering Provider: Wally Nieto D.O. PROCEDURE:? CT CERVICAL SPINE WO CON ? INDICATIONS:? fall ? TECHNIQUE:? Noncontrast 3 mm thick sections acquired from the skull base to the T4 level.? Sagittal and coronal reformats were then constructed.? For radiation dose reduction, the following was used:? automated exposure control, adjustment of mA and/or kV according to patient size.? ? COMPARISON:? [facility], CT, CT CERVICAL SPINE WO CON, 06/23/2021, 16:37. ? FINDINGS:? Image quality:? Excellent.? ? Bones:? No fractures or dislocations.? Visualized superior ribs are intact.? Multilevel degenerative disc disease most prominent at C4-5 and C6-7.? There is facet arthropathy at multiple levels. ? Soft tissues:? Prevertebral soft tissues are normal in thickness.? No paravertebral hematomas.? No apical pneumothoraces.? ? ? IMPRESSION:? 1. Multilevel degenerative disc disease and facet arthropathy. 2. No acute abnormality.? Dictated by: Tor Nails M.D. on 08/03/2021 at 8:12 ? ? Approved by: Tor Nails M.D. on 08/03/2021 at 8:15 ? Chest x-ray: Radiologist's Impression: [address] [address] XRay Report Signed Patient: Vickie Alston MR#: [id number] : 1935 Acct:[id number] Age/Sex: 86 / F Date of Service: 08/03/21 Loc: ED Accession Number: [id number] ?? Procedure: XR chest 1V Ordering Provider: Wally Nieto D.O. PROCEDURE:? XR CHEST 1V ? INDICATIONS:? fall, trauma ? TECHNIQUE:? One view of the chest was acquired.? ? COMPARISON:? [facility], CR, XR CHEST 1V, 01/23/2021, 20:43. ? FINDINGS:? ? Surgical changes and devices:? None.? ? Lungs and pleura:? Lungs are clear.? No pleural effusions or pneumothorax.? ? Mediastinum:? Mediastinal contours appear normal.? Heart size is normal.? ? Bones and chest wall:? No suspicious bony lesions.? Overlying soft tissues appear unremarkable.? ? IMPRESSION:? No acute cardiopulmonary abnormality. ? ? Dictated by: Tor Nails M.D. on 08/03/2021 at 8:23 ? ? Approved by: Tor Nails M.D. on 08/03/2021 at 8:23 ? pelvis: Radiologist's Impression: [address] [address] XRay Report Signed Patient: Vickie Alston MR#: [id number] : 1935 Acct:[id number] Age/Sex: 86 / F Date of Service: 08/03/21 Loc: ED Accession Number: [id number] ?? Procedure: XR pelvis 1-2V Ordering Provider: Wally Nieto D.O. PROCEDURE:? XR PELVIS 1-2V ? INDICATIONS:? fall, trauma ? TECHNIQUE:? AP view(s) of the pelvis acquired.? ? COMPARISON:? [facility], CR, XR PELVIS 1-2V, 01/12/2021, 21:02. ? FINDINGS:? ? Bones:? No fractures or dislocations.? No suspicious bony lesions.? 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 ? Soft tissues:? Visualized bowel gas pattern is normal.? No suspicious soft tissue calcifications.? ? IMPRESSION:? 1. No acute abnormality of the pelvis. 2. Degenerative changes of both hips.? ? ? Dictated by: Tor Nails M.D. on 08/03/2021 at 8:20 ? ? Approved by: Tor Nails M.D. on 08/03/2021 at 8:22 ? MDM Narrative Medical decision making narrative: Patient with reassuring physical exam and imaging. No obvious injury. Patient is at neurologic baseline. Nursing has been in contact with DPOA. She is a DNR with comfort measures. No obvious need for intervention. Discharge Plan Departure Patient Disposition: Home Clinical Impression: Feared complaint without diagnosis, Fall Instructions: How to Prevent Falls Activity Restrictions/Additional Instructions: *You have been diagnosed with [fall without obvious traumatic injury. Physical exam and imaging are very reassuring *What to do: *Please continue to take your regular medications as directed. [ ] New medication prescriptions sent to your pharmacy: [ ] [ ] New medication written as a paper prescription [x ] No new medications given *Please follow up with your primary care provider in 2-3 days, call for an appointment. Let them know you were seen in the Emergency Department and that we ask that you be seen in follow up. We will electronically transmit a record of today's note if your PCP is in our system *If you do not have a primary care provider please contact the [facility] Resource line at [phone]. They will ask some questions about your medical history and help get you set up with a doctor in the community. *Return to Emergency Department if you should have any new, worsening or concerning symptoms, such as [fever greater than 101 F, shaking chills, worsening pain, persistent vomiting or other bothersome symptoms] Prescriptions: No Action magnesium hydroxide [Milk of Magnesia] 400 mg/5 mL suspension 30 ml PO DAILY PRN (Reason: constipation) Qty: 3000 3RF Rx Instructions: Give 30ml of milk of magnesia or generic equivalent by mouth if no BM in 3 days or for complaint of constipation PRN. If ineffective after 24 hours, give bisacodyl suppository per order bisacodyl 5 mg tablet 10 mg PO BEDTIME PRN (Reason: constipation) Qty: 30 3RF Rx Instructions: Take Bisacodyl 5mg, 2 tablets by mouth for constipation not relieved by MOM. If ineffective after 24 hours notify acetaminophen 325 mg capsule 650 mg PO Q4H PRN (Reason: fever or pain) Qty: 30 3RF Rx Instructions: Give 2 tablets (650mg) by mouth every four hours as needed for complaints of mild/moderate headaches, musculoskeletal pain or fever>100F. If pain is not relieved or fever not <100 in 4 hours, notify MD. Do not exceed 3000mg APAP/24 hours from all sources. divalproex 125 mg capsule, delayed rel sprinkle 125 mg PO ONCE Qty: 180 3RF Rx Instructions: Take 1 cap at bedtime daily, may repeat 1x/24 hours as needed for agitation donepezil 10 mg tablet 10 mg PO BEDTIME Qty: 90 3RF Rx Instructions: Take 1 tab by mouth daily for confusion oxycodone 5 mg capsule 5 mg PO TID PRN (Reason: rib pain) Qty: 14 0RF
[2021-08-03] MEDS: clonazePAM 0.5 MG TABLET 0.25 MG PO (09:11)
== END 2021-08-03 09:49 | disposition home or self-care (01) ==
PROVIDERS: Emergency Provider Emergency Medicine
DX: Z04.3 Encounter for examination and observation following other accident (principal); Z66 Do not resuscitate; W19.XXXA Unspecified fall, initial encounter; Y92.129 Unspecified place in nursing home as the place of occurrence of the external cause
CPT/HCPCS: 70450; 71045; 72125; 72170; 99283; 99284

== ENCOUNTER → 2021-08-04 11:28 | Outpatient (ROUT) | payer MEDICARE, OTHER, SELFPAY ==
[2021-08-04 11:37] LABS: Appearance Urine UA CLEAR; Bilirubin Urine UA NEGATIVE (NEGATIVE); Color Urine UA YELLOW; Glucose Urine UA 1+ g/dL (Negative); Ketones Urine UA NEGATIVE (NEGATIVE); Leukocyte Esterase Urine UA TRACE (NEGATIVE); Nitrite Urine UA NEGATIVE (Negative); Occult Blood Urine UA TRACE-LYSED (Negative); Protein Urine UA NEGATIVE (Negative); Urobilinogen Urine UA 0.2 E.U./dL (0.2)
[2021-08-04 11:41] LABS: RBC Urine None Seen (0-5/HPF); WBC Urine None Seen (0-5/HPF)
[2021-08-04 11:42] LABS: Bacteria Urine None Seen; Culture Indicated Urine Cult Not Indicated; Urine Comments Microscopic Normal
== END ==
PROVIDERS: Visit Provider Nurse Practitioner Family
DX: R33.9 Retention of urine, unspecified (principal)
CPT/HCPCS: 81001

== ENCOUNTER 2021-08-04 11:52 | Emergency (ER) | payer MEDICARE, OTHER, SELFPAY ==
[2021-08-04 12:00] VITALS: BP 118/60; PULSE 82; TEMP 36.6; O2SAT 92
[2021-08-04 12:30] VITALS: O2SAT 96
[2021-08-04 12:31] VITALS: BP 135/71; PULSE 88; RESP 18; O2SAT 95
--- NOTE | 2021-08-04 13:31 | DI.CT.S_ITS ---
PROCEDURE: CT HEAD/BRAIN WO CON INDICATIONS: fall, unwitnessed TECHNIQUE: Noncontrast 4.5 mm thick angled axial sections acquired from the foramen magnum to the vertex, with coronal and sagittal reformats. For radiation dose reduction, the following was used: automated exposure control, adjustment of mA and/or kV according to patient size. COMPARISON: [facility], CT, CT HEAD/BRAIN WO CON, 06/17/2021, 17:30. [facility], CT, CT HEAD/BRAIN WO CON, 06/23/2021, 16:37. [facility], CT, CT CERVICAL SPINE WO CON, 08/03/2021, 7:42. [facility], CT, CT HEAD/BRAIN WO CON, 08/03/2021, 7:42. FINDINGS: Image quality: Excellent. CSF spaces: Basal cisterns are patent. No extra-axial fluid collections. The ventricles are symmetric in size and shape. Brain: No intracranial bleeds or masses. There is cerebral volume loss for age, with resultant ventricular and sulcal prominence. There are periventricular and deep white matter chronic small vessel ischemic changes. There is intracranial internal carotid artery atherosclerosis. Skull and face: Calvarium and visualized facial bones appear intact, without suspicious lesions. Sinuses: Visualized sinuses and mastoids are clear. IMPRESSION: No acute intracranial hemorrhage is seen. No acute intracranial process is seen. Note is made of age-appropriate brain parenchymal volume loss and chronic small vessel ischemic changes. Dictated by: Kyrie Kirk M.D. on 08/04/2021 at 12:55 Approved by: Kyrie Kirk M.D. on 08/04/2021 at 12:56
[2021-08-04 13:46] VITALS: PULSE 75; O2SAT 96
[2021-08-04 14:00] VITALS: PULSE 74; O2SAT 95
--- NOTE | 2021-08-04 14:06 | ED.FALL ---
HPI - Fall General Chief Complaint: Fall Stated Complaint: unwitnessed Fall Time Seen by Provider: 08/04/21 11:53 Source: EMS Mode of arrival: EMS History of Present Illness HPI Narrative: 86-year-old female nonsmoker with history of dementia, anxiety, depression, type 2 diabetes, hyperlipidemia, fibromyalgia, presents again for evaluation of an unwitnessed fall. She has had a local memory care facility and was found on the ground. She has no complaints and there is no obvious external manifestation of injury. Related Data Previous Rx's Medication Instructions Recorded donepezil 10 mg tablet 10 mg PO BEDTIME #90 tab 05/24/20 divalproex 125 mg capsule,delayed 125 mg PO ONCE #180 cap 06/14/20 release sprinkle acetaminophen 325 mg capsule 650 mg PO Q4H PRN #30 cap 08/08/20 bisacodyl 5 mg tablet 10 mg PO BEDTIME PRN #30 tab 08/08/20 magnesium hydroxide 400 mg/5 mL 30 ml PO DAILY PRN #3000 ml 08/08/20 oral suspension (Milk of Magnesia) oxycodone 5 mg capsule 5 mg PO TID PRN #14 cap 12/31/20 Allergies Allergy/AdvReac Type Severity Reaction Status Date / Time No Known Drug Allergies Allergy Verified 08/04/21 12:08 Review of Systems Review of Systems ROS Unobtainable: Unobtainable due to mental status/LOC Patient History Medical History Advance care planning Anxiety (Unknown) Breast cancer (1979) Cataracts, bilateral (~1999) Chickenpox (Unknown) Dementia Depression (Unknown) Diabetes (Unknown) Fecal incontinence (2016) Fibromyalgia (Unknown) Generalized headaches (Unknown) Hoarseness Hypercholesterolemia (Unknown) Malaria (Unknown) Memory impairment (07/13/16) Memory loss (Unknown) Migraines (Unknown) Mumps (Unknown) Poor short term memory Stiff neck (09/10/17) Type 2 diabetes mellitus without complication, without long-term current use of insulin (09/10/17) Urinary incontinence (1999) Surgical History History of tonsillectomy Status post appendectomy Status post dilation and curettage Family History Father Heart disease Social History marital status: lives independently: Yes caregiver/support person: Yes education level: master's degree Smoking Status: Never smoker alcohol intake: current substance use type: does not use Smoking Status: Never smoker alcohol intake frequency: 0-2 drinks per day Substance Use Type: does not use Exam Narrative Exam Narrative: GENERAL: [86 year old patient appears stated age. Pleasantly confused, no obvious external manifestation of injury. GCS 14 (confused) HEAD: Atraumatic. Normocephalic. EYES: Pupils equal round and reactive. Extraocular motions intact. No scleral icterus. No injection or drainage. ENT: Nose without bleeding, purulent drainage. Throat without erythema, tonsillar hypertrophy or exudate. Airway patent. NECK: Trachea midline. Non tender CARDIOVASCULAR: Regular rate and rhythm without murmurs, gallops, or rubs. RESPIRATORY: Clear to auscultation. Breath sounds equal bilaterally. No wheezes, rales, or rhonchi. GASTROINTESTINAL: Abdomen soft, non-tender, nondistended. EXTREMITIES: No edema or joint tenderness. BACK: Nontender without deformity or crepitance. No flank tenderness. NEURO: Cranial nerves 2-12 grossly intact SKIN: No rash or erythema of visible areas Initial Vital Signs Initial Vital Signs: Vital Signs Temperature 97.9 F 08/04/21 12:00 Pulse Rate 82 08/04/21 12:00 Blood Pressure 118/60 08/04/21 12:00 Pulse Oximetry 92 08/04/21 12:00 Course Orders Ordered: ED Orders 08/04/21 13:31 CT head/brain wo con Stat Vital Signs Vital signs: Vital Signs - 8 hr 08/04/21 14:00 Pulse Rate 74 Pulse Oximetry 95 MDM - Fall Imaging Data CT scan - head: Radiologist's Impression: [address] [address] [address] Scan Report Signed Patient: Vickie Alston MR#: [id number] : 1935 Acct:[id number] Age/Sex: 86 / F Date of Service: 08/04/21 Loc: ED Accession Number: [id number] ?? Procedure: CT head/brain wo con Ordering Provider: Wally Nieto D.O. PROCEDURE:? CT HEAD/BRAIN WO CON ? INDICATIONS:? fall, unwitnessed ? TECHNIQUE:? Noncontrast 4.5 mm thick angled axial sections acquired from the foramen magnum to the vertex, with coronal and sagittal reformats.? For radiation dose reduction, the following was used:? automated exposure control, adjustment of mA and/or kV according to patient size.? ? COMPARISON:? [facility], CT, CT HEAD/BRAIN WO CON, 06/17/2021, 17:30.? [facility], CT, CT HEAD/BRAIN WO CON, 06/23/2021, 16:37.? [facility], CT, CT CERVICAL SPINE WO CON, 08/03/2021, 7:42.? [facility], CT, CT HEAD/BRAIN WO CON, 08/03/2021, 7:42. ? FINDINGS:? Image quality:? Excellent.? ? CSF spaces:? Basal cisterns are patent.? No extra-axial fluid collections.? The ventricles are symmetric in size and shape.? ? Brain:? No intracranial bleeds or masses.? There is cerebral volume loss for age, with resultant ventricular and sulcal prominence.? There are periventricular and deep white matter chronic small vessel ischemic changes.? There is intracranial internal carotid artery atherosclerosis.? ? Skull and face:? Calvarium and visualized facial bones appear intact, without suspicious lesions.? ? Sinuses:? Visualized sinuses and mastoids are clear.? ? ? IMPRESSION:? No acute intracranial hemorrhage is seen.? ? No acute intracranial process is seen.? ? Note is made of age-appropriate brain parenchymal volume loss and chronic small vessel ischemic changes. ? ? Dictated by: Kyrie Kirk M.D. on 08/04/2021 at 12:55 ? ? Approved by: Kyrie Kirk M.D. on 08/04/2021 at 12:56 ? MDM Narrative Medical decision making narrative: 79-year-old female with dementia presents under similar circumstances as she has multiple times recently. She has an unwitnessed fall nerves no obvious external manifestation of illness or disease. She is at her baseline on arrival. Imaging is unremarkable. Vitals are reassuring. No indication for further evaluation, treatment or intervention. Discharge Plan Departure Patient Disposition: Home Clinical Impression: Feared complaint without diagnosis, Fall Instructions: How to Prevent Falls Activity Restrictions/Additional Instructions: There is no evidence of an emergent or life threatening illness at this time, but follow up with your doctor in 1-2 days is recommended nonetheless to continue to rule out serious underlying causes of your symptoms. Please call the office for an appointment. Please return to the Emergency Department for any worsening or persistent symptoms. Please take medications as directed. Prescriptions: No Action magnesium hydroxide [Milk of Magnesia] 400 mg/5 mL suspension 30 ml PO DAILY PRN (Reason: constipation) Qty: 3000 3RF Rx Instructions: Give 30ml of milk of magnesia or generic equivalent by mouth if no BM in 3 days or for complaint of constipation PRN. If ineffective after 24 hours, give bisacodyl suppository per order bisacodyl 5 mg tablet 10 mg PO BEDTIME PRN (Reason: constipation) Qty: 30 3RF Rx Instructions: Take Bisacodyl 5mg, 2 tablets by mouth for constipation not relieved by MOM. If ineffective after 24 hours notify MD acetaminophen 325 mg capsule 650 mg PO Q4H PRN (Reason: fever or pain) Qty: 30 3RF Rx Instructions: Give 2 tablets (650mg) by mouth every four hours as needed for complaints of mild/moderate headaches, musculoskeletal pain or fever>100F. If pain is not relieved or fever not <100 in 4 hours, notify MD. Do not exceed 3000mg APAP/24 hours from all sources. divalproex 125 mg capsule, delayed rel sprinkle 125 mg PO ONCE Qty: 180 3RF Rx Instructions: Take 1 cap at bedtime daily, may repeat 1x/24 hours as needed for agitation donepezil 10 mg tablet 10 mg PO BEDTIME Qty: 90 3RF Rx Instructions: Take 1 tab by mouth daily for confusion oxycodone 5 mg capsule 5 mg PO TID PRN (Reason: rib pain) Qty: 14 0RF
== END 2021-08-04 14:49 | disposition home or self-care (01) ==
PROVIDERS: Emergency Provider Emergency Medicine
DX: Z04.3 Encounter for examination and observation following other accident (principal); W19.XXXA Unspecified fall, initial encounter; Y92.129 Unspecified place in nursing home as the place of occurrence of the external cause
CPT/HCPCS: 70450; 99283; 99284